=== PATIENT | female | born 1930 | race Hispanic/Latino ===

== ENCOUNTER 2016-10-20 18:00 | Inpatient (IN) | payer MEDICARE ==
[2016-10-20 18:03] VITALS: BMI 36.3
[2016-10-20] MEDS ORDERED: Morphine 4 mg/ml ISec IVP STA (18:45)
[2016-10-20 18:55] LABS: ADD MANUAL DIFF? NO
--- NOTE | 2016-10-20 18:56 | ED PDOC ---
Arrival/HPI - General Chief Complaint: Trauma Time Seen by Provider: 10/20/16 18:34 Historian: Patient - History of Present Illness Narrative History of Present Illness (Text): 10/20/16 18:45 Jennifer Garcia is a 86 year old female, with a history of hypertension, right arm fracture, left hip fracture and peripheral neuropathy, presents to the emergency room for evaluation of right hip pain status post mechanical fall around 17:00. Patient's neighbor found the patient on the floor after hearing a "thud" and called 911. Patient reports that she was turning around to move a dish to the table when she thinks she tripped and fell on the right side of the body. Patient reports that she lightly hit her right side of the head, but denies any loss of consciousness. Patient reports of pain to the right hip and leg. Patient presented to emergency room on 10/16/2016 for right lower extremity pain and was discharged home after negative US study. Denies fever, chills, headache, dizziness, chest pain, SOB, nausea, vomiting, diarrhea, or an other complaints at this time. PMD: . Time/Duration: 1-3 hours Symptom Onset: Sudden Severity Level: Mild Activities at Onset: Significant Context: Home, Slipped Past Medical History - Provider Review Nursing Documentation Reviewed: Yes - Infectious Disease Hx of Infectious Diseases: None - Tetanus Immunization Tetanus Immunization: Unknown - Past Medical History Past Medical History: Non-Contributing - Cardiac Hx Cardiac Disorders: Yes Hx Hypertension: Yes - Pulmonary Hx Respiratory Disorders: No - Neurological Hx Neurological Disorder: No - HEENT Hx HEENT Disorder: No - Renal Hx Renal Disorder: No - Endocrine/Metabolic Hx Endocrine Disorders: No - Hematological/Oncological Hx Blood Disorders: No - Integumentary Hx Dermatological Disorder: No - Musculoskeletal/Rheumatological Hx Musculoskeletal Disorders: Yes Hx Falls: Yes Hx Fractures: Yes (Left shoulder Fx 04/28/14) Other/Comment: Previous Fx: Right arm fracture and Left hip fx ,L1 fracture - Gastrointestinal Hx Gastrointestinal Disorders: Yes Hx Gastroesophageal Reflux: Yes - Genitourinary/Gynecological Hx Genitourinary Disorders: No - Psychiatric Hx Psychophysiologic Disorder: Yes Hx Anxiety: Yes Hx Panic Disorder: Yes Hx Substance Use: No - Past Surgical History Past Surgical History: No Previous - Surgical History Hx Appendectomy: Yes Hx Hysterectomy: Yes - Anesthesia Hx Anesthesia: Yes Hx Anesthesia Reactions: No Hx Malignant Hyperthermia: No - Suicidal Assessment Feels Threatened In Home Enviroment: No Family/Social History - Physician Review Nursing Documentation Reviewed: Yes Family/Social History: No Known Family HX Smoking Status: Never Smoked Hx Alcohol Use: No Hx Substance Use: No Hx Substance Use Treatment: No Allergies/Home Meds Allergies/Adverse Reactions: Allergies ibuprofen [From Advil] Allergy (Verified 10/20/16 18:03) RASH Home Medications: Home Meds Medication Instructions Recorded Confirmed Clonazepam [Klonopin] 0.5 mg PO .AM 01/08/16 10/20/16 Gabapentin [Neurontin] 100 mg PO BID 01/08/16 10/20/16 amLODIPine [Norvasc] 10 mg PO DAILY 01/08/16 10/20/16 Pregabalin [Lyrica] 50 mg PO TID 05/11/16 10/20/16 Calcium Carbonate/Vitamin D3 1 tab PO DAILY 10/16/16 10/20/16 [Caltrate 600 + D Soft Chew Tab] DULoxetine [Cymbalta] 30 mg PO DAILY 10/16/16 10/20/16 Multivitamin [Multivitamins] 1 tab PO DAILY 10/16/16 10/20/16 clonazePAM [Klonopin] 1 mg PO HS 10/16/16 10/20/16 Review of Systems - Physician Review All systems were reviewed & negative as marked: Yes - Review of Systems Constitutional: Normal. absent: Fatigue, Fevers Respiratory: Normal Cardiovascular: Normal Musculoskeletal: Other (right hip and leg pain ) Psychiatric: Normal Physical Exam - Physical Exam Narrative Physical Exam (Text): Constitutional: No acute distress. Head: Normocephalic. Atraumatic. Eyes: PERRL. ENT: Moist mucous membranes. Neck: Supple. Cardiovascular: Regular rate. Chest: No tenderness. Respiratory: Clear to auscultation bilaterally. GI: Soft. Nontender. Nondistended. Back: No CVA tenderness. Musculoskeletal: Right leg shortened and externally rotated. Edematous femur. Skin: No rash. Neurologic: Alert, no focal deficit. Vital Signs Reviewed: Yes Vital Signs Temp Pulse Resp BP Pulse Ox 10/20/16 18:19 97.6 F 70 16 159/68 H 96 Temperature: Afebrile Blood Pressure: Normal Pulse: Regular Respiratory Rate: Normal Appearance: Positive for: Non-Toxic Pain Distress: Mild Mental Status: Positive for: Alert and Oriented X 3 Medical Decision Making ED Course and Treatment: 10/20/16 18:59 Impression: A 86 year old female who presents to the emergency room for evaluation of right hip pain status post mechanical fall. Plan: -- EKG -- CT head -- Labs -- Chest X-ray -- Morphine -- X-ray hip -- Reassess and disposition Progress Notes: 10/20/16 19:45 X-ray shows right hip fracture. 10/20/16 19:51 CT head results reviewed: IMPRESSION: No acute intracranial findings. Right lateral frontotemporal scalp contusion. 10/20/16 20:09 Case discussed with who is aware and agrees with the plan to admit patient to the hospital for hip fracture. Accepts patient under hospitalist service with Dr. Villalta on orthopedic consult. - Lab Interpretations Lab Results: 10/20/16 18:15 10/20/16 18:15 Lab Results 10/20/16 18:15: WBC 6.7, RBC 3.98, Hgb 11.5 L, Hct 33.7 L, MCV 84.7, MCH 28.9, MCHC 34.1, RDW 14.8 H, Plt Count 275, MPV 10.1, Gran % 63.3, Lymph % (Auto) 28.3 , Osborne % (Auto) 6.7 H, Eos % (Auto) 1.6, Baso % (Auto) 0.1, Gran # 4.22, Lymph # 1.9, Osborne # 0.5, Eos # 0.1, Baso # 0.01, PT 11.4, INR 1.06, APTT 28.4, Sodium 139, Potassium 3.8, Chloride 100, Carbon Dioxide 28, Anion Gap 15, BUN 29 H, Creatinine 0.8, Est GFR ( Amer) > 60, Est GFR (Non-Af Amer) > 60, Random Glucose 145 H, Calcium 9.0, Total Bilirubin 0.5, AST 16, ALT 14, Alkaline Phosphatase 77, Total Creatine Kinase 47, Total Protein 8.2, Albumin 4.2, Globulin 4.0, Albumin/Globulin Ratio 1.1, Blood Type O POSITIVE, Antibody Screen Negative, BBK History Checked Patient has bt I have reviewed the lab results: Yes - RAD Interpretation Narrative RAD Interpretations (Text): EXAM: CT Head Without Intravenous Contrast. FINDINGS: Brain: Volume loss. Chronic small vessel white matter ischemic change. 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 No acute hemorrhage. No acute infarct. Calcification of the wall of the distal internal carotid and vertebral arteries. Ventricles: Unremarkable. No ventriculomegaly. Bones/joints: Unremarkable. No acute fracture. Soft tissues: There is mild increased density swelling of the right lateral frontotemporal scalp. Sinuses: Mild ethmoid sinus mucosal thickening. No fluid levels. Mastoid air cells: Unremarkable as visualized. No mastoid effusion. IMPRESSION: No acute intracranial findings. Right lateral frontotemporal scalp contusion. Non acute findings as above. Radiology Orders: 10/20/16 18:43 CHEST ONE VIEW [RAD] Stat HIP MIN 2V W/ PELVIS RT [RAD] Stat 10/20/16 18:44 HEAD W/O CONTRAST [CT] Stat Vice President Safety: Radiologist - EKG Interpretation Interpreted by ED Physician: Yes Type: 12 lead EKG - Medication Orders Current Medication Orders: Acetaminophen (Tylenol 325mg Tab) 650 mg PO Q6 PRN PRN Reason: Fever >100.4 F Amlodipine Besylate (Norvasc) 10 mg PO DAILY ZENOBIA Calcium/Vitamin D (Oscal-D 250 Mg-125 Units Tab) 2 tab PO DAILY ZENOBIA Calcium/Vitamin D (Oscal-D 250 Mg-125 Units Tab) 3 tab PO DAILY ZENOBIA Clonazepam (Klonopin) 0.5 mg PO .AM ZENOBIA PRN Reason: Protocol Clonazepam (Klonopin) 1 mg PO HS ZENOBIA PRN Reason: Protocol Duloxetine HCl (Cymbalta) 30 mg PO DAILY ZENOBIA Gabapentin (Neurontin) 100 mg PO BID ZENOBIA PRN Reason: Protocol Sodium Chloride (Sodium Chloride 0.9%) 1,000 mls @ 50 mls/hr IV .Q20H ZENOBIA Morphine Sulfate (Morphine) 2 mg IVP Q4 PRN PRN Reason: Pain, Mild (1-3) Multivitamins (Thera Tab) 1 tab PO DAILY ZENOBIA Ondansetron HCl (Zofran Inj) 4 mg IVP Q6 PRN PRN Reason: Nausea/Vomiting Pantoprazole Sodium (Protonix Ec Tab) 40 mg PO DAILY ZENOBIA Pregabalin (Lyrica) 50 mg PO TID ZENOBIA Discontinued Medications Morphine Sulfate (Morphine) 4 mg IVP STAT STA Stop: 10/20/16 18:46 Last Admin: 10/20/16 19:00 Dose: 4 MG MAR Pain Assessment Document 10/20/16 19:00 HI (Rec: 10/20/16 19:01 [id number]) Pain Reassessment Is this a pain reassessment? Yes Sleep Is patient sleeping during reassessment? No Presence of Pain Presence of Pain Yes Pain Scale Used Pain Scale Used Numeric IVP Administration Document 10/20/16 19:00 HI (Rec: 10/20/16 19:01 [id number]) Charges for Administration # of IVP Administrations 1 - Scribe Statement The provider has reviewed the documentation as recorded by the Beata Reynoso Provider Attestation: All medical record entries made by the Beata were at my direction and personally dictated by me. I have reviewed the chart and agree that the record accurately reflects my personal performance of the history, physical exam, medical decision making, and the department course for this patient. I have also personally directed, reviewed, and agree with the discharge instructions and disposition. Disposition/Present on Arrival - Present on Arrival Any Indicators Present on Arrival: No History of DVT/PE: No History of Uncontrolled Diabetes: No Urinary Catheter: No History of Decub. Ulcer: No History Surgical Site Infection Following: None - Disposition Have Diagnosis and Disposition been Completed?: Yes Diagnosis: Fracture of hip Disposition: HOSPITALIZED Disposition Time: 19:25 Patient Plan: Admission Condition: STABLE
[2016-10-20 19:08] LABS: ALB/GLOB RATIO 1.1 (1.1-1.8); ALKALINE PHOSPHATASE 77 U/L (38-133); ALT/SGPT 14 U/L (7-56); AST/SGOT 16 U/L (15-39); BILIRUBIN,TOTAL 0.5 mg/dL (0.2-1.3); BLOOD UREA NITROGEN 29 mg/dL (7-21); CARBON DIOXIDE 28 mmol/L (21-33); CHLORIDE 100 mmol/L (98-107); GFR AFRICAN-AMERICAN > 60; GLUCOSE,RANDOM 145 mg/dL (70-110); POTASSIUM 3.8 mmol/L (3.6-5.0); SODIUM 139 mmol/L (132-148); TOTAL PROTEIN 8.2 g/dL (5.8-8.3)
[2016-10-20 19:34] LABS: BASO # 0.01 K/mm3 (0.0-2.0); BASO % 0.1 % (0.0-3.0); EOS # 0.1 (0.0-0.7); EOS % 1.6 % (1.5-5.0); GRAN # 4.22 (1.4-6.5); GRAN % 63.3 % (50.0-68.0); HEMATOCRIT 33.7 % (36.0-48.0); LYMPH # 1.9 (1.2-3.4); LYMPH % 28.3 % (22.0-35.0); MEAN CELL VOLUME 84.7 fL (80.0-105.0); MEAN CORPUSCULAR HEMOGLOBIN 28.9 pg (25.0-35.0); MEAN CORPUSCULAR HGB CONC 34.1 g/dl (31.0-37.0); MEAN PLATELET VOLUME 10.1 fl (7.0-11.0); MONO # 0.5 (0.1-0.6); MONO % 6.7 % (1.0-6.0); PLATELET COUNT 275 10^3/uL (120.0-450.0); RED CELL DISTRIBUTION WIDTH 14.8 % (11.5-14.5); WHITE BLOOD COUNT 6.7 10^3/ul (4.5-11.0)
[2016-10-20 19:42] LABS: INR 1.06 (0.93-1.08); PARTIAL THROMBOPLASTIN TIME 28.4 Seconds (23.7-30.8)
--- NOTE | 2016-10-20 20:54 | CP.PCM.HP ---
<Johnna Braden - Last Filed: 10/20/16 20:48> History of Present Illness - History of Present Illness History of Present Illness: CC: mechanical fall 86 year old female with past medical history of HTN, multiple falls, L hip fx s/ p L hip sx, L shoulder fx, peripheral neuropathy, OA, depression, anxiety, chronic neck and low back pain presents after having mechanical fall at home. Patient states that she was taking something off a table and twisting to put it on the counter behind her when she fell on the right side of her body. She landed on her hip and hit her head lightly. Patient denies any LOC or open lacerations. Patient ambulates with help of walker. Patient's only c/o is mild right hip pain and mild left sided MARIE. Patient does have history of MARIE. Patient denies having any CP, SOB, abd pain, N/V/D/C, dysuria. PMHx: stated above Sx: appendectomy, Left hip sx, hysterectomy Meds: see MAR Social: no tobacco, ETOH or drug use. 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 Adam Present on Admission - Present on Admission Any Indicators Present on Admission: No Review of Systems - Constitutional Constitutional: Headache. absent: Chills, Fever - EENT Eyes: absent: Change in Vision, Other Visual Disturbances Nose/Mouth/Throat: absent: Nasal Congestion, Nasal Discharge, Sore Throat - Cardiovascular Cardiovascular: absent: Chest Pain, Dyspnea, Dyspnea on Exertion, Edema, Leg Edema, Palpitations, Pedal Edema - Respiratory Respiratory: absent: Cough, Dyspnea, Dyspnea on Exertion, Wheezing, Chest Congestion - Gastrointestinal Gastrointestinal: absent: Abdominal Pain, Constipation, Diarrhea, Nausea, Vomiting - Genitourinary Genitourinary: absent: Dysuria, Urinary Frequency - Musculoskeletal Musculoskeletal: Arthralgias (right hip pain ), Back Pain. absent: Numbness, Tingling - Integumentary Integumentary: absent: Lesions, Rash - Neurological Neurological: absent: Dizziness, Numbness, Weakness - Psychiatric Psychiatric: absent: Anxiety, Depression Past Patient History - Infectious Disease Hx of Infectious Diseases: None - Tetanus Immunizations Tetanus Immunization: Unknown - Past Social History Smoking Status: Never Smoked Alcohol: None Drugs: Denies Home Situation {Lives}: Other (mule rider) - CARDIAC Hx Cardiac Disorders: Yes Hx Hypertension: Yes - PULMONARY Hx Respiratory Disorders: No - NEUROLOGICAL Hx Neurological Disorder: No - HEENT Hx HEENT Problems: No - RENAL Hx Chronic Kidney Disease: No - ENDOCRINE/METABOLIC Hx Endocrine Disorders: No - HEMATOLOGICAL/ONCOLOGICAL Hx Blood Disorders: No - INTEGUMENTARY Hx Dermatological Problems: No - MUSCULOSKELETAL/RHEUMATOLOGICAL Hx Musculoskeletal Disorders: Yes Hx Falls: Yes Hx Fractures: Yes (Left shoulder Fx 04/28/14) Other/Comment: Previous Fx: Right arm fracture and Left hip fx ,L1 fracture - GASTROINTESTINAL Hx Gastrointestinal Disorders: Yes Hx Gastroesophageal Reflux: Yes - GENITOURINARY/GYNECOLOGICAL Hx Genitourinary Disorders: No - PSYCHIATRIC Hx Psychophysiologic Disorder: Yes Hx Anxiety: Yes Hx Panic Symptoms: Yes Hx Substance Use: No - SURGICAL HISTORY Hx Appendectomy: Yes Hx Hysterectomy: Yes - ANESTHESIA Hx Anesthesia: Yes Hx Anesthesia Reactions: No Hx Malignant Hyperthermia: No Meds Allergies/Adverse Reactions: Allergies Allergy/AdvReac Type Severity Reaction Status Date / Time ibuprofen [From Advil] Allergy RASH Verified 10/20/16 18:03 Physical Exam - Constitutional Appears: Non-toxic, No Acute Distress - Head Exam Head Exam: ATRAUMATIC, NORMAL INSPECTION - ENT Exam ENT Exam: Mucous Membranes Moist - Respiratory Exam Respiratory Exam: Clear to Auscultation Bilateral, NORMAL BREATHING PATTERN. absent: Rales, Rhonchi, Wheezes - Cardiovascular Exam Cardiovascular Exam: REGULAR RHYTHM, RRR, +S1, +S2. absent: Diastolic murmur, Gallop, Rubs, Systolic Murmur - GI/Abdominal Exam GI & Abdominal Exam: Normal Bowel Sounds, Soft. absent: Distended, Firm, Guarding, Rigid, Tenderness - Extremities Exam Extremities exam: Positive for: joint swelling (right hip swelling and tenderness noted ), tenderness, pedal pulses present. Negative for: calf tenderness, full ROM, pedal edema Additional comments: good sensation in LE B/L - Neurological Exam Neurological exam: Alert, Oriented x3 - Psychiatric Exam Psychiatric exam: Normal Affect, Normal Mood - Skin Skin Exam: Dry, Intact, Normal Color, Warm Results - Vital Signs Recent Vital Signs: Last Vital Signs Temp 97.6 F 10/20/16 18:19 Pulse 70 10/20/16 18:19 Resp 16 10/20/16 18:19 BP 159/68 H 10/20/16 18:19 Pulse Ox 96 10/20/16 18:19 - Labs Result Diagrams: 10/20/16 18:15 10/20/16 18:15 - EKG Data EKG Interpreted by: ER Physician Assessment & Plan - Assessment and Plan (Free Text) Assessment: 86 year old female with past medical history of HTN, multiple falls, L hip fx s/ p L hip sx, L shoulder fx, peripheral neuropathy, OA, depression, anxiety, chronic neck and low back pain is admitted for fracture of right hip. Xray of hip shows fracture. Head CT was negative for acute hemorrhage or fracture but did show right lateral frontotemporal scalp contusion. Plan: 1. Right hip fracture - Will consult orthopedics, Dr. Villalta for further recs - Pain management: Morphine 2 mg IV q4 prn - Zofran prn nausea - Tylenol prn fever - CXR and EKG for pre-op workup - Type and screen ordered - NS 50 cc 2. HTN - will continue to monitor vital signs - continue home medications: Norvasc 3. Peripheral neuropathy - Continue home medications: neurotin and cymbalta and Lyrica 4. History of depression - Continue home medications: Klonipin 1 mg po hs and .5 mg po AM 5. Prophylaxis - SCDs - Protonix - Heart healthy diet - Multi vit, John+vitD Case d/w attending Dr. Hernandez - Date & Time Date: 10/20/16 Time: 20:58 <Gabriel Hernandez - Last Filed: 10/20/16 23:17> Results - Vital Signs Recent Vital Signs: Last Vital Signs Temp 97.6 F 10/20/16 18:19 Pulse 72 10/20/16 21:10 Resp 16 10/20/16 21:10 BP 158/70 H 10/20/16 21:10 Pulse Ox 98 10/20/16 21:10 - Labs Result Diagrams: 10/20/16 18:15 10/20/16 18:15 Attending/Attestation - Attestation I have personally seen and examined this patient.: Yes I have fully participated in the care of the patient.: Yes I have reviewed all pertinent clinical information: Yes Notes (Text): 10/20/16 23:17 Seen when she was in bed # 18 in the ER. Agree with history, physical examination, assessment and plan.
[2016-10-20] MEDS: Sodium Chloride 0.9% 1,000 ML IV SCH (21:36)
[2016-10-20] MEDS: Morphine 2 mg/ml ISec IVP PRN (23:31)
[2016-10-21 01:09] LABS: URINE BILIRUBIN NEGATIVE (NEGATIVE); URINE BLOOD NEGATIVE (NEGATIVE); URINE GLUCOSE (UA) NEGATIVE (NEGATIVE); URINE KETONE NEGATIVE (NEGATIVE); URINE LEUKOCYTE ESTERASE NEGATIVE Leu/uL (NEGATIVE); URINE PROTEIN NEGATIVE mg/dL (<30 mg/dL); URINE UROBILINOGEN 0.2 E.U./dL (<1 E.U./dL)
[2016-10-21 01:14] LABS: URINE APPEARANCE CLEAR (CLEAR); URINE COLOR YELLOW (YELLOW)
[2016-10-21] MEDS: Morphine 2 mg/ml ISec IVP PRN ×3 (03:38→13:55)
[2016-10-21 06:50] LABS: ADD MANUAL DIFF? NO
[2016-10-21 07:01] LABS: INR 1.03 (0.93-1.08); PARTIAL THROMBOPLASTIN TIME 28.1 Seconds (23.7-30.8)
[2016-10-21 07:07] LABS: ALKALINE PHOSPHATASE 67 U/L (38-133); AST/SGOT 16 U/L (15-39); BILIRUBIN,TOTAL 0.5 mg/dL (0.2-1.3); BLOOD UREA NITROGEN 27 mg/dL (7-21); CALCIUM 8.3 mg/dL (8.4-10.5); CARBON DIOXIDE 31 mmol/L (21-33); CHLORIDE 102 mmol/L (98-107); GFR AFRICAN-AMERICAN > 60; GLUCOSE,RANDOM 116 mg/dL (70-110); POTASSIUM 3.9 mmol/L (3.6-5.0); SODIUM 138 mmol/L (132-148); TOTAL PROTEIN 7.1 g/dL (5.8-8.3)
[2016-10-21 07:11] LABS: ALT/SGPT < 6 U/L (7-56)
[2016-10-21 07:16] LABS: BASO # 0.01 K/mm3 (0.0-2.0); BASO % 0.2 % (0.0-3.0); EOS # 0.1 (0.0-0.7); EOS % 0.8 % (1.5-5.0); GRAN # 4.37 (1.4-6.5); GRAN % 65.6 % (50.0-68.0); HEMATOCRIT 29.5 % (36.0-48.0); LYMPH # 1.6 (1.2-3.4); LYMPH % 24.7 % (22.0-35.0); MEAN CELL VOLUME 85.3 fL (80.0-105.0); MEAN CORPUSCULAR HGB CONC 32.9 g/dl (31.0-37.0); MEAN PLATELET VOLUME 9.8 fl (7.0-11.0); MONO # 0.6 (0.1-0.6); MONO % 8.7 % (1.0-6.0); PLATELET COUNT 243 10^3/uL (120.0-450.0); WHITE BLOOD COUNT 6.7 10^3/ul (4.5-11.0)
[2016-10-21 07:19] LABS: FREE T4 1.34 ng/dL (0.78-2.19)
--- NOTE | 2016-10-21 07:21 | CT ---
PROCEDURE: CT HEAD WITHOUT CONTRAST. HISTORY: fall COMPARISON: 05/14/2016. TECHNIQUE: Axial computed tomography images were obtained through the head/brain without intravenous contrast. Radiation dose: Total exam DLP = 774.23 mGy-cm. FINDINGS: HEMORRHAGE: No intracranial hemorrhage. BRAIN: No mass effect or edema. Cortical atrophy, periventricular small vessel disease VENTRICLES: Unremarkable. No hydrocephalus. CALVARIUM: Unremarkable. PARANASAL SINUSES: Unremarkable as visualized. No significant inflammatory changes. MASTOID AIR CELLS: Unremarkable as visualized. No inflammatory changes. OTHER FINDINGS: None. IMPRESSION: No acute intracranial abnormalities. No significant findings to account for the clinical presentation. No significant interval change compared to the prior examination(s). Concordant results (preliminary interpretation) provided by [facility] or Bro. Procedure Completed: 19:18. Preliminary ([facility]) Report: Dictated and Authenticated: 19:39. Final Interpretation: 07:19. October 21, 2016.
[2016-10-21 07:33] LABS: THYROID STIMULATING HORMONE 0.81 mIU/mL (0.46-4.68)
--- NOTE | 2016-10-21 08:38 | RAD ---
PROCEDURE: Right Hip Radiographs. HISTORY: fall COMPARISON: None. FINDINGS: BONES: There is a comminuted intertrochanteric displaced fracture of the right hip. The pelvis is intact JOINTS: Normal. SOFT TISSUES: Normal. OTHER FINDINGS: None. IMPRESSION: Displaced comminuted intertrochanteric fracture of the right hip
--- NOTE | 2016-10-21 08:39 | RAD ---
PROCEDURE: CHEST RADIOGRAPH, 1 VIEW HISTORY: fall COMPARISON: 05/14/2016 FINDINGS: LUNGS: Clear. PLEURA: No pneumothorax or pleural fluid seen. CARDIOVASCULAR: Normal. OSSEOUS STRUCTURES: No significant abnormalities. VISUALIZED UPPER ABDOMEN: Normal. OTHER FINDINGS: None. IMPRESSION: No active disease.
[2016-10-21] MEDS: Calcium-Vit D 250 mg-125 Units Tab UD PO SCH ×2 (09:40→09:41)
[2016-10-21] MEDS: Pantoprazole 40 mg EC Tab PO SCH (09:40)
[2016-10-21] MEDS: Multivitamin Therapeutic Tab PO SCH (09:41)
[2016-10-21] MEDS ORDERED: Non Formulary Medication (Multivitamin [Multivitamins] 1 TAB) PO SCH (10:00)
--- NOTE | 2016-10-21 10:51 | CON ---
DATE: 10/21/2016 INDICATIONS: Preoperative evaluation. This is an 86-year-old woman, known to me, who suffered a mechanical fall and fractured her right hip, was admitted yesterday. Dr. Villalta plans a right hip repair for later this afternoon. She describes a mechanical fall. She slipped while turning at home. She fell with a mild head injury and a fracture of the right hip. There was no syncope, presyncope, lightheadedness, dizziness or vertigo. There was no chest pain, shortness of breath, orthopnea, PND, edema, fever, chills, cough, sputum production, hemoptysis, abdominal pain, nausea, vomiting, diarrhea, constipation , melena. PAST MEDICAL HISTORY: Notable for multiple falls. She has had shoulder surgery and a left hip repair. She has a history of hypertension, peripheral neuropathy, osteoporosis, spinal stenosis, restless legs syndrome, anemia. She has had a hysterectomy and appendectomy. There is no history of rheumatic fever , myocardial infarction, angina, congestive heart failure, arrhythmia, stroke, TIA or gout. There is no history of diabetes. In 05/2016, she underwent an echocardiogram, which revealed normal LV function with mild LVH, mild MR and moderate TR. MEDICATIONS: At the time of admission include aspirin, calcium plus vitamin D, Cymbalta, Klonopin, Lyrica, a multivitamin, Neurontin and Norvasc. ALLERGIES: SHE NOTES AN ALLERGY TO IBUPROFEN. She does not smoke. She does not drink. She lives at home with a friend. She has family nearby. REVIEW OF SYSTEMS: A 10-point otherwise unremarkable except as noted above. FAMILY HISTORY: Noncontributory. PHYSICAL EXAMINATION: GENERAL: She is a well-developed, elderly woman, lying on her bed on 5R, in no acute distress. HEENT: Reveals no neck vein distention, thyromegaly, or carotid bruits. Mucous membranes moist. Conjunctivae pink. NECK: Supple. CHEST: Lung villanueva clear throughout. HEART: Revealed normal first and second heart sounds. There is a soft systolic murmur along the left sternal border. The PMI is not displaced. ABDOMEN: Soft, bowel sounds present. No mass, organomegaly, tenderness, rebound, or guarding. No CVA tenderness. No abdominal aortic aneurysm. EXTREMITIES: Revealed no cyanosis, clubbing, or edema. NEUROLOGIC: She was awake, alert and oriented. PSYCHIATRIC: Normal as to mood and affect. SKIN: Warm and dry. No rash or cellulitis. PSYCHIATRIC: Normal as to mood and affect. LABORATORY AND IMAGING: A portable chest x-ray revealed no active disease. A hip and pelvis x-ray revealed displaced comminuted intertrochanteric fracture of the right hip. CT scan of the head reveals no acute intracranial abnormalities. White count normal, platelet count normal, hemoglobin 9.7, hematocrit 29.5. PT, INR, PTT normal. Electrolytes, BUN, creatinine, blood sugar unremarkable. LFTs unremarkable. Thyroid tests normal. Urinalysis negative. IMPRESSION: The patient is an 86-year-old woman with a mechanical fall and a fracture of the right hip, who is scheduled to undergo elective hip repair by Dr. Villalta later today. The EKG demonstrates regular sinus rhythm with a left anterior hemiblock, poor R-wave progression, nonspecific ST-wave changes. There is a possible septal [place]. There is no change from a previous EKG. At this time, I see no reason why she should not be able to go forward with the planned elective right hip repair. She should be considered an average cardiac risk. I will follow along with you postoperatively and make additional recommendations based on her clinical course. Shaggy Lang MD cc: [id number] TT: 10/21/2016 10:51:36 Confirmation # [id number] Dictation # [id number] [id number]
--- NOTE | 2016-10-21 13:53 | CARD ---
APPROVED REPORT EKG Measurement Heart [id number] <Conclusion> Sinus rhythm with 1st degree AV block Left axis deviation Inferior infarct, age undetermined Possible Anterior infarct, age undetermined Abnormal ECG
--- NOTE | 2016-10-21 16:41 | CP.PCM.PN ---
<Erwin Tijerina - Last Filed: 10/21/16 16:55> Subjective - Date & Time of Evaluation Date of Evaluation: 10/21/16 Time of Evaluation: 09:04 - Subjective Subjective: Pt seen and examined. Pt reports that she has pain in her right hip. Pt denies fever, chills,chest pain,shortness of breath. Objective - Vital Signs/Intake and Output Vital Signs (last 24 hours): Temp Pulse Resp BP Pulse Ox 98.3 F 82 20 153/66 H 96 10/21/16 07:30 10/21/16 07:30 10/21/16 07:30 10/21/16 07:30 10/21/16 07:30 Intake and Output: 10/21/16 10/21/16 06:59 18:59 Intake Total 500 0 Output Total 350 700 Balance 150 -700 - Medications Medications: Current Medications Acetaminophen (Tylenol 325mg Tab) 650 mg PO Q6 PRN PRN Reason: Fever >100.4 F Last Admin: 10/21/16 12:44 Dose: 650 mg Amlodipine Besylate (Norvasc) 10 mg PO DAILY [facility] Last Admin: 10/21/16 09:41 Dose: 10 mg Calcium/Vitamin D (Oscal-D 250 Mg-125 Units Tab) 2 tab PO DAILY [facility] Last Admin: 10/21/16 09:40 Dose: 2 tab Calcium/Vitamin D (Oscal-D 250 Mg-125 Units Tab) 3 tab PO DAILY [facility] Last Admin: 10/21/16 09:41 Dose: Not Given Clonazepam (Klonopin) 0.5 mg PO .AM [facility] PRN Reason: Protocol Last Admin: 10/21/16 09:40 Dose: 0.5 mg Clonazepam (Klonopin) 1 mg PO HS [facility] PRN Reason: Protocol Last Admin: 10/20/16 21:36 Dose: 1 mg Docusate Sodium (Colace) 100 mg PO BID [facility] Duloxetine HCl (Cymbalta) 30 mg PO DAILY [facility] Last Admin: 10/21/16 09:40 Dose: 30 mg Gabapentin (Neurontin) 100 mg PO BID [facility] PRN Reason: Protocol Last Admin: 10/21/16 09:40 Dose: 100 mg Sodium Chloride (Sodium Chloride 0.9%) 1,000 mls @ 50 mls/hr IV .Q20H [facility] Last Admin: 10/20/16 21:36 Dose: 50 mls/hr Morphine Sulfate (Morphine) 2 mg IVP Q4 PRN PRN Reason: Pain, Mild (1-3) Last Admin: 10/21/16 13:55 Dose: 2 mg Multivitamins (Thera Tab) 1 tab PO DAILY [facility] Last Admin: 10/21/16 09:41 Dose: 1 tab Ondansetron HCl (Zofran Inj) 4 mg IVP Q6 PRN PRN Reason: Nausea/Vomiting Pantoprazole Sodium (Protonix Ec Tab) 40 mg PO DAILY [facility] Last Admin: 10/21/16 09:40 Dose: 40 mg Pregabalin (Lyrica) 50 mg PO TID [facility] Last Admin: 10/21/16 13:06 Dose: 50 mg - Labs Labs: 10/21/16 06:30 10/21/16 06:30 PT 11.1 Seconds (9.9-11.8) 10/21/16 06:30 INR 1.03 (0.93-1.08) 10/21/16 06:30 APTT 28.1 Seconds (23.7-30.8) 10/21/16 06:30 - Constitutional Appears: No Acute Distress - Head Exam Head Exam: ATRAUMATIC, NORMOCEPHALIC - Eye Exam Eye Exam: EOMI, PERRL - ENT Exam ENT Exam: Mucous Membranes Moist. absent: Mucous Membranes Dry - Respiratory Exam Respiratory Exam: Clear to Ausculation Bilateral. absent: Rales, Rhonchi, Wheezes - Cardiovascular Exam Cardiovascular Exam: +S1, +S2. absent: Gallop, Rubs, Murmur - GI/Abdominal Exam GI & Abdominal Exam: Soft, Normal Bowel Sounds. absent: Distended, Guarding, Rigid, Tenderness - Extremities Exam Additional comments: Right hip tenderness - Neurological Exam Neurological Exam: Alert, Awake, Oriented x3 - Psychiatric Exam Psychiatric exam: Normal Affect, Normal Mood - Skin Skin Exam: Normal Color, Warm Assessment and Plan - Assessment and Plan (Free Text) Assessment: Right hip fracture Hip/Pelvis X-Ray - Displaced comminuted intertrochanteric fracture of the right hip (please see full report) Orthopedic surgeon, Dr. Villalta, consulted. Help appreciated. Cardiology, Dr. Lang, consulted, for cardiac clearance. EKG - no changes from previous EKG CXR - no active disease Most recent echocardiogram, 05/23/16, revealed EF of 59.3% Head CT - no acute intracranial findings (please see full report) Pt cleared for surgery as per cardiology OR planned for hip fracture repair today at 5 pm HTN Norvasc 10 mg po qd Peripheral neuropathy Neurontin Lyrica History of depression Cymbalta Klonopin Prophylactic Measures SCDs Protonix Multivitamins Calcium Colace for constipation Zofran for nausea <Rangasamy,Ajantha - Last Filed: 10/21/16 17:12> Objective - Vital Signs/Intake and Output Vital Signs (last 24 hours): Temp Pulse Resp BP Pulse Ox 98.3 F 82 20 153/66 H 96 10/21/16 07:30 10/21/16 07:30 10/21/16 07:30 10/21/16 07:30 10/21/16 07:30 Intake and Output: 10/21/16 10/21/16 06:59 18:59 Intake Total 500 0 Output Total 350 700 Balance 150 -700 - Medications Medications: Current Medications Acetaminophen (Tylenol 325mg Tab) 650 mg PO Q6 PRN PRN Reason: Fever >100.4 F Last Admin: 10/21/16 12:44 Dose: 650 mg Amlodipine Besylate (Norvasc) 10 mg PO DAILY [facility] Last Admin: 10/21/16 09:41 Dose: 10 mg Calcium/Vitamin D (Oscal-D 250 Mg-125 Units Tab) 2 tab PO DAILY [facility] Last Admin: 10/21/16 09:40 Dose: 2 tab Calcium/Vitamin D (Oscal-D 250 Mg-125 Units Tab) 3 tab PO DAILY [facility] Last Admin: 10/21/16 09:41 Dose: Not Given Clonazepam (Klonopin) 0.5 mg PO .AM [facility] PRN Reason: Protocol Last Admin: 10/21/16 09:40 Dose: 0.5 mg Clonazepam (Klonopin) 1 mg PO HS [facility] PRN Reason: Protocol Last Admin: 10/20/16 21:36 Dose: 1 mg Docusate Sodium (Colace) 100 mg PO BID [facility] Last Admin: 10/21/16 16:59 Dose: Not Given Duloxetine HCl (Cymbalta) 30 mg PO DAILY [facility] Last Admin: 10/21/16 09:40 Dose: 30 mg Gabapentin (Neurontin) 100 mg PO BID [facility] PRN Reason: Protocol Last Admin: 10/21/16 17:00 Dose: Not Given Sodium Chloride (Sodium Chloride 0.9%) 1,000 mls @ 50 mls/hr IV .Q20H [facility] Last Admin: 10/20/16 21:36 Dose: 50 mls/hr Morphine Sulfate (Morphine) 2 mg IVP Q4 PRN PRN Reason: Pain, Mild (1-3) Last Admin: 10/21/16 13:55 Dose: 2 mg Multivitamins (Thera Tab) 1 tab PO DAILY [facility] Last Admin: 10/21/16 09:41 Dose: 1 tab Ondansetron HCl (Zofran Inj) 4 mg IVP Q6 PRN PRN Reason: Nausea/Vomiting Pantoprazole Sodium (Protonix Ec Tab) 40 mg PO DAILY [facility] Last Admin: 10/21/16 09:40 Dose: 40 mg Pregabalin (Lyrica) 50 mg PO TID [facility] Last Admin: 10/21/16 17:00 Dose: Not Given - Labs Labs: 10/21/16 06:30 10/21/16 06:30 PT 11.1 Seconds (9.9-11.8) 10/21/16 06:30 INR 1.03 (0.93-1.08) 10/21/16 06:30 APTT 28.1 Seconds (23.7-30.8) 10/21/16 06:30 Assessment and Plan - Assessment and Plan (Free Text) Assessment: attending note; patient seen and examined with resident. Patient is a 86-year-old female admitted after a mechanical fall and right hip fracture. plan for ORIF today by Dr. Gamble. chest x-ray, EKG, recent echo normal. patient denies any chest pain, shortness of breath. cardiology evaluation appreciated. hypertension/neuropathy; continue home medications. upon discharge patient will follow-up with PMD Dr. Adam. Attending/Attestation - Attestation I have personally seen and examined this patient.: Yes I have fully participated in the care of the patient.: Yes I have reviewed all pertinent clinical information, including history, physical exam and plan: Yes
[2016-10-21] MEDS ORDERED: Bupivacaine 0.5% Inj(30mL) ONE (16:43)
[2016-10-21] MEDS ORDERED: Midazolam 2 MG/2 ML VIAL ONE (17:36)
[2016-10-21] MEDS ORDERED: Etomidate 20 mg/10ml Inj IV ONE (17:45)
[2016-10-21] MEDS ORDERED: Succinylcholine 200 mg/10 ml Inj IV ONE (17:52)
[2016-10-21] MEDS ORDERED: Lactated Ringer's 1,000 ML IV SCH (20:30)
[2016-10-21] MEDS: HYDROmorphone 0.5 mg/0.5 ml ISec IVP PRN ×2 (20:40→20:55)
[2016-10-21] MEDS ORDERED: HYDROmorphone 1 mg/ml ISec ONE (20:48)
--- NOTE | 2016-10-21 22:35 | OP ---
PROCEDURE DATE: 10/21/2016 PREOPERATIVE DIAGNOSIS: Right hip comminuted intertrochanteric fracture. POSTOPERATIVE DIAGNOSIS: Right hip comminuted intertrochanteric fracture. PROCEDURE: Open reduction internal fixation of a right hip fracture with intramedullary nail. SURGEON: Dr. Villalta ANESTHESIA: General COMPLICATIONS: None ESTIMATED BLOOD LOSS: 100 mL IMPLANT: A Synthes trochanteric entry intramedullary nail. INDICATIONS FOR PROCEDURE: This is an 86-year-old female who presented status post fall with right h ip pain. Clinical examination was consistent with an externally rotated right lower extremity. Pain with passive range of motion of the right hip. Radiographic examination was consistent with a commi nuted right hip intertrochanteric fracture. Recommendations were for open reduction and internal fix ation of the fracture once the patient was medically optimized. The risks, benefits, and alternative s of procedure were discussed with the patient and informed consent was obtained. OPERATIVE PROCEDURE: After surgical site was found and verified in preoperative holding area, the pa tient was taken to the operating room and placed supine on the operating room table. After administr ation of general anesthesia, patient received 2 grams of Ancef IV. The patient was positioned on the fracture table with the right lower extremity in a traction boot. Care was taken to make sure all b gray prominences and nerves were well padded and protected and the C-arm imaging intensifier was broug ht in and provisional reduction was performed. Reduction was checked in both AP and lateral planes. Satisfied, the right lower extremity was prepped and draped in usual sterile fashion. Bony landmark s were identified about the right hip. An approximately 3 cm incision was made proximal to the tip o f the greater trochanter. The soft tissues were dissected bluntly down to the trochanter and the uri depin for our entry hole was placed on the tip of the trochanter. Our position was checked using the C-arm. Satisfied, the guidepin was inserted into the proximal aspect into the medullary canal of th e proximal femur. Again, the position of the guidepin was confirmed using the C-arm. Next, a step d rill was used to drill into the medullary canal of the proximal femur. At this point, the guidepin w as exchanged for a smooth tipped guidewire. The guidewire was recessed to the appropriate depth and the length of our nail was then measured. At this point, the medullary canal of the femur was reamed sequentially up to 12.5 mm. Next, the appropriate length nail was then inserted over the guidewire and recessed to the appropriate depth. This was confirmed using the C-arm as well as our fracture re duction. Through the outrigger jig, the guidepin was inserted on the lateral aspect of the proximal femur through a small incision on the mid aspect of the thigh. The guidepin for our hip screw was th en inserted into roughly the center-center position of the femoral head. This was confirmed using th e C-arm. Satisfied with the position of the guidepin and our reduction, the hole for our hip screw w as then drilled. At this point, the hip screw was then inserted over the guidewire and then locked i nto place by screwing down on the setscrew on the proximal aspect of the femur. At this poin, finall y the nail was then locked statically using 2 screws in the distal aspect of the nail. The jig was r emoved and final x-rays were taken, confirming good fracture reduction as well as good position of th e hardware. All our wounds were irrigated and closed in a layered fashion. A sterile dressing was a pplied. The patient was awakened from the procedure and taken to the recovery room in stable conditi on. Gigi Villalta MD cc: [id number] TT: 10/21/2016 22:35:10
[2016-10-22] MEDS: ceFAZolin 2 GM in Sodium Chloride 0.9% 100 ML IVPB SCH ×2 (01:52→09:21)
[2016-10-22] MEDS: Sodium Chloride 0.9% 1,000 ML IV SCH ×2 (06:19→20:32)
--- NOTE | 2016-10-22 08:23 | CP.PCM.PN ---
Subjective - Date & Time of Evaluation Date of Evaluation: 10/22/16 Time of Evaluation: 08:00 - Subjective Subjective: Stable on 5R s/o ORIF right hip. Sedated. No CP or SOB reported. V/S noted. PE: Lungs clear Cor.: S1S2 Abd.: soft Ext.: no edema Neuro.: sedated. Labs: pending CXR 10/22: Looks OK, not interpreted yet Objective - Vital Signs/Intake and Output Vital Signs (last 24 hours): Temp Pulse Resp BP Pulse Ox 101.1 F H 83 14 150/63 96 10/22/16 06:27 10/21/16 21:15 10/21/16 21:15 10/21/16 21:15 10/21/16 21:15 Intake and Output: 10/22/16 10/22/16 06:59 18:59 Intake Total 0 Output Total 75 Balance -75 - Medications Medications: Current Medications Acetaminophen (Tylenol 325mg Tab) 650 mg PO Q6 PRN PRN Reason: Fever >100.4 F Last Admin: 10/22/16 06:27 Dose: 650 mg Amlodipine Besylate (Norvasc) 10 mg PO DAILY [facility] Last Admin: 10/21/16 09:41 Dose: 10 mg Calcium/Vitamin D (Oscal-D 250 Mg-125 Units Tab) 2 tab PO DAILY [facility] Last Admin: 10/21/16 09:40 Dose: 2 tab Calcium/Vitamin D (Oscal-D 250 Mg-125 Units Tab) 3 tab PO DAILY [facility] Last Admin: 10/21/16 09:41 Dose: Not Given Clonazepam (Klonopin) 0.5 mg PO .AM [facility] PRN Reason: Protocol Last Admin: 10/21/16 09:40 Dose: 0.5 mg Clonazepam (Klonopin) 1 mg PO HS [facility] PRN Reason: Protocol Last Admin: 10/20/16 21:36 Dose: 1 mg Docusate Sodium (Colace) 100 mg PO BID [facility] Last Admin: 10/21/16 16:59 Dose: Not Given Duloxetine HCl (Cymbalta) 30 mg PO DAILY [facility] Last Admin: 10/21/16 09:40 Dose: 30 mg Enoxaparin Sodium (Lovenox) 30 mg SC DAILY [facility] PRN Reason: Protocol Gabapentin (Neurontin) 100 mg PO BID [facility] PRN Reason: Protocol Last Admin: 10/21/16 17:00 Dose: Not Given Sodium Chloride (Sodium Chloride 0.9%) 1,000 mls @ 50 mls/hr IV .Q20H [facility] Last Admin: 10/22/16 06:19 Dose: 50 mls/hr Morphine Sulfate (Morphine) 2 mg IVP Q4 PRN PRN Reason: Pain, Mild (1-3) Last Admin: 10/21/16 13:55 Dose: 2 mg Multivitamins (Thera Tab) 1 tab PO DAILY [facility] Last Admin: 10/21/16 09:41 Dose: 1 tab Ondansetron HCl (Zofran Inj) 4 mg IVP Q6 PRN PRN Reason: Nausea/Vomiting Pantoprazole Sodium (Protonix Ec Tab) 40 mg PO DAILY [facility] Last Admin: 10/21/16 09:40 Dose: 40 mg Pregabalin (Lyrica) 50 mg PO TID [facility] Last Admin: 10/21/16 17:00 Dose: Not Given - Labs Labs: 10/21/16 06:30 10/21/16 06:30 PT 11.1 Seconds (9.9-11.8) 10/21/16 06:30 INR 1.03 (0.93-1.08) 10/21/16 06:30 APTT 28.1 Seconds (23.7-30.8) 10/21/16 06:30 Assessment and Plan - Assessment and Plan (Free Text) Plan: Assessment: Fall at home with fx right hip and mild head trauma S/P ORIF right hip 10/21/16 H/O Falls, shoulder and left hip surgery HBP Abn. ECG PN OA Spinal Stenosis RLS Plan: Await AM labs As per ortho PT
--- NOTE | 2016-10-22 08:31 | RAD ---
HISTORY: FEVER R/O PNA COMPARISON: 10/20/2016 FINDINGS: LUNGS: No active pulmonary disease. PLEURA: No significant pleural effusion identified, no pneumothorax apparent. CARDIOVASCULAR: Normal. OSSEOUS STRUCTURES: No significant abnormalities. VISUALIZED UPPER ABDOMEN: Normal. OTHER FINDINGS: None. IMPRESSION: No active disease.
--- NOTE | 2016-10-22 08:51 | RAD ---
PROCEDURE: Right hip two views HISTORY: post op right hip orif COMPARISON: TECHNIQUE: Portable supine FINDINGS: There is a long intramedullary pan and a compression screw in the right hip IMPRESSION: Internal fixation right intertrochanteric fracture
[2016-10-22] MEDS: Calcium-Vit D 250 mg-125 Units Tab UD PO SCH ×2 (09:17)
[2016-10-22] MEDS: Pantoprazole 40 mg EC Tab PO SCH (09:18)
[2016-10-22] MEDS: Multivitamin Therapeutic Tab PO SCH (09:18)
[2016-10-22] MEDS: Enoxaparin 30 mg Syringe SC SCH (09:21)
[2016-10-22 09:24] LABS: ADD MANUAL DIFF? NO
[2016-10-22 09:30] LABS: GRAN # 8.34 (1.4-6.5); GRAN % 83.6 % (50.0-68.0); LYMPH # 0.9 (1.2-3.4); LYMPH % 8.8 % (22.0-35.0); MEAN CELL VOLUME 84.4 fL (80.0-105.0); MEAN CORPUSCULAR HEMOGLOBIN 28.3 pg (25.0-35.0); MEAN CORPUSCULAR HGB CONC 33.5 g/dl (31.0-37.0); MEAN PLATELET VOLUME 10.2 fl (7.0-11.0); MONO # 0.8 (0.1-0.6); MONO % 7.6 % (1.0-6.0); PLATELET COUNT 210 10^3/uL (120.0-450.0); RED CELL DISTRIBUTION WIDTH 15.1 % (11.5-14.5)
[2016-10-22] MEDS ORDERED: Oxycodone/Acetaminophen 5/325 mg Tab PO PRN (09:31)
[2016-10-22 09:58] LABS: ALKALINE PHOSPHATASE 57 U/L (38-133); ALT/SGPT 14 U/L (7-56); AST/SGOT 27 U/L (15-39); BILIRUBIN,TOTAL 0.6 mg/dL (0.2-1.3); BLOOD UREA NITROGEN 23 mg/dL (7-21); CARBON DIOXIDE 25 mmol/L (21-33); CHLORIDE 107 mmol/L (98-107); GFR AFRICAN-AMERICAN > 60; GLUCOSE,RANDOM 168 mg/dL (70-110); MAGNESIUM 1.8 mg/dL (1.7-2.2); PHOSPHOROUS 3.2 mg/dL (2.5-4.5); SODIUM 138 mmol/L (132-148); TOTAL PROTEIN 6.2 g/dL (5.8-8.3)
[2016-10-22 10:14] LABS: HEMATOCRIT 23.3 % (36.0-48.0)
--- NOTE | 2016-10-22 12:01 | RAD ---
PROCEDURE: Fluoroscopy up to 1 hr. HISTORY: ORIF RT HIP COMPARISON: None. TECHNIQUE: Standard protocol for this study/examination. FINDINGS: Submitted images from the current procedure: 6.0 IMPRESSION: Less than 1 hr fluoroscopic time utilized during performance of the procedure.
--- NOTE | 2016-10-22 13:47 | CT ---
PROCEDURE: CT HEAD WITHOUT CONTRAST. HISTORY: altered mental status COMPARISON: 10/20/2016. TECHNIQUE: Axial computed tomography images were obtained through the head/brain without intravenous contrast. Radiation dose: Total exam DLP = 756.38 mGy-cm. FINDINGS: HEMORRHAGE: No intracranial hemorrhage. BRAIN: Focal, geographic area of low attenuation corresponding to the distribution of a branch vessel of the right anterior cerebral artery consistent with acute, nonhemorrhagic infarct. This represents a new finding compared to the recent CT. VENTRICLES: Unremarkable. No hydrocephalus. CALVARIUM: Unremarkable. PARANASAL SINUSES: Unremarkable as visualized. No significant inflammatory changes. MASTOID AIR CELLS: Unremarkable as visualized. No inflammatory changes. OTHER FINDINGS: None. IMPRESSION: Acute nonhemorrhagic infarct high right parietal region. New finding compared to the prior CT scan performed October 20, 2016 (completed at 19:18.).
[2016-10-22] MEDS ORDERED: Vancomycin 1gm in NS 250ml 250 ML IVPB STA (14:32)
--- NOTE | 2016-10-22 14:39 | CP.PCM.PN ---
<Erwin Tijerina - Last Filed: 10/22/16 15:21> Subjective - Date & Time of Evaluation Date of Evaluation: 10/22/16 Time of Evaluation: 07:15 - Subjective Subjective: Pt seen and examined. Pt very lethargic. Pt miminally responsive to verbal and motor stimuli. ROS unattainable due to pt's clinical condition. Objective - Vital Signs/Intake and Output Vital Signs (last 24 hours): Temp Pulse Resp BP Pulse Ox 100.6 F H 88 22 130/66 91 L 10/22/16 13:19 10/22/16 09:17 10/22/16 07:30 10/22/16 09:17 10/22/16 07:30 Intake and Output: 10/22/16 10/22/16 06:59 18:59 Intake Total 0 240 Output Total 75 Balance -75 240 - Medications Medications: Current Medications Acetaminophen (Tylenol 325mg Tab) 650 mg PO Q6 PRN PRN Reason: Fever >100.4 F Last Admin: 10/22/16 12:19 Dose: 650 mg Amlodipine Besylate (Norvasc) 10 mg PO DAILY [facility] Last Admin: 10/22/16 09:17 Dose: Not Given Calcium/Vitamin D (Oscal-D 250 Mg-125 Units Tab) 2 tab PO DAILY [facility] Last Admin: 10/22/16 09:17 Dose: Not Given Calcium/Vitamin D (Oscal-D 250 Mg-125 Units Tab) 3 tab PO DAILY [facility] Last Admin: 10/22/16 09:17 Dose: Not Given Clonazepam (Klonopin) 0.5 mg PO .AM [facility] PRN Reason: Protocol Last Admin: 10/21/16 09:40 Dose: 0.5 mg Clonazepam (Klonopin) 1 mg PO HS [facility] PRN Reason: Protocol Last Admin: 10/20/16 21:36 Dose: 1 mg Docusate Sodium (Colace) 100 mg PO BID [facility] Last Admin: 10/22/16 09:16 Dose: Not Given Duloxetine HCl (Cymbalta) 30 mg PO DAILY [facility] Last Admin: 10/22/16 09:17 Dose: Not Given Enoxaparin Sodium (Lovenox) 30 mg SC DAILY [facility] PRN Reason: Protocol Last Admin: 10/22/16 09:21 Dose: 30 mg Gabapentin (Neurontin) 100 mg PO BID [facility] PRN Reason: Protocol Last Admin: 10/22/16 09:17 Dose: Not Given Sodium Chloride (Sodium Chloride 0.9%) 1,000 mls @ 50 mls/hr IV .Q20H [facility] Last Admin: 10/22/16 06:19 Dose: 50 mls/hr Vancomycin HCl (Vancomycin 1gm) 250 mls @ 167 mls/hr IVPB STAT STA PRN Reason: Protocol Stop: 10/22/16 16:01 Cefepime HCl (Maxipime 1gm) 100 mls @ 100 mls/hr IVPB Q8 [facility] PRN Reason: Protocol Multivitamins (Thera Tab) 1 tab PO DAILY [facility] Last Admin: 10/22/16 09:18 Dose: Not Given Ondansetron HCl (Zofran Inj) 4 mg IVP Q6 PRN PRN Reason: Nausea/Vomiting Oxycodone/Acetaminophen (Percocet 5/325 Mg Tab) 1 tab PO Q6H PRN PRN Reason: Pain, severe (8-10) Stop: 10/25/16 09:32 Pantoprazole Sodium (Protonix Ec Tab) 40 mg PO DAILY [facility] Last Admin: 10/22/16 09:18 Dose: Not Given Pregabalin (Lyrica) 50 mg PO TID [facility] Last Admin: 10/22/16 12:59 Dose: Not Given - Labs Labs: 10/22/16 09:22 10/22/16 09:22 PT 11.1 Seconds (9.9-11.8) 10/21/16 06:30 INR 1.03 (0.93-1.08) 10/21/16 06:30 APTT 28.1 Seconds (23.7-30.8) 10/21/16 06:30 - Constitutional Appears: Toxic - Head Exam Head Exam: ATRAUMATIC, NORMOCEPHALIC - Eye Exam Eye Exam: absent: EOMI - Respiratory Exam Respiratory Exam: Clear to Ausculation Bilateral. absent: Rhonchi, Wheezes - Cardiovascular Exam Cardiovascular Exam: +S1, +S2. absent: Gallop, Rubs, Murmur - GI/Abdominal Exam GI & Abdominal Exam: Soft. absent: Distended - Extremities Exam Extremities Exam: absent: Pedal Edema - Neurological Exam Neurological Exam: Awake. absent: Alert, Normal Gait, Oriented x3 - Skin Skin Exam: Pallor Assessment and Plan - Assessment and Plan (Free Text) Assessment: Acute Ischemic Stroke Head CT (10/22) - acute nonhemorrhagic infarct high right parietal region Neurology, Dr. Irena Bojorquez, consulted. Help appreciated. Main SBP between 130-140 CT angio of head pending Carotid and vertebral artery duplex u/s pending MRI and MRA contraindicated due to metal object in hips Lipid panel pending HgbA1c pending NPO Speech and swallow eval and treat Asprin 300 mg per rectum Anemia: H/H: 7.8/23.3, decreased from yesterday Transfuse 2 units of prbcs Fever: Tmax 101.1 ID, Dr. Guzman, consulted. Help appreciated. CXR - no active disease Blood cultures, urine cultures, procalcitonin pending Maxipime 1 gm q24h Vancomycin 1 gm Right hip fracture Pt day 1 s/p right hip ORIF with intramedullary dorina; Hip/Pelvis X-Ray - Displaced comminuted intertrochanteric fracture of the right hip (please see full report) Orthopedic surgeon, Dr. Villalta, consulted. Help appreciated. Cardiology, Dr. Lang, consulted, for cardiac clearance. EKG - no changes from previous EKG CXR - no active disease Most recent echocardiogram, 05/23/16, revealed EF of 59.3% HTN Norvasc 10 mg po qd Peripheral neuropathy Neurontin Lyrica History of depression Cymbalta Klonopin Prophylactic Measures SCDs Protonix Multivitamins Calcium Colace for constipation Zofran for nausea <Nevaeh Baugh B - Last Filed: 10/23/16 08:45> Objective - Vital Signs/Intake and Output Vital Signs (last 24 hours): Temp Pulse Resp BP Pulse Ox 101 F H 94 H 18 128/63 94 L 10/22/16 17:11 10/22/16 17:11 10/22/16 17:11 10/22/16 17:11 10/22/16 16:00 Intake and Output: 10/22/16 10/22/16 06:59 18:59 Intake Total 0 240 Output Total 75 Balance -75 240 - Medications Medications: Current Medications Acetaminophen (Tylenol 325mg Tab) 650 mg PO Q6 PRN PRN Reason: Fever >100.4 F Last Admin: 10/22/16 12:19 Dose: 650 mg Acetaminophen (Tylenol 650 Mg Supp) 650 mg RC Q6H PRN PRN Reason: Fever >100.4 F Last Admin: 10/22/16 16:45 Dose: 650 mg Amlodipine Besylate (Norvasc) 10 mg PO DAILY [facility] Last Admin: 10/22/16 09:17 Dose: Not Given Calcium/Vitamin D (Oscal-D 250 Mg-125 Units Tab) 2 tab PO DAILY [facility] Last Admin: 10/22/16 09:17 Dose: Not Given Calcium/Vitamin D (Oscal-D 250 Mg-125 Units Tab) 3 tab PO DAILY [facility] Last Admin: 10/22/16 09:17 Dose: Not Given Clonazepam (Klonopin) 0.5 mg PO .AM [facility] PRN Reason: Protocol Last Admin: 10/21/16 09:40 Dose: 0.5 mg Clonazepam (Klonopin) 1 mg PO HS [facility] PRN Reason: Protocol Last Admin: 10/20/16 21:36 Dose: 1 mg Docusate Sodium (Colace) 100 mg PO BID [facility] Last Admin: 10/22/16 09:16 Dose: Not Given Duloxetine HCl (Cymbalta) 30 mg PO DAILY [facility] Last Admin: 10/22/16 09:17 Dose: Not Given Enoxaparin Sodium (Lovenox) 30 mg SC DAILY [facility] PRN Reason: Protocol Last Admin: 10/22/16 09:21 Dose: 30 mg Gabapentin (Neurontin) 100 mg PO BID [facility] PRN Reason: Protocol Last Admin: 10/22/16 09:17 Dose: Not Given Sodium Chloride (Sodium Chloride 0.9%) 1,000 mls @ 50 mls/hr IV .Q20H [facility] Last Admin: 10/22/16 06:19 Dose: 50 mls/hr Cefepime HCl (Maxipime 1gm) 100 mls @ 100 mls/hr IVPB Q8 [facility] PRN Reason: Protocol Multivitamins (Thera Tab) 1 tab PO DAILY [facility] Last Admin: 10/22/16 09:18 Dose: Not Given Ondansetron HCl (Zofran Inj) 4 mg IVP Q6 PRN PRN Reason: Nausea/Vomiting Oxycodone/Acetaminophen (Percocet 5/325 Mg Tab) 1 tab PO Q6H PRN PRN Reason: Pain, severe (8-10) Stop: 10/25/16 09:32 Pantoprazole Sodium (Protonix Ec Tab) 40 mg PO DAILY [facility] Last Admin: 10/22/16 09:18 Dose: Not Given Pantoprazole Sodium (Protonix Inj) 40 mg IVP DAILY [facility] Pregabalin (Lyrica) 50 mg PO TID [facility] Last Admin: 10/22/16 12:59 Dose: Not Given - Labs Labs: 10/22/16 09:22 10/22/16 09:22 PT 11.1 Seconds (9.9-11.8) 10/21/16 06:30 INR 1.03 (0.93-1.08) 10/21/16 06:30 APTT 28.1 Seconds (23.7-30.8) 10/21/16 06:30 Attending/Attestation - Attestation I have personally seen and examined this patient.: Yes I have fully participated in the care of the patient.: Yes I have reviewed all pertinent clinical information, including history, physical exam and plan: Yes Notes (Text): I have seen and examined patient at bedside with the resident. Agree with the above note with the following additions/exceptions: This is 86 year old female with history of RLS, spinal stenosis, osteoarthritis, HTN, multiple falls who got admitted s/p mechanical fall and developed right hip fracture s/p ORIF on . This morning patient was noted to be lethargic and found to have LUE motor deficit. CT head revealed acute non hemorrhagic infarct of right parietal region. Neuro consulted and recommended CT angio and MRI/ MRA. MR could not be done as she has a metal object post hip surgery. Carotid duplex also ordered. Family, PMD and orthopedics notified. Patient was transferred to telemetry. Neurochecks ordered. Patient was made NPO. All oral meds are held. Ordered speech/ swallow eval. Rectal aspirin given. Hba1c and lipid panel ordered. She was also found to have a drop in Hb post surgery. 2 units prbc ordered. She developed fever as well. [place] culture, CXR and procal ordered. ID consult obtained and patient was started on vanco and cefepime. Dr Nevaeh Baugh
[2016-10-22 15:19] LABS: CHOLESTEROL 102 mg/dL (130-200)
--- NOTE | 2016-10-22 15:53 | CT ---
PROCEDURE: CT Angiography of the Brain. HISTORY: acute stroke COMPARISON: Earlier same day nonenhanced CT TECHNIQUE: CT angiography of the intracranial arteries was performed. Coronal and sagittal maximum intensity projection reformated images were generated. 150 cc of Omni 300 FINDINGS: INTERNAL CEREBRAL ARTERIES: Unremarkable. The skull base, petrous, cavernous and supraclinoid segments are bilaterally widely patient. ANTERIOR CEREBRAL ARTERIES: Unremarkable. A1 and A2 segments are widely patent. Smaller distal branches unremarkable, as visualized. MIDDLE CEREBRAL ARTERIES: Unremarkable. M1 and M2 segments are widely patent. Perisylvian branches grossly symmetric. POSTERIOR CIRCULATION: Basilar Artery: Unremarkable. Distal Vertebral Arteries: Unremarkable. Posterior Cerebral Arteries: Unremarkable. Posterior Inferior Cerebellar Arteries: Unremarkable. ANEURYSM/ VASCULAR MALFORMATIONS: None. OTHER FINDINGS: The right posterior frontal and parietal infarct seen on the precontrast study is also demonstrated on the current exam. IMPRESSION: No evidence of vascular occlusion.
[2016-10-22] MEDS ORDERED: Morphine 2 mg/ml ISec IVP PRN (17:45)
[2016-10-22] MEDS: Cefepime 1gm in NS 100ml 100 ML IVPB SCH ×3 (20:33→21:37)
[2016-10-23] MEDS: Cefepime 1gm in NS 100ml 100 ML IVPB SCH (05:17)
[2016-10-23 06:06] LABS: ADD MANUAL DIFF? NO
[2016-10-23 06:34] LABS: GRAN # 8.17 (1.4-6.5); GRAN % 79.2 % (50.0-68.0); HEMATOCRIT 29.4 % (36.0-48.0); LYMPH # 1.1 (1.2-3.4); MEAN CORPUSCULAR HEMOGLOBIN 28.6 pg (25.0-35.0); MEAN PLATELET VOLUME 10.2 fl (7.0-11.0); MONO % 9.8 % (1.0-6.0); PLATELET COUNT 191 10^3/uL (120.0-450.0); RED CELL DISTRIBUTION WIDTH 14.9 % (11.5-14.5); WHITE BLOOD COUNT 10.3 10^3/ul (4.5-11.0)
[2016-10-23 06:44] LABS: ALB/GLOB RATIO 0.9 (1.1-1.8); ALKALINE PHOSPHATASE 61 U/L (38-133); ALT/SGPT 18 U/L (7-56); AST/SGOT 38 U/L (15-39); BILIRUBIN,TOTAL 1.3 mg/dL (0.2-1.3); BLOOD UREA NITROGEN 23 mg/dL (7-21); CALCIUM 7.9 mg/dL (8.4-10.5); CARBON DIOXIDE 25 mmol/L (21-33); CHLORIDE 111 mmol/L (98-107); GFR AFRICAN-AMERICAN > 60; GLUCOSE,RANDOM 143 mg/dL (70-110); PHOSPHOROUS 2.4 mg/dL (2.5-4.5); POTASSIUM 3.7 mmol/L (3.6-5.0); SODIUM 147 mmol/L (132-148); TOTAL PROTEIN 6.8 g/dL (5.8-8.3)
[2016-10-23] MEDS: Enoxaparin 30 mg Syringe SC SCH (09:36)
[2016-10-23] MEDS: Potassium & Sodium Phosphate PO SCH ×2 (09:37→15:39)
[2016-10-23] MEDS: Sodium Chloride 0.9% 1,000 ML IV SCH (09:39)
--- NOTE | 2016-10-23 11:02 | PN ---
DATE: 10/23/2016 SUBJECTIVE: The patient is seen lying in bed on telemetry. She is barely arousable. She is in no d istress. A CT angiogram was performed yesterday revealing unchanged right posterior frontal and parietal infar ct. She underwent open reduction and internal fixation of her right hip yesterday as well. CURRENT MEDICATIONS: Include Colace, Cymbalta, Lovenox, meropenem, morphine p.r.n., Neutra-Phos, Pro tonix, and IV fluids, as well as vancomycin. OBJECTIVE: GENERAL: She is a very elderly woman who is extremely lethargic at the present time. VITAL SIGNS: Her blood pressure is 118/52 with a pulse of 96 in sinus, occasional PVCs noted. Respi rations are 16. She is afebrile at present. Yesterday, her temperature was 100.8. HEENT: No JVD. CHEST: Bilateral scattered rhonchi. HEART: Systolic murmur is noted at the left sternal border and apex. ABDOMEN: Soft and nontender with normoactive bowel sounds. EXTREMITIES: No edema. DIAGNOSTIC DATA: Potassium is 3.7, BUN and creatinine 23 and 0.8, hemoglobin and hematocrit 10 and 2 9.4 with a white count of 10.3. Platelet count is 191,000. IMPRESSION: 1. Status post recent fall requiring surgical repair of right hip fracture. 2. Altered mental status, etiology uncertain, may be secondary to delayed clearance of sedative. Ho wever, neurology evaluation should be considered. 3. History of hypertension. RECOMMENDATIONS: Current management should be continued. If her mental status does not improve, con sideration should be given to a neurology evaluation. She remains at moderate to high increased risk for postoperative complications given her age and general condition at this time. We will continue to follow along and make further recommendations as appropriate. Yuan Adair MD cc: [id number] TT: 10/23/2016 11:02:20 Confirmation # [id number] Dictation # [id number] [email or web address]
[2016-10-23] MEDS: Meropenem 1 GM in Sodium Chloride 0.9% 100 ML IVPB SCH ×2 (11:13→21:36)
[2016-10-23] MEDS: Vancomycin 1gm in NS 250ml 250 ML IVPB SCH ×2 (11:17→21:37)
--- NOTE | 2016-10-23 13:56 | RAD ---
PROCEDURE: Right Femur Radiographs. HISTORY: rule out gas in tissues COMPARISON: None. TECHNIQUE: AP and Lateral Radiographs of the right femur. FINDINGS: FEMUR: Normal. No fracture. Intramedullary pan SOFT TISSUES: Normal. No evidence of gas in the soft tissues OTHER FINDINGS: None. IMPRESSION: Unremarkable radiographs of the right femur.
--- NOTE | 2016-10-23 13:58 | RAD ---
PROCEDURE: Right hip and proximal femur HISTORY: rule out gas in tissues COMPARISON: TECHNIQUE: Three views FINDINGS: There is an intra medullary pan and compression screw. There is no obvious gas in the soft tissues to suggest infection IMPRESSION: Negative study
--- NOTE | 2016-10-23 15:19 | CP.PCM.CON ---
History of Present Illness - History of Present Illness History of Present Illness: 86 year old female with PMH of HTN, osteoarthritis, anxiety, depression, history of chronic neck and lower back pain, S/P left hip fracture and surgery, S/P left shoulder fracture, S/P appendectomy, S/P hysterectomy was initially brought in to [facility] because of a fall she sustained after she was trying to pick something up from the floor. She fracture her right hip and she underwent intramedullary pan placement for it 3 days ago. She had been clinically stable but was noted to have post-operative fever yesterday. She was also noted to be lethargic and a CT of the head revealed an acute cerebral infarct. Because of the fever, Infectious Diseases consult is requested to further evaluate and manage. Currently, the patient is lethargic, arousable by verbal and tactile stimuli but full review of systems is unobtainable because of the patient's mental status. Social history: she has no history of smoking, no alcohol abuse, no illicit drug use; she lives at home with a campground caretaker and has had no recent travel outside of [place] in the past 3 months Review of Systems - Review of Systems Systems not reviewed;Unavailable: Altered Mental Status Past Patient History - Infectious Disease Hx of Infectious Diseases: None - Tetanus Immunizations Tetanus Immunization: Unknown - Past Social History Smoking Status: Never Smoked - CARDIAC Hx Hypercholesterolemia: Yes Hx Hypertension: Yes - PULMONARY Hx Respiratory Disorders: No - NEUROLOGICAL Hx Neurological Disorder: No - HEENT Hx HEENT Problems: No - RENAL Hx Chronic Kidney Disease: No - ENDOCRINE/METABOLIC Hx Endocrine Disorders: No - HEMATOLOGICAL/ONCOLOGICAL Hx Blood Transfusions: Yes Hx Blood Transfusion Reaction: No - INTEGUMENTARY Hx Dermatological Problems: No - MUSCULOSKELETAL/RHEUMATOLOGICAL Hx Arthritis: Yes Hx Falls: Yes Hx Fractures: Yes - GASTROINTESTINAL Hx Gastroesophageal Reflux: Yes - GENITOURINARY/GYNECOLOGICAL Hx Genitourinary Disorders: No - PSYCHIATRIC Hx Anxiety: Yes Hx Panic Symptoms: Yes - SURGICAL HISTORY Hx Surgeries: Yes - ANESTHESIA Hx Anesthesia Reactions: No Hx Malignant Hyperthermia: No Meds Allergies/Adverse Reactions: Allergies Allergy/AdvReac Type Severity Reaction Status Date / Time ibuprofen [From Advil] Allergy RASH Verified 10/20/16 18:03 - Medications Medications: Current Medications Acetaminophen (Tylenol 325mg Tab) 650 mg PO Q6 PRN PRN Reason: Fever >100.4 F Last Admin: 10/22/16 12:19 Dose: 650 mg Amlodipine Besylate (Norvasc) 10 mg PO DAILY [facility] Last Admin: 10/22/16 09:17 Dose: Not Given Calcium/Vitamin D (Oscal-D 250 Mg-125 Units Tab) 2 tab PO DAILY [facility] Last Admin: 10/22/16 09:17 Dose: Not Given Calcium/Vitamin D (Oscal-D 250 Mg-125 Units Tab) 3 tab PO DAILY [facility] Last Admin: 10/22/16 09:17 Dose: Not Given Clonazepam (Klonopin) 0.5 mg PO .AM [facility] PRN Reason: Protocol Last Admin: 10/21/16 09:40 Dose: 0.5 mg Clonazepam (Klonopin) 1 mg PO HS [facility] PRN Reason: Protocol Last Admin: 10/20/16 21:36 Dose: 1 mg Docusate Sodium (Colace) 100 mg PO BID [facility] Last Admin: 10/22/16 09:16 Dose: Not Given Duloxetine HCl (Cymbalta) 30 mg PO DAILY [facility] Last Admin: 10/22/16 09:17 Dose: Not Given Enoxaparin Sodium (Lovenox) 30 mg SC DAILY [facility] PRN Reason: Protocol Last Admin: 10/22/16 09:21 Dose: 30 mg Gabapentin (Neurontin) 100 mg PO BID [facility] PRN Reason: Protocol Last Admin: 10/22/16 09:17 Dose: Not Given Sodium Chloride (Sodium Chloride 0.9%) 1,000 mls @ 50 mls/hr IV .Q20H [facility] Last Admin: 10/22/16 06:19 Dose: 50 mls/hr Vancomycin HCl (Vancomycin 1gm) 250 mls @ 167 mls/hr IVPB STAT STA PRN Reason: Protocol Stop: 10/22/16 16:01 Cefepime HCl (Maxipime 1gm) 100 mls @ 100 mls/hr IVPB Q8 [facility] PRN Reason: Protocol Multivitamins (Thera Tab) 1 tab PO DAILY [facility] Last Admin: 10/22/16 09:18 Dose: Not Given Ondansetron HCl (Zofran Inj) 4 mg IVP Q6 PRN PRN Reason: Nausea/Vomiting Oxycodone/Acetaminophen (Percocet 5/325 Mg Tab) 1 tab PO Q6H PRN PRN Reason: Pain, severe (8-10) Stop: 10/25/16 09:32 Pantoprazole Sodium (Protonix Ec Tab) 40 mg PO DAILY [facility] Last Admin: 10/22/16 09:18 Dose: Not Given Pregabalin (Lyrica) 50 mg PO TID [facility] Last Admin: 10/22/16 12:59 Dose: Not Given Physical Exam - Constitutional Appears: Other (Lethargic, arousable by verbal and tactile stimuli) - ENT Exam ENT Exam: Mucous Membranes Moist - Neck Exam Neck exam: Negative for: Lymphadenopathy, Meningismus - Respiratory Exam Respiratory Exam: Decreased Breath Sounds - Cardiovascular Exam Cardiovascular Exam: +S1, +S2 - GI/Abdominal Exam GI & Abdominal Exam: Soft. absent: Tenderness - Extremities Exam Additional comments: right hip with dressings in place; there is note of swelling without erythema or bleeding; surgical wounds are closed without any bleeding or discharge Results - Vital Signs Recent Vital Signs: Last Vital Signs Temp 100.6 F H 10/22/16 13:19 Pulse 88 10/22/16 09:17 Resp 22 10/22/16 07:30 BP 130/66 10/22/16 09:17 Pulse Ox 91 L 10/22/16 07:30 - Labs Result Diagrams: 10/23/16 05:30 10/23/16 05:30 Labs: Laboratory Results - last 24 hr 10/22/16 09:22 WBC 10.0 D RBC 2.76 L Hgb 7.8 L Hct 23.3 L MCV 84.4 MCH 28.3 MCHC 33.5 RDW 15.1 H Plt Count 210 MPV 10.2 Gran % 83.6 H Lymph % (Auto) 8.8 L [place] % (Auto) 7.6 H Eos % (Auto) 0.0 L Baso % (Auto) 0.0 Gran # 8.34 H Lymph # 0.9 L [place] # 0.8 H Eos # 0.0 Baso # 0.00 Sodium 138 Potassium 4.0 Chloride 107 Carbon Dioxide 25 Anion Gap 10 BUN 23 H Creatinine 0.7 Est GFR ( Amer) > 60 Est GFR (Non-Af Amer) > 60 Random Glucose 168 H Calcium 8.0 L Phosphorus 3.2 Magnesium 1.8 Total Bilirubin 0.6 AST 27 ALT 14 Alkaline Phosphatase 57 Total Protein 6.2 Albumin 3.0 Globulin 3.1 Albumin/Globulin Ratio 1.0 L Assessment & Plan - Assessment and Plan (Free Text) Plan: Assessment Systemic Inflammatory Response Syndrome, R/O sepsis source to be determined who is presenting with post-op fever (POD #3 S/P intramedullary pan placement for right hip fracture) Acute encephalopathy in a patient with acute cerebral infarct HTN osteoarthritis anxiety depression history of chronic neck and lower back pain S/P left hip fracture and surgery S/P left shoulder fracture S/P appendectomy S/P hysterectomy Plan Started patient on Vancomycin and Merrem pending blood cx, urine cx, CXR, PCT, xray of the right hip area Discussed with Dr. Baugh - will await Neurology evaluation regarding encephalopathy; patient has no signs of meningismus and the fever is not sustained Will follow clinically
--- NOTE | 2016-10-23 18:15 | US ---
HISTORY: Leg pain and swelling. Evaluate for DVT PHYSICIAN(S): Serge Muro MD. TECHNIQUE: Duplex sonography and color-flow Doppler with graded compression were used to evaluate the deep venous systems of both lower extremities. The exam is extremely limited by the patient's inability to cooperate and bandages. The popliteal veins and tibial veins are not well seen FINDINGS: The visualized deep venous systems of both lower extremities are sonographically normal and compressible. Normal wave forms and augmentation are seen. There is no sonographic evidence for deep venous thrombosis in the visualized segments of both lower extremities. IMPRESSION: No sonographic evidence for deep venous thrombosis in the visualized segments of both lower extremities. Very limited study.
--- NOTE | 2016-10-23 18:18 | US ---
PROCEDURE: Bilateral carotid artery duplex ultrasound HISTORY: Carotid stenosis TIA PHYSICIAN(S): Serge Muro MD. TECHNIQUE: Duplex sonography and color-flow Doppler were used to evaluate the carotid bifurcations and limited segments of the vertebral arteries bilaterally. FINDINGS: There is mild smooth heterogeneous plaque noted at the carotid bifurcations bilaterally. The peak systolic velocity in the proximal right internal carotid artery is 94 cm/sec. This corresponds to a 20 to 39% proximal right ICA stenosis. Normal systolic velocities are noted in the proximal right external carotid artery. There is antegrade flow in the small right vertebral artery. The peak systolic velocity in the proximal left internal carotid artery is 73 cm/sec. This corresponds to a 20 to 39% proximal left ICA stenosis. Normal systolic velocities are noted in the proximal left external carotid artery. There is antegrade flow in the dominant left vertebral artery. IMPRESSION: 1. Bilateral 20-39% proximal ICA stenoses. 2. Antegrade flow in both vertebral arteries.
--- NOTE | 2016-10-23 19:41 | CP.PCM.PN ---
<Erwin Tijerina - Last Filed: 10/23/16 19:29> Subjective - Date & Time of Evaluation Date of Evaluation: 10/23/16 Time of Evaluation: 10:43 - Subjective Subjective: Pt seen and examined. Pt lethargic and confused. Pt thinks she is at her brother 's house. ROS unattainable due to pt's clinical condition following stroke. Objective - Vital Signs/Intake and Output Vital Signs (last 24 hours): Temp Pulse Resp BP Pulse Ox 101 F H 97 H 19 156/73 H 96 10/23/16 17:40 10/23/16 18:38 10/23/16 18:38 10/23/16 18:38 10/23/16 18:38 - Medications Medications: Current Medications Acetaminophen (Tylenol 325mg Tab) 650 mg PO Q6 PRN PRN Reason: Fever >100.4 F Last Admin: 10/22/16 12:19 Dose: 650 mg Acetaminophen (Tylenol 650 Mg Supp) 650 mg RC Q6H PRN PRN Reason: Fever >100.4 F Last Admin: 10/22/16 16:45 Dose: 650 mg Amlodipine Besylate (Norvasc) 10 mg PO DAILY [facility] Last Admin: 10/22/16 09:17 Dose: Not Given Calcium/Vitamin D (Oscal-D 250 Mg-125 Units Tab) 2 tab PO DAILY [facility] Last Admin: 10/22/16 09:17 Dose: Not Given Calcium/Vitamin D (Oscal-D 250 Mg-125 Units Tab) 3 tab PO DAILY [facility] Last Admin: 10/22/16 09:17 Dose: Not Given Clonazepam (Klonopin) 0.5 mg PO .AM [facility] PRN Reason: Protocol Last Admin: 10/21/16 09:40 Dose: 0.5 mg Clonazepam (Klonopin) 1 mg PO HS [facility] PRN Reason: Protocol Last Admin: 10/20/16 21:36 Dose: 1 mg Docusate Sodium (Colace) 100 mg PO BID [facility] Last Admin: 10/22/16 09:16 Dose: Not Given Duloxetine HCl (Cymbalta) 30 mg PO DAILY [facility] Last Admin: 10/22/16 09:17 Dose: Not Given Enoxaparin Sodium (Lovenox) 30 mg SC DAILY [facility] PRN Reason: Protocol Last Admin: 10/23/16 09:36 Dose: 30 mg Gabapentin (Neurontin) 100 mg PO BID [facility] PRN Reason: Protocol Last Admin: 10/22/16 09:17 Dose: Not Given Sodium Chloride (Sodium Chloride 0.9%) 1,000 mls @ 125 mls/hr IV .Q8H [facility] Last Admin: 10/23/16 09:39 Dose: 125 mls/hr Meropenem 1 gm/ Sodium (Chloride) 100 mls @ 100 mls/hr IVPB Q8 [facility] PRN Reason: Protocol Stop: 10/30/16 10:29 Last Admin: 10/23/16 11:13 Dose: 100 mls/hr Vancomycin HCl (Vancomycin 1gm) 250 mls @ 167 mls/hr IVPB Q12H [facility] PRN Reason: Protocol Last Admin: 10/23/16 11:17 Dose: 167 mls/hr Morphine Sulfate (Morphine) 2 mg IVP Q4H PRN PRN Reason: Pain, moderate (4-7) Last Admin: 10/22/16 18:02 Dose: 2 mg Multivitamins (Thera Tab) 1 tab PO DAILY [facility] Last Admin: 10/22/16 09:18 Dose: Not Given Ondansetron HCl (Zofran Inj) 4 mg IVP Q6 PRN PRN Reason: Nausea/Vomiting Oxycodone/Acetaminophen (Percocet 5/325 Mg Tab) 1 tab PO Q6H PRN PRN Reason: Pain, severe (8-10) Stop: 10/25/16 09:32 Pantoprazole Sodium (Protonix Ec Tab) 40 mg PO DAILY [facility] Last Admin: 10/22/16 09:18 Dose: Not Given Pantoprazole Sodium (Protonix Inj) 40 mg IVP DAILY [facility] Last Admin: 10/23/16 11:13 Dose: 40 mg Potassium Phos/Sodium Phos (Neutra-Phos) 1 pkt PO TID [facility] Last Admin: 10/23/16 15:39 Dose: Not Given Pregabalin (Lyrica) 50 mg PO TID [facility] Last Admin: 10/22/16 12:59 Dose: Not Given - Labs Labs: 10/23/16 05:30 10/23/16 05:30 PT 11.1 Seconds (9.9-11.8) 10/21/16 06:30 INR 1.03 (0.93-1.08) 10/21/16 06:30 APTT 28.1 Seconds (23.7-30.8) 10/21/16 06:30 - Constitutional Appears: Toxic - Head Exam Head Exam: ATRAUMATIC, NORMOCEPHALIC - Eye Exam Eye Exam: absent: EOMI, PERRL - ENT Exam ENT Exam: Mucous Membranes Dry. absent: Mucous Membranes Moist - Respiratory Exam Respiratory Exam: Clear to Ausculation Bilateral. absent: Rales, Rhonchi, Wheezes - Cardiovascular Exam Cardiovascular Exam: +S1, +S2. absent: Gallop, Rubs, Murmur - GI/Abdominal Exam GI & Abdominal Exam: Soft. absent: Distended, Tenderness - Extremities Exam Extremities Exam: Full ROM. absent: Pedal Edema - Neurological Exam Neurological Exam: Altered, Awake. absent: Alert, CN II-XII Intact, Oriented x3 Neuro motor strength exam: Left Upper Extremity: 0, Right Upper Extremity: 2/1, Left Lower Extremity: 2/1, Right Lower Extremity: 2/1 - Skin Skin Exam: Normal Color, Warm Assessment and Plan - Assessment and Plan (Free Text) Assessment: Acute Ischemic Stroke Head CT (10/22) - acute nonhemorrhagic infarct high right parietal region Neurology, Dr. Irena Bojorquez, consulted. Help appreciated. Main SBP between 130-140 CT angio of head negative (please see full report) Carotid and vertebral artery duplex u/s - bilateral 20-39& b/l proximal ICA stenoses (please see full report) MRI and MRA contraindicated due to metal object in hips Lipid panel pending HgbA1c 5.9 Pt on pureed diet and honey thick liquids, as per dietitian recs Palliative consult - Pt made DNR/DNI. Daughter, health care proxy, was present. Detailed conversation was head with daughter. Pending neuro recommendations Anemia: H/H: 10.0/29.4 Fever: Tmax 101 ID, Dr. Guzman, consulted. Help appreciated. CXR - no active disease procalcitonin 1.41 blood cultures negative after 24 hours urine cultures negative Maxipime 1 gm q24h Vancomycin 1 gm Hip/Pelvis X-Ray- no gas in soft tissue, no evidence of infection (please see full report) Femur X-Ray - unremarkable (please see full report) Right hip fracture Pt day 1 s/p right hip ORIF with intramedullary dorina; Hip/Pelvis X-Ray - Displaced comminuted intertrochanteric fracture of the right hip (please see full report) Orthopedic surgeon, Dr. Villalta, consulted. Help appreciated. Cardiology, Dr. Lang, consulted, for cardiac clearance. EKG - no changes from previous EKG CXR - no active disease Most recent echocardiogram, 05/23/16, revealed EF of 59.3% HTN Norvasc 10 mg po qd Peripheral neuropathy Neurontin Lyrica History of depression Cymbalta Klonopin Prophylactic Measures SCDs Protonix Multivitamins Calcium Colace for constipation Zofran for nausea <Nevaeh Baugh B - Last Filed: 10/24/16 07:54> Objective - Vital Signs/Intake and Output Vital Signs (last 24 hours): Temp Pulse Resp BP Pulse Ox 98.6 F 96 H 20 150/68 97 10/24/16 06:00 10/24/16 06:00 10/24/16 06:00 10/24/16 06:00 10/24/16 06:00 Intake and Output: 10/24/16 10/24/16 06:59 18:59 Intake Total 1935 Output Total 0 Balance 1935 - Medications Medications: Current Medications Acetaminophen (Tylenol 325mg Tab) 650 mg PO Q6 PRN PRN Reason: Fever >100.4 F Last Admin: 10/22/16 12:19 Dose: 650 mg Acetaminophen (Tylenol 650 Mg Supp) 650 mg RC Q6H PRN PRN Reason: Fever >100.4 F Last Admin: 10/23/16 21:37 Dose: 650 mg Amlodipine Besylate (Norvasc) 10 mg PO DAILY [facility] Last Admin: 10/22/16 09:17 Dose: Not Given Aspirin (Ecotrin) 81 mg PO DAILY [facility] Atorvastatin Calcium (Lipitor) 20 mg PO DIN [facility] Calcium/Vitamin D (Oscal-D 250 Mg-125 Units Tab) 2 tab PO DAILY [facility] Last Admin: 10/22/16 09:17 Dose: Not Given Calcium/Vitamin D (Oscal-D 250 Mg-125 Units Tab) 3 tab PO DAILY [facility] Last Admin: 10/22/16 09:17 Dose: Not Given Clonazepam (Klonopin) 0.5 mg PO .AM [facility] PRN Reason: Protocol Last Admin: 10/21/16 09:40 Dose: 0.5 mg Clonazepam (Klonopin) 1 mg PO HS [facility] PRN Reason: Protocol Last Admin: 10/20/16 21:36 Dose: 1 mg Docusate Sodium (Colace) 100 mg PO BID [facility] Last Admin: 10/22/16 09:16 Dose: Not Given Duloxetine HCl (Cymbalta) 30 mg PO DAILY [facility] Last Admin: 10/22/16 09:17 Dose: Not Given Enoxaparin Sodium (Lovenox) 30 mg SC DAILY [facility] PRN Reason: Protocol Last Admin: 10/23/16 09:36 Dose: 30 mg Gabapentin (Neurontin) 100 mg PO BID [facility] PRN Reason: Protocol Last Admin: 10/22/16 09:17 Dose: Not Given Sodium Chloride (Sodium Chloride 0.9%) 1,000 mls @ 125 mls/hr IV .Q8H [facility] Last Admin: 10/23/16 09:39 Dose: 125 mls/hr Meropenem 1 gm/ Sodium (Chloride) 100 mls @ 100 mls/hr IVPB Q8 [facility] PRN Reason: Protocol Stop: 10/30/16 10:29 Last Admin: 10/24/16 05:09 Dose: 100 mls/hr Vancomycin HCl (Vancomycin 1gm) 250 mls @ 167 mls/hr IVPB Q12H [facility] PRN Reason: Protocol Last Admin: 10/23/16 21:37 Dose: 167 mls/hr Morphine Sulfate (Morphine) 2 mg IVP Q4H PRN PRN Reason: Pain, moderate (4-7) Last Admin: 10/22/16 18:02 Dose: 2 mg Multivitamins (Thera Tab) 1 tab PO DAILY [facility] Last Admin: 10/22/16 09:18 Dose: Not Given Ondansetron HCl (Zofran Inj) 4 mg IVP Q6 PRN PRN Reason: Nausea/Vomiting Oxycodone/Acetaminophen (Percocet 5/325 Mg Tab) 1 tab PO Q6H PRN PRN Reason: Pain, severe (8-10) Stop: 10/25/16 09:32 Pantoprazole Sodium (Protonix Ec Tab) 40 mg PO DAILY [facility] Last Admin: 10/22/16 09:18 Dose: Not Given Potassium Phos/Sodium Phos (Neutra-Phos) 1 pkt PO TID [facility] Last Admin: 10/23/16 15:39 Dose: Not Given Pregabalin (Lyrica) 50 mg PO TID [facility] Last Admin: 10/22/16 12:59 Dose: Not Given - Labs Labs: 10/23/16 05:30 10/23/16 05:30 PT 11.1 Seconds (9.9-11.8) 10/21/16 06:30 INR 1.03 (0.93-1.08) 10/21/16 06:30 APTT 28.1 Seconds (23.7-30.8) 10/21/16 06:30 Attending/Attestation - Attestation I have personally seen and examined this patient.: Yes I have fully participated in the care of the patient.: Yes I have reviewed all pertinent clinical information, including history, physical exam and plan: Yes Notes (Text): I have seen and examined patient at bedside with the resident. Agree with the above note with the following additions/exceptions: This is 86 year old female with history of RLS, spinal stenosis, osteoarthritis, HTN, multiple falls who got admitted s/p mechanical fall and developed right hip fracture s/p ORIF on . Yesterday morning patient was noted to be lethargic and found to have LUE motor deficit. CT head revealed acute non hemorrhagic infarct of right parietal region. Neuro consulted and recommended CT angio and carotid duplex which was reviewed. Awaiting for official neuro consult. and MRI/ MRA. MR could not be done as she has a metal object post hip surgery. Swallow eval was done and they recommended puree diet with honey thick liquids. Aspirin and lipitor started. She also was given 2 units post hip surgery. Repeat Hb is 10. Patient is slight more arousable as compare to yesterday. Daughter is at bedside. Palliative care consult obtained and patient was made DNR, DNI and no peg. She also developed SIRS with unknown source currently on vanco and meropenem. Xray of hip area pending. Cultures are negative so far. Procal is 1.4. Dr Nevaeh Baugh
--- NOTE | 2016-10-23 20:08 | CON ---
DATE: 10/23/2016 This is an 86-year-old white female with a past medical history of hypertension, peripheral neuropath y, osteoporosis, spinal stenosis, anemia, restless leg syndrome. The patient had surgery on the left hip several years ago. The patient fell and broke her right hip. The patient had surgery, and now today found to have weakness on the left side of the body. Called to evaluate the patient. PAST MEDICAL HISTORY: As above. MEDICATIONS: Aspirin, Cymbalta, Klonopin, Lyrica, Neurontin, and Norvasc. THE PATIENT IS ALLERGIC TO IBUPROFEN. REVIEW OF SYSTEMS: A 10-point review of system was negative except fracture of the right hip and lef t-sided weakness. ON EXAMINATION: HEENT: Normocephalic, atraumatic. The patient is drowsy, following some 1-step simple commands. Pupils reactive. No facial asymmetry. Tongue midline. MOTOR EXAMINATION: Spontaneous movement of the right upper extremity noted, and weakness of the left side, left upper extremity and left lower extremity; status post surgery on the right. CEREBELLAR: Gait deferred. IMPRESSION: Right hemispheric infarct in the right parietal area causing left-sided weakness. Aura p in progress, and the patient had carotid Doppler. Will follow up the results. After swallowing is cleared will be able to give aspirin 1 p.o. daily. Carroll Bojorquez MD cc: [id number] TT: 10/23/2016 20:08:14 Confirmation # [id number] Dictation # [id number] [email or web address]
[2016-10-24] MEDS: Meropenem 1 GM in Sodium Chloride 0.9% 100 ML IVPB SCH ×3 (05:09→23:26)
[2016-10-24 07:55] LABS: ADD MANUAL DIFF? NO
[2016-10-24 08:07] LABS: BASO # 0.01 K/mm3 (0.0-2.0); BASO % 0.1 % (0.0-3.0); GRAN # 8.53 (1.4-6.5); GRAN % 85.2 % (50.0-68.0); HEMATOCRIT 27.1 % (36.0-48.0); LYMPH # 0.8 (1.2-3.4); LYMPH % 7.6 % (22.0-35.0); MEAN CELL VOLUME 84.7 fL (80.0-105.0); MEAN CORPUSCULAR HEMOGLOBIN 28.8 pg (25.0-35.0); MEAN CORPUSCULAR HGB CONC 33.9 g/dl (31.0-37.0); MEAN PLATELET VOLUME 9.9 fl (7.0-11.0); MONO # 0.7 (0.1-0.6); MONO % 7.1 % (1.0-6.0); PLATELET COUNT 223 10^3/uL (120.0-450.0); RED CELL DISTRIBUTION WIDTH 15.2 % (11.5-14.5)
[2016-10-24 08:19] LABS: ALB/GLOB RATIO 0.9 (1.1-1.8); ALKALINE PHOSPHATASE 68 U/L (38-133); ALT/SGPT 19 U/L (7-56); AST/SGOT 37 U/L (15-39); BILIRUBIN,TOTAL 1.1 mg/dL (0.2-1.3); BLOOD UREA NITROGEN 22 mg/dL (7-21); CALCIUM 7.7 mg/dL (8.4-10.5); CARBON DIOXIDE 23 mmol/L (21-33); CHLORIDE 112 mmol/L (95-110); GFR AFRICAN-AMERICAN > 60; GLUCOSE,RANDOM 142 mg/dL (70-110); SODIUM 148 mmol/L (132-148); TOTAL PROTEIN 6.9 g/dL (5.8-8.3)
--- NOTE | 2016-10-24 08:23 | CP.PCM.PN ---
Subjective - Date & Time of Evaluation Date of Evaluation: 10/24/16 Time of Evaluation: 08:00 - Subjective Subjective: Stable on 2R, s/p CVA, s/p right ORIF. No chest pain or SOB. V/S noted. PE: Lungs clear Cor.: S1S2 Abd.: soft Ext.: no edema Neuro.: weak left arm Labs 10/23 noted. CXR 10/22: NAD BCx2 NG at 24 hrs Urine c+s NG CTs (head) noted. Car. U/S: noted Objective - Vital Signs/Intake and Output Vital Signs (last 24 hours): Temp Pulse Resp BP Pulse Ox 98.6 F 96 H 20 150/68 97 10/24/16 06:00 10/24/16 06:00 10/24/16 06:00 10/24/16 06:00 10/24/16 06:00 Intake and Output: 10/24/16 10/24/16 06:59 18:59 Intake Total 1935 Output Total 0 Balance 1935 - Medications Medications: Current Medications Acetaminophen (Tylenol 325mg Tab) 650 mg PO Q6 PRN PRN Reason: Fever >100.4 F Last Admin: 10/22/16 12:19 Dose: 650 mg Acetaminophen (Tylenol 650 Mg Supp) 650 mg RC Q6H PRN PRN Reason: Fever >100.4 F Last Admin: 10/23/16 21:37 Dose: 650 mg Amlodipine Besylate (Norvasc) 10 mg PO DAILY [facility] Last Admin: 10/22/16 09:17 Dose: Not Given Aspirin (Ecotrin) 81 mg PO DAILY [facility] Atorvastatin Calcium (Lipitor) 20 mg PO DIN [facility] Calcium/Vitamin D (Oscal-D 250 Mg-125 Units Tab) 2 tab PO DAILY [facility] Last Admin: 10/22/16 09:17 Dose: Not Given Calcium/Vitamin D (Oscal-D 250 Mg-125 Units Tab) 3 tab PO DAILY [facility] Last Admin: 10/22/16 09:17 Dose: Not Given Clonazepam (Klonopin) 0.5 mg PO .AM [facility] PRN Reason: Protocol Last Admin: 10/21/16 09:40 Dose: 0.5 mg Clonazepam (Klonopin) 1 mg PO HS [facility] PRN Reason: Protocol Last Admin: 10/20/16 21:36 Dose: 1 mg Docusate Sodium (Colace) 100 mg PO BID [facility] Last Admin: 10/22/16 09:16 Dose: Not Given Duloxetine HCl (Cymbalta) 30 mg PO DAILY [facility] Last Admin: 10/22/16 09:17 Dose: Not Given Enoxaparin Sodium (Lovenox) 30 mg SC DAILY [facility] PRN Reason: Protocol Last Admin: 10/23/16 09:36 Dose: 30 mg Gabapentin (Neurontin) 100 mg PO BID [facility] PRN Reason: Protocol Last Admin: 10/22/16 09:17 Dose: Not Given Sodium Chloride (Sodium Chloride 0.9%) 1,000 mls @ 125 mls/hr IV .Q8H [facility] Last Admin: 10/23/16 09:39 Dose: 125 mls/hr Meropenem 1 gm/ Sodium (Chloride) 100 mls @ 100 mls/hr IVPB Q8 [facility] PRN Reason: Protocol Stop: 10/30/16 10:29 Last Admin: 10/24/16 05:09 Dose: 100 mls/hr Vancomycin HCl (Vancomycin 1gm) 250 mls @ 167 mls/hr IVPB Q12H [facility] PRN Reason: Protocol Last Admin: 10/23/16 21:37 Dose: 167 mls/hr Morphine Sulfate (Morphine) 2 mg IVP Q4H PRN PRN Reason: Pain, moderate (4-7) Last Admin: 10/22/16 18:02 Dose: 2 mg Multivitamins (Thera Tab) 1 tab PO DAILY [facility] Last Admin: 10/22/16 09:18 Dose: Not Given Ondansetron HCl (Zofran Inj) 4 mg IVP Q6 PRN PRN Reason: Nausea/Vomiting Oxycodone/Acetaminophen (Percocet 5/325 Mg Tab) 1 tab PO Q6H PRN PRN Reason: Pain, severe (8-10) Stop: 10/25/16 09:32 Pantoprazole Sodium (Protonix Ec Tab) 40 mg PO DAILY [facility] Last Admin: 10/22/16 09:18 Dose: Not Given Potassium Phos/Sodium Phos (Neutra-Phos) 1 pkt PO TID [facility] Last Admin: 10/23/16 15:39 Dose: Not Given Pregabalin (Lyrica) 50 mg PO TID [facility] Last Admin: 10/22/16 12:59 Dose: Not Given - Labs Labs: 10/24/16 07:30 10/23/16 05:30 PT 11.1 Seconds (9.9-11.8) 10/21/16 06:30 INR 1.03 (0.93-1.08) 10/21/16 06:30 APTT 28.1 Seconds (23.7-30.8) 10/21/16 06:30 Assessment and Plan - Assessment and Plan (Free Text) Plan: Assessment: Fall at home with fx right hip and mild head trauma S/P ORIF right hip 10/21/16 CVA, new H/O Falls, shoulder and left hip surgery HBP Abn. ECG PN OA Spinal Stenosis RLS Plan: As per ortho, neuro., medical team DNR/DNI noted.
--- NOTE | 2016-10-24 08:46 | PQF ANEMIA ---
This form is a permanent part of the medical record Dr. Baugh, Patient had fx right hip and is s/p ORIF. H/H dropped to 7.8/23.3 and was transfused with 2 UPRBC after surgery. Please provided specificity about type and severity of anemia. Clarification of your documentation is requested to better reflect the severity of illness and intensity of treatment of your patient. Indicators present [x] Anemia [x] Drop in H&H from [] 9.7___ to []___7.8/23.3 [x] Hypotension [] GI Bleed [x] Transfusion(s) [] Acute bleed other sites [x] Tachycardia [x] Surgical Procedure Blood Loss (expected not a complication) Other:[] Location in the medical record that reflects the above clinical findings: [ progress note] Treatment Provided: [yes 2 units of prbc] PHYSICIAN'S RESPONSE Based on your medical judgment of the clinical indicators outlined above, are you treating this patient for a known or suspected: [x] Acute blood loss anemia [] Chronic blood loss anemia [] Acute on Chronic blood loss anemia [] Anemia due to malignancy [] Anemia due to chemotherapy or radiation therapy [] Anemia of Chronic Disease, please specify: [] [] Other, please indicate type of anemia []____ [] If Unable to Determine, please check the box, sign and date. Present On Admission (POA) Indicator: [] Present at the time of admission [x] Not present at the time of admission [] Clinically Undetermined In responding to this query, please exercise your independent professional judgment. The fact that a question is asked does not imply that any particular answer is desired or expected. Thank you for your clarification on this documentation. If you have any questions please call:[ ] * Thank you, [ ]Leola Michelle [facility], #[id number] architectural model [employer] KELLIE
--- NOTE | 2016-10-24 08:55 | CP.PCM.CON ---
History of Present Illness - History of Present Illness History of Present Illness: Palliative consult requested by Dr Mimi Baugh Reason: Goals/Advance Care Planning 86 year old who presented to ED after a mechanical fall at home. She injured her right hip and head. She denies LOC. R Hips x ray showed a displaced comminuted intertrochanter fracture. CT of head negative for acute pathology. She had a R ORIF on 10/21/16. On 10/23/16 she was noted to have new left sided weakness, facial droop. Subsequent CT of head showed a right hemispheric infarct in the right parietal area. PMHx:HTN, multiple falls, L hip fracture s/p ORIF, L shoulder fracture, peripheral neuropathy, OA, depression. Social History: Non smoker, no alcohol or drug misuse. She lives with a time analysis clerk home care nurse. Family History: Non contributory. Advance Care Planning: The patent has a health care proxy. Her daughter, Veronika Cruz is health care POA. Review of System: Limited, patient has CVA with expressive aphasia. All systems negative Past Patient History - Infectious Disease Hx of Infectious Diseases: None - Tetanus Immunizations Tetanus Immunization: Unknown - Past Social History Smoking Status: Never Smoked - CARDIAC Hx Hypercholesterolemia: Yes Hx Hypertension: Yes - PULMONARY Hx Respiratory Disorders: No - NEUROLOGICAL Hx Neurological Disorder: No - HEENT Hx HEENT Problems: No - RENAL Hx Chronic Kidney Disease: No - ENDOCRINE/METABOLIC Hx Endocrine Disorders: No - HEMATOLOGICAL/ONCOLOGICAL Hx Blood Transfusions: Yes Hx Blood Transfusion Reaction: No - INTEGUMENTARY Hx Dermatological Problems: No - MUSCULOSKELETAL/RHEUMATOLOGICAL Hx Arthritis: Yes Hx Falls: Yes Hx Fractures: Yes - GASTROINTESTINAL Hx Gastroesophageal Reflux: Yes - GENITOURINARY/GYNECOLOGICAL Hx Genitourinary Disorders: No - PSYCHIATRIC Hx Anxiety: Yes Hx Panic Symptoms: Yes - SURGICAL HISTORY Hx Surgeries: Yes - ANESTHESIA Hx Anesthesia Reactions: No Hx Malignant Hyperthermia: No Meds Allergies/Adverse Reactions: Allergies Allergy/AdvReac Type Severity Reaction Status Date / Time ibuprofen [From Advil] Allergy RASH Verified 10/20/16 18:03 - Medications Medications: Current Medications Acetaminophen (Tylenol 325mg Tab) 650 mg PO Q6 PRN PRN Reason: Fever >100.4 F Last Admin: 10/22/16 12:19 Dose: 650 mg Acetaminophen (Tylenol 650 Mg Supp) 650 mg RC Q6H PRN PRN Reason: Fever >100.4 F Last Admin: 10/23/16 21:37 Dose: 650 mg Amlodipine Besylate (Norvasc) 10 mg PO DAILY [facility] Last Admin: 10/22/16 09:17 Dose: Not Given Aspirin (Ecotrin) 81 mg PO DAILY [facility] Atorvastatin Calcium (Lipitor) 20 mg PO DIN [facility] Calcium/Vitamin D (Oscal-D 250 Mg-125 Units Tab) 2 tab PO DAILY [facility] Last Admin: 10/22/16 09:17 Dose: Not Given Calcium/Vitamin D (Oscal-D 250 Mg-125 Units Tab) 3 tab PO DAILY [facility] Last Admin: 10/22/16 09:17 Dose: Not Given Clonazepam (Klonopin) 0.5 mg PO .AM [facility] PRN Reason: Protocol Last Admin: 10/21/16 09:40 Dose: 0.5 mg Clonazepam (Klonopin) 1 mg PO HS [facility] PRN Reason: Protocol Last Admin: 10/20/16 21:36 Dose: 1 mg Docusate Sodium (Colace) 100 mg PO BID [facility] Last Admin: 10/22/16 09:16 Dose: Not Given Duloxetine HCl (Cymbalta) 30 mg PO DAILY [facility] Last Admin: 10/22/16 09:17 Dose: Not Given Enoxaparin Sodium (Lovenox) 30 mg SC DAILY [facility] PRN Reason: Protocol Last Admin: 10/23/16 09:36 Dose: 30 mg Gabapentin (Neurontin) 100 mg PO BID [facility] PRN Reason: Protocol Last Admin: 10/22/16 09:17 Dose: Not Given Sodium Chloride (Sodium Chloride 0.9%) 1,000 mls @ 125 mls/hr IV .Q8H [facility] Last Admin: 10/23/16 09:39 Dose: 125 mls/hr Meropenem 1 gm/ Sodium (Chloride) 100 mls @ 100 mls/hr IVPB Q8 [facility] PRN Reason: Protocol Stop: 10/30/16 10:29 Last Admin: 10/24/16 05:09 Dose: 100 mls/hr Vancomycin HCl (Vancomycin 1gm) 250 mls @ 167 mls/hr IVPB Q12H [facility] PRN Reason: Protocol Last Admin: 10/23/16 21:37 Dose: 167 mls/hr Morphine Sulfate (Morphine) 2 mg IVP Q4H PRN PRN Reason: Pain, moderate (4-7) Last Admin: 10/22/16 18:02 Dose: 2 mg Multivitamins (Thera Tab) 1 tab PO DAILY [facility] Last Admin: 10/22/16 09:18 Dose: Not Given Ondansetron HCl (Zofran Inj) 4 mg IVP Q6 PRN PRN Reason: Nausea/Vomiting Oxycodone/Acetaminophen (Percocet 5/325 Mg Tab) 1 tab PO Q6H PRN PRN Reason: Pain, severe (8-10) Stop: 10/25/16 09:32 Pantoprazole Sodium (Protonix Ec Tab) 40 mg PO DAILY [facility] Last Admin: 10/22/16 09:18 Dose: Not Given Potassium Phos/Sodium Phos (Neutra-Phos) 1 pkt PO TID [facility] Last Admin: 10/23/16 15:39 Dose: Not Given Pregabalin (Lyrica) 50 mg PO TID [facility] Last Admin: 10/22/16 12:59 Dose: Not Given Physical Exam - Constitutional Appears: No Acute Distress, Chronically Ill - Head Exam Head Exam: NORMAL INSPECTION Additional comments: left facial droop - Eye Exam Eye Exam: Normal appearance, PERRL - ENT Exam ENT Exam: Mucous Membranes Moist, Normal Oropharynx - Neck Exam Neck exam: Positive for: Normal Inspection - Respiratory Exam Respiratory Exam: Decreased Breath Sounds, NORMAL BREATHING PATTERN - Cardiovascular Exam Cardiovascular Exam: REGULAR RHYTHM, +S1, +S2 - GI/Abdominal Exam GI & Abdominal Exam: Normal Bowel Sounds, Soft - Extremities Exam Additional comments: left side weakness - Neurological Exam Neurological exam: Alert Additional comments: oriented to place and self - Skin Skin Exam: Dry, Pallor - Additional Findings Additional findings: Palliative performance scale raing 30% Results - Vital Signs Recent Vital Signs: Last Vital Signs Temp 98.6 F 10/24/16 06:00 Pulse 96 H 10/24/16 06:00 Resp 20 10/24/16 06:00 BP 150/68 10/24/16 06:00 Pulse Ox 97 10/24/16 06:00 - Labs Result Diagrams: 10/24/16 07:30 10/24/16 07:30 Labs: Laboratory Results - last 24 hr 10/22/16 10/24/16 09:22 07:30 WBC 10.0 RBC 3.20 L Hgb 9.2 L Hct 27.1 L MCV 84.7 MCH 28.8 MCHC 33.9 RDW 15.2 H Plt Count 223 MPV 9.9 Gran % 85.2 H Lymph % (Auto) 7.6 L [place] % (Auto) 7.1 H Eos % (Auto) 0.0 L Baso % (Auto) 0.1 Gran # 8.53 H Lymph # 0.8 L [place] # 0.7 H Eos # 0.0 Baso # 0.01 Sodium 148 Chloride 112 H Carbon Dioxide 23 Anion Gap 16 BUN 22 H Creatinine 0.6 Est GFR ( Amer) > 60 Est GFR (Non-Af Amer) > 60 Random Glucose 142 H Hemoglobin A1c 5.9 Calcium 7.7 L Total Bilirubin 1.1 AST 37 ALT 19 Alkaline Phosphatase 68 Total Protein 6.9 Albumin 3.3 Globulin 3.6 Albumin/Globulin Ratio 0.9 L Assessment & Plan - Assessment and Plan (Free Text) Assessment: 86 year old female admitted with right hip fracture after a mechanical fall at home. Sje is s/p rihgt ORIF. She has since suffered a right parietal infarct resulting in left sided weakness. The patient is lethargic, easily rousable , mild expressive aphasia, she able to engages in minimal conversation. She denies pain.She is on modified pureed diet. Daughter and son at bedside. Family understands the extent of patient's illness and is aware her condition may continue to decline.Daughter produced copy of health care proxy. Daughter states patient want to be DNR/DNI. Daughter also states patient does not want feeding tube if unable to eat on her own. I also spoke with patient in her families presence. Patient herself able to comprehend question regarding CPR , mechanical ventilation and feeding tube. Patient states she does not want these interventions. Purpose of POLST explained, questions answered. Family amenable to initiating POLST before discharge. In the interim family requests she be made DNR/DNI now, Time spent with patient and family in discussion of goals of care,resuscitation wishes and advance care planning, 40 minutes. Plan: DNR/DNI. Continue current medical management. Will assist patient/family in establishing future goals of care - Date & Time Date: 10/23/16 Time: 15:30
[2016-10-24] MEDS: Pantoprazole 40 mg EC Tab PO SCH (09:13)
[2016-10-24] MEDS: Enoxaparin 30 mg Syringe SC SCH (09:13)
[2016-10-24] MEDS: Potassium & Sodium Phosphate PO SCH ×3 (09:13→17:21)
[2016-10-24 09:41] LABS: POTASSIUM 2.6 mmol/L (3.6-5.0)
[2016-10-24 09:46] LABS: IRON 19 ug/dL (45-180)
[2016-10-24] MEDS: Sodium Chloride 0.9% 1,000 ML IV SCH ×2 (11:18→19:19)
[2016-10-24] MEDS: Vancomycin 1gm in NS 250ml 250 ML IVPB SCH ×2 (11:19→22:18)
[2016-10-24 13:49] LABS: FOLATE > 20.0 ng/mL
--- NOTE | 2016-10-24 13:54 | CP.PCM.PN ---
<Erwin Tijerina - Last Filed: 10/24/16 14:35> Subjective - Date & Time of Evaluation Date of Evaluation: 10/24/16 Time of Evaluation: 09:27 - Subjective Subjective: Pt seen and examined. Pt still very lethargic. Pt AAOx3. Pt reports that she is not in pain. She denies fever, chills, chest pain, shortness of breath, nausea. Objective - Vital Signs/Intake and Output Vital Signs (last 24 hours): Temp Pulse Resp BP Pulse Ox 98 F 84 18 153/74 H 97 10/24/16 12:00 10/24/16 12:00 10/24/16 12:00 10/24/16 12:00 10/24/16 06:00 Intake and Output: 10/24/16 10/24/16 06:59 18:59 Intake Total 1935 Output Total 0 Balance 1935 - Medications Medications: Current Medications Acetaminophen (Tylenol 325mg Tab) 650 mg PO Q6 PRN PRN Reason: Fever >100.4 F Last Admin: 10/22/16 12:19 Dose: 650 mg Acetaminophen (Tylenol 650 Mg Supp) 650 mg RC Q6H PRN PRN Reason: Fever >100.4 F Last Admin: 10/23/16 21:37 Dose: 650 mg Amlodipine Besylate (Norvasc) 10 mg PO DAILY [facility] Last Admin: 10/22/16 09:17 Dose: Not Given Aspirin (Ecotrin) 81 mg PO DAILY [facility] Last Admin: 10/24/16 09:13 Dose: 81 mg Atorvastatin Calcium (Lipitor) 20 mg PO DIN [facility] Calcium/Vitamin D (Oscal-D 250 Mg-125 Units Tab) 2 tab PO DAILY [facility] Last Admin: 10/22/16 09:17 Dose: Not Given Calcium/Vitamin D (Oscal-D 250 Mg-125 Units Tab) 3 tab PO DAILY [facility] Last Admin: 10/22/16 09:17 Dose: Not Given Clonazepam (Klonopin) 0.5 mg PO .AM [facility] PRN Reason: Protocol Last Admin: 10/21/16 09:40 Dose: 0.5 mg Clonazepam (Klonopin) 1 mg PO HS [facility] PRN Reason: Protocol Last Admin: 10/20/16 21:36 Dose: 1 mg Docusate Sodium (Colace) 100 mg PO BID [facility] Last Admin: 10/22/16 09:16 Dose: Not Given Duloxetine HCl (Cymbalta) 30 mg PO DAILY [facility] Last Admin: 10/22/16 09:17 Dose: Not Given Enoxaparin Sodium (Lovenox) 30 mg SC DAILY [facility] PRN Reason: Protocol Last Admin: 10/24/16 09:13 Dose: 30 mg Gabapentin (Neurontin) 100 mg PO BID [facility] PRN Reason: Protocol Last Admin: 10/22/16 09:17 Dose: Not Given Sodium Chloride (Sodium Chloride 0.9%) 1,000 mls @ 125 mls/hr IV .Q8H [facility] Last Admin: 10/24/16 11:18 Dose: 125 mls/hr Meropenem 1 gm/ Sodium (Chloride) 100 mls @ 100 mls/hr IVPB Q8 [facility] PRN Reason: Protocol Stop: 10/30/16 10:29 Last Admin: 10/24/16 05:09 Dose: 100 mls/hr Vancomycin HCl (Vancomycin 1gm) 250 mls @ 167 mls/hr IVPB Q12H [facility] PRN Reason: Protocol Last Admin: 10/24/16 11:19 Dose: 167 mls/hr Potassium Chloride (Potassium Chloride 10 Meq/100 Ml) 100 mls @ 100 mls/hr IVPB Q2H [facility] Stop: 10/24/16 19:29 Iron Sucrose 100 mg/ Sodium (Chloride) 105 mls @ 210 mls/hr IVPB DAILY [facility] Stop: 10/28/16 10:29 Morphine Sulfate (Morphine) 2 mg IVP Q4H PRN PRN Reason: Pain, moderate (4-7) Last Admin: 10/22/16 18:02 Dose: 2 mg Multivitamins (Thera Tab) 1 tab PO DAILY [facility] Last Admin: 10/22/16 09:18 Dose: Not Given Ondansetron HCl (Zofran Inj) 4 mg IVP Q6 PRN PRN Reason: Nausea/Vomiting Oxycodone/Acetaminophen (Percocet 5/325 Mg Tab) 1 tab PO Q6H PRN PRN Reason: Pain, severe (8-10) Stop: 10/25/16 09:32 Pantoprazole Sodium (Protonix Ec Tab) 40 mg PO DAILY [facility] Last Admin: 10/24/16 09:13 Dose: 40 mg Potassium Phos/Sodium Phos (Neutra-Phos) 1 pkt PO TID [facility] Last Admin: 10/24/16 09:13 Dose: 1 pkt Pregabalin (Lyrica) 50 mg PO TID [facility] Last Admin: 10/22/16 12:59 Dose: Not Given - Labs Labs: 10/24/16 07:30 10/24/16 07:30 PT 11.1 Seconds (9.9-11.8) 10/21/16 06:30 INR 1.03 (0.93-1.08) 10/21/16 06:30 APTT 28.1 Seconds (23.7-30.8) 10/21/16 06:30 - Constitutional Appears: Toxic, No Acute Distress - Head Exam Head Exam: ATRAUMATIC, NORMOCEPHALIC - Eye Exam Eye Exam: absent: EOMI, PERRL - ENT Exam ENT Exam: Mucous Membranes Dry. absent: Mucous Membranes Moist - Respiratory Exam Respiratory Exam: Clear to Ausculation Bilateral. absent: Rales, Rhonchi, Wheezes - GI/Abdominal Exam GI & Abdominal Exam: Soft, Normal Bowel Sounds. absent: Distended, Tenderness - Extremities Exam Extremities Exam: absent: Pedal Edema - Neurological Exam Neurological Exam: Alert, Awake, Motor Sensory Deficit, Oriented x3. absent: CN II-XII Intact Neuro motor strength exam: Left Upper Extremity: 0, Right Upper Extremity: 3, Left Lower Extremity: 2/1, Right Lower Extremity: 2/1 Additional comments: Pt unable to move left upper extremity. Pt does not fully open her eyes. Pupils sluggish. - Skin Skin Exam: Normal Color, Warm Assessment and Plan - Assessment and Plan (Free Text) Assessment: Acute Ischemic Stroke Head CT (10/22) - acute nonhemorrhagic infarct high right parietal region Neurology, Dr. Irena Bojorquez, consulted. Help appreciated. Main SBP between 130-140 CT angio of head negative (please see full report) Carotid and vertebral artery duplex u/s - bilateral 20-39& b/l proximal ICA stenoses (please see full report) MRI and MRA contraindicated due to metal object in hips HgbA1c 5.9 Pt on pureed diet and honey thick liquids, as per dietitian recs Pt on aspirin 81 mg po qd Discussed with daughter and Gregoria Hennessye plans for follow up care after pt is stable for discharge Hypokalemia: K+ 2.6 4 k-riders Anemia: H/H: 9.2.27.1 Iron, TIBC low IV iron Fever: Tmax 101 ID, Dr. Guzman, consulted. Help appreciated. CXR - no active disease procalcitonin 1.41 blood cultures negative after 48 hours urine cultures negative Repeat cultures ordered, repeat CXR Maxipime 1 gm q24h Vancomycin 1 gm Hip/Pelvis X-Ray- no gas in soft tissue, no evidence of infection (please see full report) Femur X-Ray - unremarkable (please see full report) Right hip fracture Pt day 1 s/p right hip ORIF with intramedullary dorina; Hip/Pelvis X-Ray - Displaced comminuted intertrochanteric fracture of the right hip (please see full report) Orthopedic surgeon, Dr. Villalta, consulted. Help appreciated. Cardiology, Dr. Lang, consulted, for cardiac clearance. EKG - no changes from previous EKG CXR - no active disease Most recent echocardiogram, 05/23/16, revealed EF of 59.3% HTN Norvasc 10 mg po qd Peripheral neuropathy Neurontin Lyrica History of depression Cymbalta Klonopin Prophylactic Measures SCDs Protonix Multivitamins Calcium Colace for constipation Zofran for nausea <Nevaeh Baugh - Last Filed: 10/26/16 17:14> Objective - Vital Signs/Intake and Output Vital Signs (last 24 hours): Temp Pulse Resp BP Pulse Ox 98.7 F 77 18 166/89 H 99 10/26/16 12:00 10/26/16 12:00 10/26/16 12:00 10/26/16 12:00 10/26/16 06:00 Intake and Output: 10/26/16 10/26/16 06:59 18:59 Intake Total 1870 Balance 1870 - Medications Medications: Current Medications Acetaminophen (Tylenol 325mg Tab) 650 mg PO Q6 PRN PRN Reason: Fever >100.4 F Last Admin: 10/22/16 12:19 Dose: 650 mg Acetaminophen (Tylenol 650 Mg Supp) 650 mg RC Q6H PRN PRN Reason: Fever >100.4 F Last Admin: 10/25/16 23:30 Dose: 650 mg Amlodipine Besylate (Norvasc) 10 mg PO DAILY [facility] Last Admin: 10/22/16 09:17 Dose: Not Given Aspirin (Ecotrin) 81 mg PO DAILY [facility] Last Admin: 10/26/16 09:34 Dose: 81 mg Atorvastatin Calcium (Lipitor) 20 mg PO DIN [facility] Last Admin: 10/25/16 17:21 Dose: 20 mg Calcium/Vitamin D (Oscal-D 250 Mg-125 Units Tab) 2 tab PO DAILY [facility] Last Admin: 10/22/16 09:17 Dose: Not Given Calcium/Vitamin D (Oscal-D 250 Mg-125 Units Tab) 3 tab PO DAILY [facility] Last Admin: 10/22/16 09:17 Dose: Not Given Clonazepam (Klonopin) 0.5 mg PO .AM [facility] PRN Reason: Protocol Last Admin: 10/21/16 09:40 Dose: 0.5 mg Clonazepam (Klonopin) 1 mg PO HS [facility] PRN Reason: Protocol Last Admin: 10/20/16 21:36 Dose: 1 mg Docusate Sodium (Colace) 100 mg PO BID [facility] Last Admin: 10/22/16 09:16 Dose: Not Given Duloxetine HCl (Cymbalta) 30 mg PO DAILY [facility] Last Admin: 10/22/16 09:17 Dose: Not Given Enoxaparin Sodium (Lovenox) 30 mg SC DAILY [facility] PRN Reason: Protocol Last Admin: 10/26/16 09:34 Dose: 30 mg Gabapentin (Neurontin) 100 mg PO BID [facility] PRN Reason: Protocol Last Admin: 10/22/16 09:17 Dose: Not Given Iron Sucrose 100 mg/ Sodium (Chloride) 105 mls @ 210 mls/hr IVPB DAILY [facility] Stop: 10/28/16 10:29 Last Admin: 10/26/16 12:09 Dose: 210 mls/hr Potassium Chloride 30 meq/ (Dextrose/Sodium Chloride) 1,015 mls @ 125 mls/hr IV .Q8H8M [facility] Last Admin: 10/26/16 12:10 Dose: 125 mls/hr Potassium Phosphate 15 mmole/ (Dextrose) 255 mls @ 42.5 mls/hr IVPB ONCE ONE Stop: 10/26/16 21:41 Megestrol Acetate (Megace) 400 mg PO DAILY [facility] Morphine Sulfate (Morphine) 2 mg IVP Q4H PRN PRN Reason: Pain, moderate (4-7) Last Admin: 10/22/16 18:02 Dose: 2 mg Multivitamins (Thera Tab) 1 tab PO DAILY [facility] Last Admin: 10/22/16 09:18 Dose: Not Given Ondansetron HCl (Zofran Inj) 4 mg IVP Q6 PRN PRN Reason: Nausea/Vomiting Pantoprazole Sodium (Protonix Ec Tab) 40 mg PO DAILY [facility] Last Admin: 10/26/16 09:34 Dose: 40 mg Potassium Phos/Sodium Phos (Neutra-Phos) 1 pkt PO TID [facility] Last Admin: 10/26/16 14:37 Dose: Not Given Pregabalin (Lyrica) 50 mg PO TID [facility] Last Admin: 10/22/16 12:59 Dose: Not Given - Labs Labs: 10/26/16 06:30 10/26/16 06:30 PT 11.1 Seconds (9.9-11.8) 10/21/16 06:30 INR 1.03 (0.93-1.08) 10/21/16 06:30 APTT 28.1 Seconds (23.7-30.8) 10/21/16 06:30 Attending/Attestation - Attestation I have personally seen and examined this patient.: Yes I have fully participated in the care of the patient.: Yes I have reviewed all pertinent clinical information, including history, physical exam and plan: Yes Notes (Text): I have seen and examined patient at bedside with the resident. Agree with the above note with the following additions/exceptions: This is 86 year old female with history of RLS, spinal stenosis, osteoarthritis, HTN, multiple falls who got admitted s/p mechanical fall and developed right hip fracture s/p ORIF on . During hospitalization, she was found to have acute non hemorrhagic infarct. Neuro consulted and recommended CT angio and carotid duplex which was reviewed. MR could not be done as she has a metal object post hip surgery. Swallow eval was done and they recommended puree diet with honey thick liquids. Continue Aspirin and lipitor. She also was given 2 units post hip surgery. Repeat Hb is stable. Patient more arousable as compare to yesterday. Daughter is at bedside. Patient was made DNR/DNI. She also developed SIRS with unknown source currently on vanco and meropenem. Xray of hip and femur was normal. Cultures are negative so far. Procal is 1.4. Dr Nevaeh Baugh
[2016-10-24] MEDS: Potassium Chloride 10 mEq 100 ML IVPB SCH ×4 (14:04→18:29)
--- NOTE | 2016-10-24 14:49 | RAD ---
HISTORY: rule out pneumonia COMPARISON: 10/22/2016 FINDINGS: LUNGS: No active pulmonary disease. PLEURA: No significant pleural effusion identified, no pneumothorax apparent. CARDIOVASCULAR: Normal. OSSEOUS STRUCTURES: No significant abnormalities. VISUALIZED UPPER ABDOMEN: Normal. OTHER FINDINGS: None. IMPRESSION: No active disease.
--- NOTE | 2016-10-24 15:15 | CP.PCM.PN ---
Subjective - Date & Time of Evaluation Date of Evaluation: 10/24/16 Time of Evaluation: 09:20 - Subjective Subjective: Patient still is lethargic, is a little more awake today and follows simple commands, but immediately goes back to sleep after arousal. Had fever yesterday afternoon. No diarrhea. Objective - Vital Signs/Intake and Output Vital Signs (last 24 hours): Temp Pulse Resp BP Pulse Ox 98.6 F 96 H 20 150/68 97 10/24/16 06:00 10/24/16 06:00 10/24/16 06:00 10/24/16 06:00 10/24/16 06:00 Intake and Output: 10/23/16 10/24/16 18:59 06:59 Intake Total 1935 Output Total 0 Balance 1935 - Medications Medications: Current Medications Acetaminophen (Tylenol 325mg Tab) 650 mg PO Q6 PRN PRN Reason: Fever >100.4 F Last Admin: 10/22/16 12:19 Dose: 650 mg Acetaminophen (Tylenol 650 Mg Supp) 650 mg RC Q6H PRN PRN Reason: Fever >100.4 F Last Admin: 10/23/16 21:37 Dose: 650 mg Amlodipine Besylate (Norvasc) 10 mg PO DAILY [facility] Last Admin: 10/22/16 09:17 Dose: Not Given Calcium/Vitamin D (Oscal-D 250 Mg-125 Units Tab) 2 tab PO DAILY [facility] Last Admin: 10/22/16 09:17 Dose: Not Given Calcium/Vitamin D (Oscal-D 250 Mg-125 Units Tab) 3 tab PO DAILY [facility] Last Admin: 10/22/16 09:17 Dose: Not Given Clonazepam (Klonopin) 0.5 mg PO .AM [facility] PRN Reason: Protocol Last Admin: 10/21/16 09:40 Dose: 0.5 mg Clonazepam (Klonopin) 1 mg PO HS [facility] PRN Reason: Protocol Last Admin: 10/20/16 21:36 Dose: 1 mg Docusate Sodium (Colace) 100 mg PO BID [facility] Last Admin: 10/22/16 09:16 Dose: Not Given Duloxetine HCl (Cymbalta) 30 mg PO DAILY [facility] Last Admin: 10/22/16 09:17 Dose: Not Given Enoxaparin Sodium (Lovenox) 30 mg SC DAILY [facility] PRN Reason: Protocol Last Admin: 10/23/16 09:36 Dose: 30 mg Gabapentin (Neurontin) 100 mg PO BID [facility] PRN Reason: Protocol Last Admin: 10/22/16 09:17 Dose: Not Given Sodium Chloride (Sodium Chloride 0.9%) 1,000 mls @ 125 mls/hr IV .Q8H [facility] Last Admin: 10/23/16 09:39 Dose: 125 mls/hr Meropenem 1 gm/ Sodium (Chloride) 100 mls @ 100 mls/hr IVPB Q8 [facility] PRN Reason: Protocol Stop: 10/30/16 10:29 Last Admin: 10/24/16 05:09 Dose: 100 mls/hr Vancomycin HCl (Vancomycin 1gm) 250 mls @ 167 mls/hr IVPB Q12H [facility] PRN Reason: Protocol Last Admin: 10/23/16 21:37 Dose: 167 mls/hr Morphine Sulfate (Morphine) 2 mg IVP Q4H PRN PRN Reason: Pain, moderate (4-7) Last Admin: 10/22/16 18:02 Dose: 2 mg Multivitamins (Thera Tab) 1 tab PO DAILY [facility] Last Admin: 10/22/16 09:18 Dose: Not Given Ondansetron HCl (Zofran Inj) 4 mg IVP Q6 PRN PRN Reason: Nausea/Vomiting Oxycodone/Acetaminophen (Percocet 5/325 Mg Tab) 1 tab PO Q6H PRN PRN Reason: Pain, severe (8-10) Stop: 10/25/16 09:32 Pantoprazole Sodium (Protonix Ec Tab) 40 mg PO DAILY [facility] Last Admin: 10/22/16 09:18 Dose: Not Given Pantoprazole Sodium (Protonix Inj) 40 mg IVP DAILY [facility] Last Admin: 10/23/16 11:13 Dose: 40 mg Potassium Phos/Sodium Phos (Neutra-Phos) 1 pkt PO TID [facility] Last Admin: 10/23/16 15:39 Dose: Not Given Pregabalin (Lyrica) 50 mg PO TID [facility] Last Admin: 10/22/16 12:59 Dose: Not Given - Labs Labs: 10/23/16 05:30 10/23/16 05:30 PT 11.1 Seconds (9.9-11.8) 10/21/16 06:30 INR 1.03 (0.93-1.08) 10/21/16 06:30 APTT 28.1 Seconds (23.7-30.8) 10/21/16 06:30 - Constitutional Appears: Other (still lethargic) - Head Exam Head Exam: NORMAL INSPECTION - Neck Exam Neck Exam: absent: Lymphadenopathy, Meningismus Additional comments: she however prefers to turn her head to the right side - Respiratory Exam Respiratory Exam: Decreased Breath Sounds - Cardiovascular Exam Cardiovascular Exam: +S1, +S2 - GI/Abdominal Exam GI & Abdominal Exam: Soft. absent: Tenderness Assessment and Plan - Assessment and Plan (Free Text) Plan: Assessment Systemic Inflammatory Response Syndrome, R/O sepsis source to be determined who is presenting with post-op fever (POD #4 S/P intramedullary pan placement for right hip fracture) - still with fever Acute encephalopathy in a patient with acute cerebral infarct, slowly improving HTN osteoarthritis anxiety depression history of chronic neck and lower back pain S/P left hip fracture and surgery S/P left shoulder fracture S/P appendectomy S/P hysterectomy Plan continue Vancomycin and Merrem (Day 2); blood cx, urine cx are negative so far; reviewed CXR which does not show infiltrates; PCT is elevated at 1.41 but may be elevated post-op; xray of the right hip area does not show acute pathology reviewed Neurology evaluation regarding encephalopathy; patient has no signs of meningismus and the fever is not sustained - if the patient continues to have fever and we have no identified source, will suggest MRI brain Will continue to follow clinically
[2016-10-25] MEDS: Meropenem 1 GM in Sodium Chloride 0.9% 100 ML IVPB SCH ×3 (06:10→22:29)
[2016-10-25 06:31] LABS: ADD MANUAL DIFF? NO
[2016-10-25 06:40] LABS: EOS % 0.2 % (1.5-5.0); GRAN # 6.53 (1.4-6.5); GRAN % 77.2 % (50.0-68.0); HEMATOCRIT 26.4 % (36.0-48.0); LYMPH # 1.2 (1.2-3.4); MEAN CELL VOLUME 85.7 fL (80.0-105.0); MEAN CORPUSCULAR HEMOGLOBIN 28.9 pg (25.0-35.0); MEAN CORPUSCULAR HGB CONC 33.7 g/dl (31.0-37.0); MEAN PLATELET VOLUME 9.7 fl (7.0-11.0); MONO # 0.7 (0.1-0.6); MONO % 8.6 % (1.0-6.0); PLATELET COUNT 234 10^3/uL (120.0-450.0); RED CELL DISTRIBUTION WIDTH 15.5 % (11.5-14.5); WHITE BLOOD COUNT 8.5 10^3/ul (4.5-11.0)
[2016-10-25 07:09] LABS: ALB/GLOB RATIO 0.9 (1.1-1.8); ALKALINE PHOSPHATASE 80 U/L (38-133); ALT/SGPT 21 U/L (7-56); AST/SGOT 39 U/L (15-39); BILIRUBIN,TOTAL 1.5 mg/dL (0.2-1.3); BLOOD UREA NITROGEN 21 mg/dL (7-21); CALCIUM 7.6 mg/dL (8.4-10.5); CARBON DIOXIDE 27 mmol/L (21-33); CHLORIDE 115 mmol/L (98-107); GFR AFRICAN-AMERICAN > 60; GLUCOSE,RANDOM 134 mg/dL (70-110); MAGNESIUM 2.1 mg/dL (1.7-2.2); SODIUM 150 mmol/L (132-148); TOTAL PROTEIN 6.5 g/dL (5.8-8.3)
[2016-10-25 07:19] LABS: POTASSIUM 2.6 mmol/L (3.6-5.0)
[2016-10-25] MEDS ORDERED: Potassium Chloride 20 mEq/15 ml LIQ UD PO ONE (08:00)
[2016-10-25] MEDS: Potassium Chloride 20 mEq 100 ML IVPB SCH ×2 (08:42→09:49)
[2016-10-25] MEDS ORDERED: Iohexol 350 MG/100 ML VIAL ONE (09:05)
[2016-10-25] MEDS: Pantoprazole 40 mg EC Tab PO SCH (09:48)
[2016-10-25] MEDS: Potassium & Sodium Phosphate PO SCH ×3 (09:48→17:21)
[2016-10-25] MEDS: Enoxaparin 30 mg Syringe SC SCH (09:49)
[2016-10-25] MEDS: Vancomycin 1gm in NS 250ml 250 ML IVPB SCH ×2 (11:12→23:30)
--- NOTE | 2016-10-25 12:10 | CP.PCM.PN ---
<Erwin Tijerina - Last Filed: 10/25/16 12:04> Subjective - Date & Time of Evaluation Date of Evaluation: 10/25/16 Time of Evaluation: 06:55 - Subjective Subjective: Pt seen and examined. Pt still looking lethargic, but a bit more alert than yesterday. Pt is not complaining of pain. Pt denies fever, chills, chest pain, shortness of breath, nausea, and vomiting. Objective - Vital Signs/Intake and Output Vital Signs (last 24 hours): Temp Pulse Resp BP Pulse Ox 97.5 F L 83 18 146/76 97 10/25/16 05:36 10/25/16 05:36 10/25/16 05:36 10/25/16 05:36 10/24/16 06:00 Intake and Output: 10/25/16 10/25/16 06:59 18:59 Intake Total 1180 Balance 1180 - Medications Medications: Current Medications Acetaminophen (Tylenol 325mg Tab) 650 mg PO Q6 PRN PRN Reason: Fever >100.4 F Last Admin: 10/22/16 12:19 Dose: 650 mg Acetaminophen (Tylenol 650 Mg Supp) 650 mg RC Q6H PRN PRN Reason: Fever >100.4 F Last Admin: 10/24/16 23:28 Dose: 650 mg Amlodipine Besylate (Norvasc) 10 mg PO DAILY [facility] Last Admin: 10/22/16 09:17 Dose: Not Given Aspirin (Ecotrin) 81 mg PO DAILY [facility] Last Admin: 10/25/16 09:48 Dose: 81 mg Atorvastatin Calcium (Lipitor) 20 mg PO DIN [facility] Last Admin: 10/24/16 17:21 Dose: 20 mg Calcium/Vitamin D (Oscal-D 250 Mg-125 Units Tab) 2 tab PO DAILY [facility] Last Admin: 10/22/16 09:17 Dose: Not Given Calcium/Vitamin D (Oscal-D 250 Mg-125 Units Tab) 3 tab PO DAILY [facility] Last Admin: 10/22/16 09:17 Dose: Not Given Clonazepam (Klonopin) 0.5 mg PO .AM [facility] PRN Reason: Protocol Last Admin: 10/21/16 09:40 Dose: 0.5 mg Clonazepam (Klonopin) 1 mg PO HS [facility] PRN Reason: Protocol Last Admin: 10/20/16 21:36 Dose: 1 mg Docusate Sodium (Colace) 100 mg PO BID [facility] Last Admin: 10/22/16 09:16 Dose: Not Given Duloxetine HCl (Cymbalta) 30 mg PO DAILY [facility] Last Admin: 10/22/16 09:17 Dose: Not Given Enoxaparin Sodium (Lovenox) 30 mg SC DAILY [facility] PRN Reason: Protocol Last Admin: 10/25/16 09:49 Dose: 30 mg Gabapentin (Neurontin) 100 mg PO BID [facility] PRN Reason: Protocol Last Admin: 10/22/16 09:17 Dose: Not Given Meropenem 1 gm/ Sodium (Chloride) 100 mls @ 100 mls/hr IVPB Q8 [facility] PRN Reason: Protocol Stop: 10/30/16 10:29 Last Admin: 10/25/16 06:10 Dose: 100 mls/hr Vancomycin HCl (Vancomycin 1gm) 250 mls @ 167 mls/hr IVPB Q12H [facility] PRN Reason: Protocol Last Admin: 10/25/16 11:12 Dose: 167 mls/hr Iron Sucrose 100 mg/ Sodium (Chloride) 105 mls @ 210 mls/hr IVPB DAILY [facility] Stop: 10/28/16 10:29 Last Admin: 10/25/16 11:12 Dose: 210 mls/hr Potassium Chloride 30 meq/ (Dextrose/Sodium Chloride) 1,015 mls @ 125 mls/hr IV .Q8H8M [facility] Morphine Sulfate (Morphine) 2 mg IVP Q4H PRN PRN Reason: Pain, moderate (4-7) Last Admin: 10/22/16 18:02 Dose: 2 mg Multivitamins (Thera Tab) 1 tab PO DAILY [facility] Last Admin: 10/22/16 09:18 Dose: Not Given Ondansetron HCl (Zofran Inj) 4 mg IVP Q6 PRN PRN Reason: Nausea/Vomiting Pantoprazole Sodium (Protonix Ec Tab) 40 mg PO DAILY [facility] Last Admin: 10/25/16 09:48 Dose: 40 mg Potassium Phos/Sodium Phos (Neutra-Phos) 1 pkt PO TID [facility] Last Admin: 10/25/16 09:48 Dose: 1 pkt Pregabalin (Lyrica) 50 mg PO TID [facility] Last Admin: 10/22/16 12:59 Dose: Not Given - Labs Labs: 03/17/17 06:00 10/25/16 06:00 PT 11.1 Seconds (9.9-11.8) 10/21/16 06:30 INR 1.03 (0.93-1.08) 10/21/16 06:30 APTT 28.1 Seconds (23.7-30.8) 10/21/16 06:30 - Constitutional Appears: Toxic, No Acute Distress - Head Exam Head Exam: ATRAUMATIC, NORMOCEPHALIC - Eye Exam Eye Exam: absent: EOMI Additional comments: Pupils sluggish - ENT Exam ENT Exam: Mucous Membranes Moist. absent: Mucous Membranes Dry - Respiratory Exam Respiratory Exam: Clear to Ausculation Bilateral. absent: Rales, Rhonchi, Wheezes - Cardiovascular Exam Cardiovascular Exam: +S1, +S2. absent: Gallop, Rubs - GI/Abdominal Exam GI & Abdominal Exam: Soft, Normal Bowel Sounds. absent: Tenderness - Extremities Exam Extremities Exam: Full ROM. absent: Pedal Edema - Neurological Exam Neurological Exam: Awake, Oriented x3 Additional comments: lethargic - Skin Skin Exam: Normal Color, Warm Assessment and Plan - Assessment and Plan (Free Text) Assessment: Acute Ischemic Stroke Head CT (10/22) - acute nonhemorrhagic infarct high right parietal region Neurology, Dr. Irena Bojorquez, consulted. Help appreciated. Main SBP between 130-140 CT angio of head negative (please see full report) Carotid and vertebral artery duplex u/s - bilateral 20-39& b/l proximal ICA stenoses (please see full report) MRI and MRA contraindicated due to metal object in hips HgbA1c 5.9 Pt on pureed diet and honey thick liquids, as per dietitian recs Pt on aspirin 81 mg po qd Discussed with daughter and Gregoria Paramonte plans for follow up care after pt is stable for discharge PT eval recommends subacute rehab upon discharge SIRS: Tmax 101.4 ID, Dr. Guzman, consulted. Help appreciated. Inital CXR - no active disease procalcitonin 1.41 blood cultures negative after 48 hours urine cultures negative Repeat cultures negative after 24 hours Repeat CXR - no active disease Merem 1 gm IV q8h Vancomycin 1 gm qd Hip/Pelvis X-Ray- no gas in soft tissue, no evidence of infection (please see full report) Femur X-Ray - unremarkable (please see full report) Chest/abd/pelvis CT pending Tylenol suppository prn for fever > 100.4 Follow up ID recs Hypokalemia: K+ 2.6 IV Potassium replacement Hypernatremia: Na+ 150 d/c NS IVF Start D51/2 NS 125 cc/hr Anemia: H/H:8.9/26.4 Iron, TIBC low IV iron Stool for occult blood pending Right hip fracture Pt day 3 s/p right hip ORIF with intramedullary nail Hip/Pelvis X-Ray - Displaced comminuted intertrochanteric fracture of the right hip (please see full report) Orthopedic surgeon, Dr. Villalta, consulted. Help appreciated. Cardiology, Dr. Lang, consulted, for cardiac clearance. EKG - no changes from previous EKG CXR - no active disease Most recent echocardiogram, 05/23/16, revealed EF of 59.3% HTN Norvasc 10 mg po qd on hold Peripheral neuropathy Neurontin on hold Lyrica on hold History of depression Cymbalta on hold Klonopin on hold Prophylactic Measures DVT: SCDs, Lovenox 30 mg sc qd GI: Protonix Multivitamins Calcium on hold Colace for constipation Zofran for nausea <Nevaeh Baugh - Last Filed: 10/26/16 17:20> Objective - Vital Signs/Intake and Output Vital Signs (last 24 hours): Temp Pulse Resp BP Pulse Ox 98.7 F 77 18 166/89 H 99 10/26/16 12:00 10/26/16 12:00 10/26/16 12:00 10/26/16 12:00 10/26/16 06:00 Intake and Output: 10/26/16 10/26/16 06:59 18:59 Intake Total 1870 Balance 1870 - Medications Medications: Current Medications Acetaminophen (Tylenol 325mg Tab) 650 mg PO Q6 PRN PRN Reason: Fever >100.4 F Last Admin: 10/22/16 12:19 Dose: 650 mg Acetaminophen (Tylenol 650 Mg Supp) 650 mg RC Q6H PRN PRN Reason: Fever >100.4 F Last Admin: 10/25/16 23:30 Dose: 650 mg Amlodipine Besylate (Norvasc) 10 mg PO DAILY [facility] Last Admin: 10/22/16 09:17 Dose: Not Given Aspirin (Ecotrin) 81 mg PO DAILY [facility] Last Admin: 10/26/16 09:34 Dose: 81 mg Atorvastatin Calcium (Lipitor) 20 mg PO DIN [facility] Last Admin: 10/25/16 17:21 Dose: 20 mg Calcium/Vitamin D (Oscal-D 250 Mg-125 Units Tab) 2 tab PO DAILY [facility] Last Admin: 10/22/16 09:17 Dose: Not Given Calcium/Vitamin D (Oscal-D 250 Mg-125 Units Tab) 3 tab PO DAILY [facility] Last Admin: 10/22/16 09:17 Dose: Not Given Clonazepam (Klonopin) 0.5 mg PO .AM [facility] PRN Reason: Protocol Last Admin: 10/21/16 09:40 Dose: 0.5 mg Clonazepam (Klonopin) 1 mg PO HS [facility] PRN Reason: Protocol Last Admin: 10/20/16 21:36 Dose: 1 mg Docusate Sodium (Colace) 100 mg PO BID [facility] Last Admin: 10/22/16 09:16 Dose: Not Given Duloxetine HCl (Cymbalta) 30 mg PO DAILY [facility] Last Admin: 10/22/16 09:17 Dose: Not Given Enoxaparin Sodium (Lovenox) 30 mg SC DAILY [facility] PRN Reason: Protocol Last Admin: 10/26/16 09:34 Dose: 30 mg Gabapentin (Neurontin) 100 mg PO BID [facility] PRN Reason: Protocol Last Admin: 10/22/16 09:17 Dose: Not Given Iron Sucrose 100 mg/ Sodium (Chloride) 105 mls @ 210 mls/hr IVPB DAILY [facility] Stop: 10/28/16 10:29 Last Admin: 10/26/16 12:09 Dose: 210 mls/hr Potassium Chloride 30 meq/ (Dextrose/Sodium Chloride) 1,015 mls @ 125 mls/hr IV .Q8H8M [facility] Last Admin: 10/26/16 12:10 Dose: 125 mls/hr Potassium Phosphate 15 mmole/ (Dextrose) 255 mls @ 42.5 mls/hr IVPB ONCE ONE Stop: 10/26/16 21:41 Megestrol Acetate (Megace) 400 mg PO DAILY [facility] Morphine Sulfate (Morphine) 2 mg IVP Q4H PRN PRN Reason: Pain, moderate (4-7) Last Admin: 10/22/16 18:02 Dose: 2 mg Multivitamins (Thera Tab) 1 tab PO DAILY [facility] Last Admin: 10/22/16 09:18 Dose: Not Given Ondansetron HCl (Zofran Inj) 4 mg IVP Q6 PRN PRN Reason: Nausea/Vomiting Pantoprazole Sodium (Protonix Ec Tab) 40 mg PO DAILY [facility] Last Admin: 10/26/16 09:34 Dose: 40 mg Potassium Phos/Sodium Phos (Neutra-Phos) 1 pkt PO TID [facility] Last Admin: 10/26/16 14:37 Dose: Not Given Pregabalin (Lyrica) 50 mg PO TID [facility] Last Admin: 10/22/16 12:59 Dose: Not Given - Labs Labs: 10/26/16 06:30 10/26/16 06:30 PT 11.1 Seconds (9.9-11.8) 10/21/16 06:30 INR 1.03 (0.93-1.08) 10/21/16 06:30 APTT 28.1 Seconds (23.7-30.8) 10/21/16 06:30 Attending/Attestation - Attestation I have personally seen and examined this patient.: Yes I have fully participated in the care of the patient.: Yes I have reviewed all pertinent clinical information, including history, physical exam and plan: Yes Notes (Text): I have seen and examined patient at bedside with the resident. Agree with the above note with the following additions/exceptions: This is 86 year old female with history of RLS, spinal stenosis, osteoarthritis, HTN, multiple falls who got admitted s/p mechanical fall and developed right hip fracture s/p ORIF on . During hospitalization, she was found to have acute non hemorrhagic infarct. Neuro consulted and recommended CT angio and carotid duplex which was reviewed. MR could not be done as she has a metal object post hip surgery. Swallow eval was done and they recommended puree diet with honey thick liquids. Continue Aspirin and lipitor. She also was given 2 units post hip surgery. Repeat Hb is stable. Patient more arousable as compare to yesterday. Daughter is at bedside. Patient was made DNR/DNI. She also developed SIRS with unknown source currently on vanco and meropenem. Xray of hip and femur was normal. Cultures are negative so far. Procal is 1.4. PT recommended [facility]. Dr Nevaeh Baugh
[2016-10-25] MEDS: Potassium Chloride 30 MEQ in Dextrose 5%/0.45% NS 1,000 ML IV SCH (13:10)
--- NOTE | 2016-10-25 13:50 | CP.PCM.PN ---
Subjective - Date & Time of Evaluation Date of Evaluation: 10/25/16 Time of Evaluation: 13:45 - Subjective Subjective: ortho dressing change Pt seen lying in bed with family members at bedside. Pt in no acute distress, awake but lethargic Objective - Vital Signs/Intake and Output Vital Signs (last 24 hours): Temp Pulse Resp BP Pulse Ox 97 F L 108 H 18 148/69 97 10/25/16 12:00 10/25/16 12:00 10/25/16 12:00 10/25/16 12:00 10/24/16 06:00 Intake and Output: 10/25/16 10/25/16 06:59 18:59 Intake Total 1180 Balance 1180 - Medications Medications: Current Medications Acetaminophen (Tylenol 325mg Tab) 650 mg PO Q6 PRN PRN Reason: Fever >100.4 F Last Admin: 10/22/16 12:19 Dose: 650 mg Acetaminophen (Tylenol 650 Mg Supp) 650 mg RC Q6H PRN PRN Reason: Fever >100.4 F Last Admin: 10/24/16 23:28 Dose: 650 mg Amlodipine Besylate (Norvasc) 10 mg PO DAILY [facility] Last Admin: 10/22/16 09:17 Dose: Not Given Aspirin (Ecotrin) 81 mg PO DAILY [facility] Last Admin: 10/25/16 09:48 Dose: 81 mg Atorvastatin Calcium (Lipitor) 20 mg PO DIN [facility] Last Admin: 10/24/16 17:21 Dose: 20 mg Calcium/Vitamin D (Oscal-D 250 Mg-125 Units Tab) 2 tab PO DAILY [facility] Last Admin: 10/22/16 09:17 Dose: Not Given Calcium/Vitamin D (Oscal-D 250 Mg-125 Units Tab) 3 tab PO DAILY [facility] Last Admin: 10/22/16 09:17 Dose: Not Given Clonazepam (Klonopin) 0.5 mg PO .AM [facility] PRN Reason: Protocol Last Admin: 10/21/16 09:40 Dose: 0.5 mg Clonazepam (Klonopin) 1 mg PO HS [facility] PRN Reason: Protocol Last Admin: 10/20/16 21:36 Dose: 1 mg Docusate Sodium (Colace) 100 mg PO BID [facility] Last Admin: 10/22/16 09:16 Dose: Not Given Duloxetine HCl (Cymbalta) 30 mg PO DAILY [facility] Last Admin: 10/22/16 09:17 Dose: Not Given Enoxaparin Sodium (Lovenox) 30 mg SC DAILY [facility] PRN Reason: Protocol Last Admin: 10/25/16 09:49 Dose: 30 mg Gabapentin (Neurontin) 100 mg PO BID [facility] PRN Reason: Protocol Last Admin: 10/22/16 09:17 Dose: Not Given Meropenem 1 gm/ Sodium (Chloride) 100 mls @ 100 mls/hr IVPB Q8 [facility] PRN Reason: Protocol Stop: 10/30/16 10:29 Last Admin: 10/25/16 13:10 Dose: 100 mls/hr Vancomycin HCl (Vancomycin 1gm) 250 mls @ 167 mls/hr IVPB Q12H [facility] PRN Reason: Protocol Last Admin: 10/25/16 11:12 Dose: 167 mls/hr Iron Sucrose 100 mg/ Sodium (Chloride) 105 mls @ 210 mls/hr IVPB DAILY [facility] Stop: 10/28/16 10:29 Last Admin: 10/25/16 11:12 Dose: 210 mls/hr Potassium Chloride 30 meq/ (Dextrose/Sodium Chloride) 1,015 mls @ 125 mls/hr IV .Q8H8M [facility] Last Admin: 10/25/16 13:10 Dose: 125 mls/hr Morphine Sulfate (Morphine) 2 mg IVP Q4H PRN PRN Reason: Pain, moderate (4-7) Last Admin: 10/22/16 18:02 Dose: 2 mg Multivitamins (Thera Tab) 1 tab PO DAILY [facility] Last Admin: 10/22/16 09:18 Dose: Not Given Ondansetron HCl (Zofran Inj) 4 mg IVP Q6 PRN PRN Reason: Nausea/Vomiting Pantoprazole Sodium (Protonix Ec Tab) 40 mg PO DAILY [facility] Last Admin: 10/25/16 09:48 Dose: 40 mg Potassium Phos/Sodium Phos (Neutra-Phos) 1 pkt PO TID [facility] Last Admin: 10/25/16 13:09 Dose: 1 pkt Pregabalin (Lyrica) 50 mg PO TID [facility] Last Admin: 10/22/16 12:59 Dose: Not Given - Labs Labs: 10/25/16 06:00 10/25/16 06:00 PT 11.1 Seconds (9.9-11.8) 10/21/16 06:30 INR 1.03 (0.93-1.08) 10/21/16 06:30 APTT 28.1 Seconds (23.7-30.8) 10/21/16 06:30 - Constitutional Appears: Older Than Stated Age, Chronically Ill - Eye Exam Eye Exam: EOMI, Normal appearance - ENT Exam ENT Exam: Mucous Membranes Moist - Neck Exam Neck Exam: Normal Inspection - Respiratory Exam Respiratory Exam: NORMAL BREATHING PATTERN - Cardiovascular Exam Cardiovascular Exam: +S1, +S2 - GI/Abdominal Exam GI & Abdominal Exam: Normal Bowel Sounds - Rectal Exam Rectal Exam: Deferred - Extremities Exam Extremities Exam: Normal Capillary Refill - Neurological Exam Neurological Exam: Awake Neuro motor strength exam: Left Upper Extremity: 2/1, Right Upper Extremity: 4, Left Lower Extremity: 4, Right Lower Extremity: 4 - Psychiatric Exam Psychiatric exam: Flat Affect - Skin Skin Exam: Dry, Intact, Normal Color (right hip incisions intact with zach, no redness, no odor, no drainage ), Warm - Additional Findings Additional findings: left upper arm weakness but pt able to move both lower ext and wiggle toes when asked Assessment and Plan - Assessment and Plan (Free Text) Assessment: 86 year old female who sustained mechanical fall and is post op day #4 for Right ORIF after clinical and radiographic exams were consistent with right hip communited intertrochanteric fx. A/P 1.right hip fx s/p right ORIF - hip incision clean and dry with no odor, drainage, continue progressive p.t with wbat, continue lovenox zach to be removed day #14 postoperatively Dc planning for rehab as per social work 2. Non Hemorrhagic cva- lethargic but more easily arousable as per Neuro/medical team 3. SIRS - as per ID - fever yesterday/ workup in progress, ct abdomen pelvis pending results Discussed with Dr Villalta in rounds, will continue to follow Jacki Aguila, DNP, [employer]
--- NOTE | 2016-10-25 13:54 | CP.PCM.PN ---
Subjective - Date & Time of Evaluation Date of Evaluation: 10/25/16 Time of Evaluation: 09:35 - Subjective Subjective: Patient is still somewhat lethargic, had one episode of fever yesterday, but a little more awake today compared to previous days. Objective - Vital Signs/Intake and Output Vital Signs (last 24 hours): Temp Pulse Resp BP Pulse Ox 97.5 F L 83 18 146/76 97 10/25/16 05:36 10/25/16 05:36 10/25/16 05:36 10/25/16 05:36 10/24/16 06:00 Intake and Output: 10/25/16 10/25/16 06:59 18:59 Intake Total 1180 Balance 1180 - Medications Medications: Current Medications Acetaminophen (Tylenol 325mg Tab) 650 mg PO Q6 PRN PRN Reason: Fever >100.4 F Last Admin: 10/22/16 12:19 Dose: 650 mg Acetaminophen (Tylenol 650 Mg Supp) 650 mg RC Q6H PRN PRN Reason: Fever >100.4 F Last Admin: 10/24/16 23:28 Dose: 650 mg Amlodipine Besylate (Norvasc) 10 mg PO DAILY [facility] Last Admin: 10/22/16 09:17 Dose: Not Given Aspirin (Ecotrin) 81 mg PO DAILY [facility] Last Admin: 10/24/16 09:13 Dose: 81 mg Atorvastatin Calcium (Lipitor) 20 mg PO DIN [facility] Last Admin: 10/24/16 17:21 Dose: 20 mg Calcium/Vitamin D (Oscal-D 250 Mg-125 Units Tab) 2 tab PO DAILY [facility] Last Admin: 10/22/16 09:17 Dose: Not Given Calcium/Vitamin D (Oscal-D 250 Mg-125 Units Tab) 3 tab PO DAILY [facility] Last Admin: 10/22/16 09:17 Dose: Not Given Clonazepam (Klonopin) 0.5 mg PO .AM [facility] PRN Reason: Protocol Last Admin: 10/21/16 09:40 Dose: 0.5 mg Clonazepam (Klonopin) 1 mg PO HS [facility] PRN Reason: Protocol Last Admin: 10/20/16 21:36 Dose: 1 mg Docusate Sodium (Colace) 100 mg PO BID [facility] Last Admin: 10/22/16 09:16 Dose: Not Given Duloxetine HCl (Cymbalta) 30 mg PO DAILY [facility] Last Admin: 10/22/16 09:17 Dose: Not Given Enoxaparin Sodium (Lovenox) 30 mg SC DAILY [facility] PRN Reason: Protocol Last Admin: 10/24/16 09:13 Dose: 30 mg Gabapentin (Neurontin) 100 mg PO BID [facility] PRN Reason: Protocol Last Admin: 10/22/16 09:17 Dose: Not Given Meropenem 1 gm/ Sodium (Chloride) 100 mls @ 100 mls/hr IVPB Q8 [facility] PRN Reason: Protocol Stop: 10/30/16 10:29 Last Admin: 10/25/16 06:10 Dose: 100 mls/hr Vancomycin HCl (Vancomycin 1gm) 250 mls @ 167 mls/hr IVPB Q12H [facility] PRN Reason: Protocol Last Admin: 10/24/16 22:18 Dose: 167 mls/hr Iron Sucrose 100 mg/ Sodium (Chloride) 105 mls @ 210 mls/hr IVPB DAILY [facility] Stop: 10/28/16 10:29 Potassium Chloride 20 meq/ (Sodium Chloride) 1,010 mls @ 125 mls/hr IV .Q8H5M [facility] Potassium Chloride (Potassium Chloride 20 Meq/100 Ml) 100 mls @ 50 mls/hr IVPB Q2H [facility] Stop: 10/25/16 11:59 Last Admin: 10/25/16 08:42 Dose: 50 mls/hr Morphine Sulfate (Morphine) 2 mg IVP Q4H PRN PRN Reason: Pain, moderate (4-7) Last Admin: 10/22/16 18:02 Dose: 2 mg Multivitamins (Thera Tab) 1 tab PO DAILY [facility] Last Admin: 10/22/16 09:18 Dose: Not Given Ondansetron HCl (Zofran Inj) 4 mg IVP Q6 PRN PRN Reason: Nausea/Vomiting Oxycodone/Acetaminophen (Percocet 5/325 Mg Tab) 1 tab PO Q6H PRN PRN Reason: Pain, severe (8-10) Stop: 10/25/16 09:32 Pantoprazole Sodium (Protonix Ec Tab) 40 mg PO DAILY [facility] Last Admin: 10/24/16 09:13 Dose: 40 mg Potassium Phos/Sodium Phos (Neutra-Phos) 1 pkt PO TID [facility] Last Admin: 03/16/17 17:21 Dose: 1 pkt Pregabalin (Lyrica) 50 mg PO TID [facility] Last Admin: 10/22/16 12:59 Dose: Not Given - Labs Labs: 10/25/16 06:00 10/25/16 06:00 PT 11.1 Seconds (9.9-11.8) 10/21/16 06:30 INR 1.03 (0.93-1.08) 10/21/16 06:30 APTT 28.1 Seconds (23.7-30.8) 10/21/16 06:30 - Constitutional Appears: Other (somewhat lethargic) - Head Exam Head Exam: NORMAL INSPECTION - Neck Exam Neck Exam: absent: Lymphadenopathy, Meningismus - Respiratory Exam Respiratory Exam: Decreased Breath Sounds - Cardiovascular Exam Cardiovascular Exam: +S1, +S2 - GI/Abdominal Exam GI & Abdominal Exam: Soft. absent: Tenderness - Neurological Exam Neuro motor strength exam: Left Upper Extremity: 2/1, Right Upper Extremity: 4 Assessment and Plan - Assessment and Plan (Free Text) Plan: Assessment Systemic Inflammatory Response Syndrome, R/O sepsis source to be determined who is presenting with post-op fever (POD #5 S/P intramedullary pan placement for right hip fracture) - still with intermittent fever Acute encephalopathy in a patient with acute cerebral infarct, slowly improving HTN osteoarthritis anxiety depression history of chronic neck and lower back pain S/P left hip fracture and surgery S/P left shoulder fracture S/P appendectomy S/P hysterectomy Plan continue Vancomycin and Merrem (Day 3); blood cx repeated yesterday - follow up results; initial blood and urine cx are negative so far; reviewed CXR which does not show infiltrates; PCT is elevated at 1.41 but may be elevated post-op; xray of the right hip area does not show acute pathology reviewed Neurology evaluation regarding encephalopathy; patient has no signs of meningismus and the fever is not sustained - suggest MRI brain (if feasible with the prosthetic hip on the right) For CT chest, abdomen and pelvis and will follow up results Will continue to follow clinically
--- NOTE | 2016-10-25 14:05 | CT ---
PROCEDURE: CT Chest, Abdomen and Pelvis with intravenous contrast HISTORY: rule out pneumonia, right hip hematoma COMPARISON: 07/23/2015 TECHNIQUE: IV dose administered: 100 cc of Omni 350 Radiation dose: Total exam DLP = 1142 mGy-cm. FINDINGS: CT CHEST WITH CONTRAST: LUNGS: Clear. No nodule, mass or consolidation. MEDIASTINUM: Unremarkable. Normal caliber aorta and pulmonary arterial trunk. No aortic dissection. Normal size heart. LYMPH NODES: Unremarkable. PLEURA: Unremarkable. No pneumothorax. No pleural fluid. BONES: Unremarkable. OTHER FINDINGS: Coronary artery calcifications are seen CT ABDOMEN AND PELVIS: LIVER: Unremarkable. No gross lesion or ductal dilatation. GALLBLADDER AND BILE DUCTS: Unremarkable. PANCREAS: Unremarkable. No gross lesion or ductal dilatation. SPLEEN: Unremarkable. ADRENALS: Unremarkable. No mass. KIDNEYS AND URETERS: Unremarkable. No hydronephrosis. No solid mass. VASCULATURE: Unremarkable. No aortic aneurysm. BOWEL: Unremarkable. No obstruction. No gross mural thickening. APPENDIX: Normal appendix. PERITONEUM: Unremarkable. No free fluid. No free air. LYMPH NODES: Unremarkable. No enlarged lymph nodes. BLADDER: Unremarkable. REPRODUCTIVE: Unremarkable. BONES: Multiple chronic compression fractures OTHER FINDINGS: None. IMPRESSION: No acute findings
[2016-10-26] MEDS: Potassium Chloride 30 MEQ in Dextrose 5%/0.45% NS 1,000 ML IV SCH ×3 (02:18→12:10)
[2016-10-26] MEDS: Meropenem 1 GM in Sodium Chloride 0.9% 100 ML IVPB SCH (05:42)
[2016-10-26 07:09] LABS: ADD MANUAL DIFF? NO
[2016-10-26 07:19] LABS: BASO # 0.01 K/mm3 (0.0-2.0); BASO % 0.2 % (0.0-3.0); EOS # 0.1 (0.0-0.7); EOS % 1.1 % (1.5-5.0); GRAN # 4.66 (1.4-6.5); LYMPH # 1.2 (1.2-3.4); LYMPH % 17.9 % (22.0-35.0); MEAN CELL VOLUME 87.1 fL (80.0-105.0); MEAN CORPUSCULAR HEMOGLOBIN 28.9 pg (25.0-35.0); MEAN CORPUSCULAR HGB CONC 33.2 g/dl (31.0-37.0); MEAN PLATELET VOLUME 9.5 fl (7.0-11.0); MONO # 0.6 (0.1-0.6); MONO % 8.8 % (1.0-6.0); PLATELET COUNT 223 10^3/uL (120.0-450.0); RED CELL DISTRIBUTION WIDTH 15.8 % (11.5-14.5); WHITE BLOOD COUNT 6.5 10^3/ul (4.5-11.0)
[2016-10-26 07:21] LABS: ALB/GLOB RATIO 0.9 (1.1-1.8); ALKALINE PHOSPHATASE 75 U/L (38-133); ALT/SGPT 36 U/L (7-56); AST/SGOT 37 U/L (15-39); BILIRUBIN,TOTAL 1.9 mg/dL (0.2-1.3); BLOOD UREA NITROGEN 19 mg/dL (7-21); CALCIUM 7.4 mg/dL (8.4-10.5); CARBON DIOXIDE 27 mmol/L (21-33); CHLORIDE 115 mmol/L (98-107); GFR AFRICAN-AMERICAN > 60; GLUCOSE,RANDOM 181 mg/dL (70-110); MAGNESIUM 1.9 mg/dL (1.7-2.2); PHOSPHOROUS 2.2 mg/dL (2.5-4.5); POTASSIUM 3.5 mmol/L (3.6-5.0); SODIUM 148 mmol/L (132-148)
[2016-10-26] MEDS: Enoxaparin 30 mg Syringe SC SCH (09:34)
[2016-10-26] MEDS: Pantoprazole 40 mg EC Tab PO SCH (09:34)
[2016-10-26] MEDS: Potassium & Sodium Phosphate PO SCH ×4 (09:34→17:42)
[2016-10-26] MEDS: Vancomycin 1gm in NS 250ml 250 ML IVPB SCH (09:35)
--- NOTE | 2016-10-26 10:10 | PN ---
DATE: 10/26/2016 The patient is in bed, was seen earlier this morning in room 263, bed 1. No fevers and no chills. PHYSICAL EXAMINATION: VITAL SIGNS: Temperature is 97, T-max was 100.3, blood pressure is 151/77, respiratory rate of 20, h eart rate of 94. HEENT: Unremarkable. NECK: Supple. LUNGS: Have decreased breath sounds. HEART: Normal S1, S2. ABDOMEN: Soft, nontender. LABORATORY EXAMINATION: Reveals a white count of 6.5, hemoglobin of 8, platelets of 223. Chemistrie s reveal the BUN of 19, creatinine of 0.6. Last procalcitonin was 0.6. It improved from 1.41. Urin alysis is noted to be negative. Stool occult blood is negative. Microbiology reveals the blood cult ures are no growth. Urine cultures are no growth. The patient had a CAT scan of the chest and CAT s can of the abdomen which revealed no acute findings. ASSESSMENT AND PLAN: An 86-year-old female with systemic inflammatory response syndrome, postoperati ve fevers, postoperative day #6, status post intramedullary pan placement in the right hip, intermitt ent fevers still with acute encephalopathy and with hypertension, osteoarthritis, anxiety, depression , history of chronic neck and lower back pain, appendectomy, hysterectomy, day #4 of vancomycin and m eropenem with negative blood cultures and negative urine cultures and improving procalcitonin with ne gative CAT scan of the chest, the lungs, no evidence of pneumonia, no acute findings in the abdomen. We will discontinue the antibiotics, rule out drug fever. We will follow closely with you. Tian Cuellar MD cc: 350 TT: 10/26/2016 10:09:59 Confirmation # [id number] Dictation # [id number] tn
[2016-10-26 15:04] LABS: PH,URINE 7.5 (4.7-8.0); URINE BILIRUBIN NEGATIVE (NEGATIVE); URINE BLOOD SMALL (NEGATIVE); URINE GLUCOSE (UA) NEGATIVE (NEGATIVE); URINE KETONE NEGATIVE (NEGATIVE); URINE LEUKOCYTE ESTERASE NEGATIVE Leu/uL (NEGATIVE); URINE PROTEIN NEGATIVE mg/dL (<30 mg/dL); URINE UROBILINOGEN 0.2 E.U./dL (<1 E.U./dL)
--- NOTE | 2016-10-26 15:18 | CP.PCM.PN ---
<Erwin Tijerina - Last Filed: 10/26/16 15:40> Subjective - Date & Time of Evaluation Date of Evaluation: 10/26/16 Time of Evaluation: 07:35 - Subjective Subjective: Pt seen and examined. Pt more awake yesterday than today, but still lethargic. Pt slightly confused. Pt denies fever, chills, chest pain, shortness of breath, nausea, and vomiting. Objective - Vital Signs/Intake and Output Vital Signs (last 24 hours): Temp Pulse Resp BP Pulse Ox 98.7 F 77 18 166/89 H 99 10/26/16 12:00 10/26/16 12:00 10/26/16 12:00 10/26/16 12:00 10/26/16 06:00 Intake and Output: 10/26/16 10/26/16 06:59 18:59 Intake Total 1870 Balance 1870 - Medications Medications: Current Medications Acetaminophen (Tylenol 325mg Tab) 650 mg PO Q6 PRN PRN Reason: Fever >100.4 F Last Admin: 10/22/16 12:19 Dose: 650 mg Acetaminophen (Tylenol 650 Mg Supp) 650 mg RC Q6H PRN PRN Reason: Fever >100.4 F Last Admin: 10/25/16 23:30 Dose: 650 mg Amlodipine Besylate (Norvasc) 10 mg PO DAILY [facility] Last Admin: 10/22/16 09:17 Dose: Not Given Aspirin (Ecotrin) 81 mg PO DAILY [facility] Last Admin: 10/26/16 09:34 Dose: 81 mg Atorvastatin Calcium (Lipitor) 20 mg PO DIN [facility] Last Admin: 10/25/16 17:21 Dose: 20 mg Calcium/Vitamin D (Oscal-D 250 Mg-125 Units Tab) 2 tab PO DAILY [facility] Last Admin: 10/22/16 09:17 Dose: Not Given Calcium/Vitamin D (Oscal-D 250 Mg-125 Units Tab) 3 tab PO DAILY [facility] Last Admin: 10/22/16 09:17 Dose: Not Given Clonazepam (Klonopin) 0.5 mg PO .AM [facility] PRN Reason: Protocol Last Admin: 10/21/16 09:40 Dose: 0.5 mg Clonazepam (Klonopin) 1 mg PO HS [facility] PRN Reason: Protocol Last Admin: 10/20/16 21:36 Dose: 1 mg Docusate Sodium (Colace) 100 mg PO BID [facility] Last Admin: 10/22/16 09:16 Dose: Not Given Duloxetine HCl (Cymbalta) 30 mg PO DAILY [facility] Last Admin: 10/22/16 09:17 Dose: Not Given Enoxaparin Sodium (Lovenox) 30 mg SC DAILY [facility] PRN Reason: Protocol Last Admin: 10/26/16 09:34 Dose: 30 mg Gabapentin (Neurontin) 100 mg PO BID [facility] PRN Reason: Protocol Last Admin: 10/22/16 09:17 Dose: Not Given Iron Sucrose 100 mg/ Sodium (Chloride) 105 mls @ 210 mls/hr IVPB DAILY [facility] Stop: 10/28/16 10:29 Last Admin: 10/26/16 12:09 Dose: 210 mls/hr Potassium Chloride 30 meq/ (Dextrose/Sodium Chloride) 1,015 mls @ 125 mls/hr IV .Q8H8M [facility] Last Admin: 10/26/16 12:10 Dose: 125 mls/hr Megestrol Acetate (Megace) 400 mg PO DAILY [facility] Morphine Sulfate (Morphine) 2 mg IVP Q4H PRN PRN Reason: Pain, moderate (4-7) Last Admin: 10/22/16 18:02 Dose: 2 mg Multivitamins (Thera Tab) 1 tab PO DAILY [facility] Last Admin: 10/22/16 09:18 Dose: Not Given Ondansetron HCl (Zofran Inj) 4 mg IVP Q6 PRN PRN Reason: Nausea/Vomiting Pantoprazole Sodium (Protonix Ec Tab) 40 mg PO DAILY [facility] Last Admin: 10/26/16 09:34 Dose: 40 mg Potassium Phos/Sodium Phos (Neutra-Phos) 1 pkt PO TID [facility] Last Admin: 10/26/16 14:37 Dose: Not Given Pregabalin (Lyrica) 50 mg PO TID [facility] Last Admin: 10/22/16 12:59 Dose: Not Given - Labs Labs: 10/26/16 06:30 10/26/16 06:30 PT 11.1 Seconds (9.9-11.8) 10/21/16 06:30 INR 1.03 (0.93-1.08) 10/21/16 06:30 APTT 28.1 Seconds (23.7-30.8) 10/21/16 06:30 - Constitutional Appears: No Acute Distress - Head Exam Head Exam: ATRAUMATIC, NORMOCEPHALIC - Eye Exam Eye Exam: absent: EOMI Additional comments: pupils sluggish - ENT Exam ENT Exam: Mucous Membranes Dry. absent: Mucous Membranes Moist - Respiratory Exam Respiratory Exam: Clear to Ausculation Bilateral. absent: Rales, Rhonchi, Wheezes - Cardiovascular Exam Cardiovascular Exam: +S1, +S2. absent: Gallop, Rubs, Murmur - GI/Abdominal Exam GI & Abdominal Exam: Soft. absent: Tenderness - Extremities Exam Extremities Exam: absent: Pedal Edema - Neurological Exam Neurological Exam: Alert, Awake Neuro motor strength exam: Left Upper Extremity: 0, Right Upper Extremity: 5 - Skin Skin Exam: Normal Color, Warm Assessment and Plan - Assessment and Plan (Free Text) Assessment: Assessment: Acute Ischemic Stroke Head CT (10/22) - acute nonhemorrhagic infarct high right parietal region Neurology, Dr. Irena Bojorquez, consulted. Help appreciated. Main SBP between 130-140 CT angio of head negative (please see full report) Carotid and vertebral artery duplex u/s - bilateral 20-39& b/l proximal ICA stenoses (please see full report) MRI and MRA contraindicated due to metal object in hips HgbA1c 5.9 Pt on pureed diet and honey thick liquids, as per dietitian recs Pt on aspirin 81 mg po qd Discussed with daughter and Gregoria Paramonte plans for follow up care after pt is stable for discharge PT shakila recommends subacute rehab upon discharge Plan accepted to [facility] for [facility] SIRS: Tmax 100.3 ID, Dr. Guzman, consulted. Help appreciated. Inital CXR - no active disease Initial procalcitonin 1.41 Repeat procalcitonin blood cultures negative urine cultures negative Repeat cultures negative Repeat CXR - no active disease Hip/Pelvis X-Ray- no gas in soft tissue, no evidence of infection (please see full report) Femur X-Ray - unremarkable (please see full report) Chest/abd/pelvis CT no acute findings Tylenol suppository prn for fever > 100.4 Antibiotics discontinued as per ID,as there is no source of infection Hyperbilirubinemia: T - bili 1.9 Hepatic U/S pending Hypokalemia: K+ 3.5 IV Potassium replacement Hypernatremia: Na+ 150 d/c NS IVF Start D51/2 NS 125 cc/hr Anemia: H/H:8.3/25.0 Iron, TIBC low IV iron Stool for occult blood negative Right hip fracture Pt day 3 s/p right hip ORIF with intramedullary nail Hip/Pelvis X-Ray - Displaced comminuted intertrochanteric fracture of the right hip (please see full report) Orthopedic surgeon, Dr. Villalta, consulted. Help appreciated. Cardiology, Dr. Lang, consulted, for cardiac clearance. EKG - no changes from previous EKG CXR - no active disease Most recent echocardiogram, 05/23/16, revealed EF of 59.3% HTN Norvasc 10 mg po qd on hold Peripheral neuropathy Neurontin on hold Lyrica on hold History of depression Cymbalta on hold Klonopin on hold Prophylactic Measures DVT: SCDs, Lovenox 30 mg sc qd GI: Protonix Multivitamins Calcium on hold Colace for constipation Zofran for nausea <Nevaeh Baugh - Last Filed: 10/26/16 17:28> Objective - Vital Signs/Intake and Output Vital Signs (last 24 hours): Temp Pulse Resp BP Pulse Ox 98.7 F 77 18 166/89 H 99 10/26/16 12:00 10/26/16 12:00 10/26/16 12:00 10/26/16 12:00 10/26/16 06:00 Intake and Output: 10/26/16 10/26/16 06:59 18:59 Intake Total 1870 Balance 1870 - Medications Medications: Current Medications Acetaminophen (Tylenol 325mg Tab) 650 mg PO Q6 PRN PRN Reason: Fever >100.4 F Last Admin: 10/22/16 12:19 Dose: 650 mg Acetaminophen (Tylenol 650 Mg Supp) 650 mg RC Q6H PRN PRN Reason: Fever >100.4 F Last Admin: 10/25/16 23:30 Dose: 650 mg Amlodipine Besylate (Norvasc) 10 mg PO DAILY [facility] Last Admin: 10/22/16 09:17 Dose: Not Given Aspirin (Ecotrin) 81 mg PO DAILY [facility] Last Admin: 10/26/16 09:34 Dose: 81 mg Atorvastatin Calcium (Lipitor) 20 mg PO DIN [facility] Last Admin: 10/25/16 17:21 Dose: 20 mg Calcium/Vitamin D (Oscal-D 250 Mg-125 Units Tab) 2 tab PO DAILY [facility] Last Admin: 10/22/16 09:17 Dose: Not Given Calcium/Vitamin D (Oscal-D 250 Mg-125 Units Tab) 3 tab PO DAILY [facility] Last Admin: 10/22/16 09:17 Dose: Not Given Clonazepam (Klonopin) 0.5 mg PO .AM [facility] PRN Reason: Protocol Last Admin: 10/21/16 09:40 Dose: 0.5 mg Clonazepam (Klonopin) 1 mg PO HS [facility] PRN Reason: Protocol Last Admin: 10/20/16 21:36 Dose: 1 mg Docusate Sodium (Colace) 100 mg PO BID [facility] Last Admin: 10/22/16 09:16 Dose: Not Given Duloxetine HCl (Cymbalta) 30 mg PO DAILY [facility] Last Admin: 10/22/16 09:17 Dose: Not Given Enoxaparin Sodium (Lovenox) 30 mg SC DAILY [facility] PRN Reason: Protocol Last Admin: 10/26/16 09:34 Dose: 30 mg Gabapentin (Neurontin) 100 mg PO BID [facility] PRN Reason: Protocol Last Admin: 10/22/16 09:17 Dose: Not Given Iron Sucrose 100 mg/ Sodium (Chloride) 105 mls @ 210 mls/hr IVPB DAILY [facility] Stop: 10/28/16 10:29 Last Admin: 10/26/16 12:09 Dose: 210 mls/hr Potassium Chloride 30 meq/ (Dextrose/Sodium Chloride) 1,015 mls @ 125 mls/hr IV .Q8H8M [facility] Last Admin: 10/26/16 12:10 Dose: 125 mls/hr Potassium Phosphate 15 mmole/ (Dextrose) 255 mls @ 42.5 mls/hr IVPB ONCE ONE Stop: 10/26/16 21:41 Megestrol Acetate (Megace) 400 mg PO DAILY [facility] Morphine Sulfate (Morphine) 2 mg IVP Q4H PRN PRN Reason: Pain, moderate (4-7) Last Admin: 10/22/16 18:02 Dose: 2 mg Multivitamins (Thera Tab) 1 tab PO DAILY [facility] Last Admin: 10/22/16 09:18 Dose: Not Given Ondansetron HCl (Zofran Inj) 4 mg IVP Q6 PRN PRN Reason: Nausea/Vomiting Pantoprazole Sodium (Protonix Ec Tab) 40 mg PO DAILY [facility] Last Admin: 10/26/16 09:34 Dose: 40 mg Potassium Phos/Sodium Phos (Neutra-Phos) 1 pkt PO TID [facility] Last Admin: 10/26/16 14:37 Dose: Not Given Pregabalin (Lyrica) 50 mg PO TID [facility] Last Admin: 10/22/16 12:59 Dose: Not Given - Labs Labs: 10/26/16 06:30 10/26/16 06:30 PT 11.1 Seconds (9.9-11.8) 10/21/16 06:30 INR 1.03 (0.93-1.08) 10/21/16 06:30 APTT 28.1 Seconds (23.7-30.8) 10/21/16 06:30 Attending/Attestation - Attestation I have personally seen and examined this patient.: Yes I have fully participated in the care of the patient.: Yes I have reviewed all pertinent clinical information, including history, physical exam and plan: Yes Notes (Text): I have seen and examined patient at bedside with the resident. Agree with the above note with the following additions/exceptions: This is 86 year old female with history of RLS, spinal stenosis, osteoarthritis, HTN, multiple falls who got admitted s/p mechanical fall and developed right hip fracture s/p ORIF on . During hospitalization, she was found to have acute non hemorrhagic infarct. Neuro consulted and recommended CT angio and carotid duplex which was reviewed. MR could not be done as she has a metal object post hip surgery. Swallow eval was done and they recommended puree diet with honey thick liquids. Continue Aspirin and lipitor. She also was given 2 units post hip surgery. Repeat Hb is stable. Patient is alert and awake today. Patient was made DNR/ DNI. She also developed SIRS. All cultures, CT chest, abdomnen and pelvis negative. ID stopped antibiotics today. Xray of hip and femur was normal. PT recommended [facility]. Discussed in detail with the daughter, daughter in law and the grand daughter. Patient has a low appetite. Will start megace. Dr Nevaeh Baugh
[2016-10-26 15:31] LABS: URINE APPEARANCE CLEAR (CLEAR); URINE COLOR YELLOW (YELLOW)
[2016-10-26 15:35] LABS: URINE BACTERIA FEW (NEG); URINE WBC 0 - 2 /hpf (0-6)
[2016-10-26] MEDS ORDERED: Potassium Phosphate 15 MMOLE in Dextrose 5% In Water 250 ML IVPB ONE (15:42)
[2016-10-27] MEDS: Potassium Chloride 30 MEQ in Dextrose 5%/0.45% NS 1,000 ML IV SCH ×3 (03:54→21:55)
[2016-10-27 06:50] VITALS: O2SAT 96
[2016-10-27 07:02] LABS: ADD MANUAL DIFF? NO
[2016-10-27 07:10] LABS: BASO # 0.01 K/mm3 (0.0-2.0); BASO % 0.1 % (0.0-3.0); EOS # 0.1 (0.0-0.7); EOS % 1.2 % (1.5-5.0); GRAN # 6.03 (1.4-6.5); GRAN % 75.2 % (50.0-68.0); HEMATOCRIT 25.6 % (36.0-48.0); LYMPH # 1.3 (1.2-3.4); LYMPH % 16.3 % (22.0-35.0); MEAN CELL VOLUME 87.4 fL (80.0-105.0); MEAN CORPUSCULAR HGB CONC 33.2 g/dl (31.0-37.0); MEAN PLATELET VOLUME 9.3 fl (7.0-11.0); MONO # 0.6 (0.1-0.6); MONO % 7.2 % (1.0-6.0); PLATELET COUNT 242 10^3/uL (120.0-450.0); RED CELL DISTRIBUTION WIDTH 15.5 % (11.5-14.5)
[2016-10-27 07:42] LABS: ALB/GLOB RATIO 0.9 (1.1-1.8); ALKALINE PHOSPHATASE 86 U/L (38-133); ALT/SGPT 51 U/L (7-56); AST/SGOT 40 U/L (15-39); BILIRUBIN,TOTAL 1.7 mg/dL (0.2-1.3); BLOOD UREA NITROGEN 16 mg/dL (7-21); CALCIUM 7.5 mg/dL (8.4-10.5); CARBON DIOXIDE 25 mmol/L (21-33); CHLORIDE 110 mmol/L (98-107); GFR AFRICAN-AMERICAN > 60; GLUCOSE,RANDOM 157 mg/dL (70-110); MAGNESIUM 1.8 mg/dL (1.7-2.2); PHOSPHOROUS 2.7 mg/dL (2.5-4.5); POTASSIUM 3.5 mmol/L (3.6-5.0); SODIUM 144 mmol/L (132-148); TOTAL PROTEIN 6.2 g/dL (5.8-8.3)
[2016-10-27] MEDS ORDERED: Potassium Chloride 20 mEq ER Tab PO ONE (08:02)
[2016-10-27] MEDS: Pantoprazole 40 mg EC Tab PO SCH (09:54)
[2016-10-27] MEDS: Potassium & Sodium Phosphate PO SCH ×3 (10:08→17:42)
[2016-10-27] MEDS: Enoxaparin 30 mg Syringe SC SCH (10:18)
[2016-10-27] MEDS: Megestrol Acetate 40 mg/ml Cup PO SCH (10:33)
--- NOTE | 2016-10-27 10:58 | CP.PCM.PN ---
<Erwin Tijerina - Last Filed: 10/27/16 10:54> Subjective - Date & Time of Evaluation Date of Evaluation: 10/27/16 Time of Evaluation: 07:16 - Subjective Subjective: Pt seen and examined. Pt sitting up in bed and resting comfortably. Pt much less lethargic today. Pt not confused like yesterday. Pt denies headache, pain, fever, chills, chest pain, shortness of breath. Objective - Vital Signs/Intake and Output Vital Signs (last 24 hours): Temp Pulse Resp BP Pulse Ox 99 F 85 20 146/69 96 10/27/16 06:00 10/27/16 06:00 10/27/16 06:00 10/27/16 06:00 10/27/16 06:00 Intake and Output: 10/27/16 10/27/16 06:59 18:59 Intake Total 1800 Output Total 100 Balance 1700 - Medications Medications: Current Medications Acetaminophen (Tylenol 325mg Tab) 650 mg PO Q6 PRN PRN Reason: Fever >100.4 F Last Admin: 10/22/16 12:19 Dose: 650 mg Acetaminophen (Tylenol 650 Mg Supp) 650 mg RC Q6H PRN PRN Reason: Fever >100.4 F Last Admin: 10/26/16 23:14 Dose: 650 mg Amlodipine Besylate (Norvasc) 10 mg PO DAILY [facility] Last Admin: 10/22/16 09:17 Dose: Not Given Aspirin (Ecotrin) 81 mg PO DAILY [facility] Last Admin: 10/27/16 09:54 Dose: 81 mg Atorvastatin Calcium (Lipitor) 20 mg PO DIN [facility] Last Admin: 10/26/16 17:38 Dose: 20 mg Calcium/Vitamin D (Oscal-D 250 Mg-125 Units Tab) 2 tab PO DAILY [facility] Last Admin: 10/22/16 09:17 Dose: Not Given Calcium/Vitamin D (Oscal-D 250 Mg-125 Units Tab) 3 tab PO DAILY [facility] Last Admin: 10/22/16 09:17 Dose: Not Given Clonazepam (Klonopin) 0.5 mg PO .AM [facility] PRN Reason: Protocol Last Admin: 10/21/16 09:40 Dose: 0.5 mg Clonazepam (Klonopin) 1 mg PO HS [facility] PRN Reason: Protocol Last Admin: 10/20/16 21:36 Dose: 1 mg Docusate Sodium (Colace) 100 mg PO BID [facility] Last Admin: 10/22/16 09:16 Dose: Not Given Duloxetine HCl (Cymbalta) 30 mg PO DAILY [facility] Last Admin: 10/27/16 09:53 Dose: 30 mg Enoxaparin Sodium (Lovenox) 30 mg SC DAILY [facility] PRN Reason: Protocol Last Admin: 10/27/16 10:18 Dose: 30 mg Gabapentin (Neurontin) 100 mg PO BID [facility] PRN Reason: Protocol Last Admin: 10/22/16 09:17 Dose: Not Given Iron Sucrose 100 mg/ Sodium (Chloride) 105 mls @ 210 mls/hr IVPB DAILY [facility] Stop: 10/28/16 10:29 Last Admin: 10/27/16 09:57 Dose: 210 mls/hr Potassium Chloride 30 meq/ (Dextrose/Sodium Chloride) 1,015 mls @ 125 mls/hr IV .Q8H8M [facility] Last Admin: 10/27/16 03:54 Dose: 125 mls/hr Megestrol Acetate (Megace) 400 mg PO DAILY [facility] Last Admin: 10/27/16 10:33 Dose: Not Given Multivitamins (Thera Tab) 1 tab PO DAILY [facility] Last Admin: 10/22/16 09:18 Dose: Not Given Ondansetron HCl (Zofran Inj) 4 mg IVP Q6 PRN PRN Reason: Nausea/Vomiting Pantoprazole Sodium (Protonix Ec Tab) 40 mg PO DAILY [facility] Last Admin: 10/27/16 09:54 Dose: 40 mg Potassium Phos/Sodium Phos (Neutra-Phos) 1 pkt PO TID [facility] Last Admin: 10/27/16 10:08 Dose: 1 pkt Pregabalin (Lyrica) 50 mg PO TID [facility] Last Admin: 10/22/16 12:59 Dose: Not Given - Labs Labs: 10/27/16 06:59 10/27/16 06:59 PT 11.1 Seconds (9.9-11.8) 10/21/16 06:30 INR 1.03 (0.93-1.08) 10/21/16 06:30 APTT 28.1 Seconds (23.7-30.8) 10/21/16 06:30 - Constitutional Appears: No Acute Distress - Head Exam Head Exam: ATRAUMATIC, NORMOCEPHALIC - Eye Exam Eye Exam: EOMI Additional comments: pupils sluggish - ENT Exam ENT Exam: Mucous Membranes Dry - Respiratory Exam Respiratory Exam: Clear to Ausculation Bilateral. absent: Rales, Rhonchi, Wheezes - Cardiovascular Exam Cardiovascular Exam: +S1, +S2. absent: Gallop, Rubs, Murmur - GI/Abdominal Exam GI & Abdominal Exam: Soft, Normal Bowel Sounds. absent: Distended, Guarding, Tenderness - Extremities Exam Extremities Exam: absent: Pedal Edema Additional comments: Internally rotated hip, dressing s/p right hip ORIF - Neurological Exam Neurological Exam: Alert, Awake, Oriented x3 - Psychiatric Exam Psychiatric exam: Normal Affect, Normal Mood - Skin Skin Exam: Normal Color, Warm Assessment and Plan - Assessment and Plan (Free Text) Assessment: Acute Ischemic Stroke Head CT (10/22) - acute nonhemorrhagic infarct high right parietal region Neurology, Dr. Irena Bojorquez, consulted. Help appreciated. Main SBP between 130-140 CT angio of head negative (please see full report) Carotid and vertebral artery duplex u/s - bilateral 20-39& b/l proximal ICA stenoses (please see full report) MRI and MRA contraindicated due to metal object in hips HgbA1c 5.9 Pt on pureed diet and honey thick liquids, as per dietitian recs Pt on aspirin 81 mg po qd Discussed with daughter and Gregoria Paramonte plans for follow up care after pt is stable for discharge PT shkaila recommends subacute rehab upon discharge Accepted to [facility] for Friday SIRS: Resolved Afebrile, nontachycardic ID, Dr. Guzman, consulted. Help appreciated. Inital CXR - no active disease Initial procalcitonin 1.41 Repeat procalcitonin blood cultures negative urine cultures negative Repeat cultures negative Repeat CXR - no active disease Hip/Pelvis X-Ray- no gas in soft tissue, no evidence of infection (please see full report) Femur X-Ray - unremarkable (please see full report) Chest/abd/pelvis CT no acute findings Tylenol suppository prn for fever > 100.4 Antibiotics discontinued as per ID,as there is no source of infection Hyperbilirubinemia: T - bili 1.7, trending down from yesterday Hepatic U/S pending Hypokalemia: K+ 3.5 IV Potassium replacement Anemia: H/H:8.5/26.8 Iron, TIBC low IV iron Stool for occult blood negative Right hip fracture Pt day 4 s/p right hip ORIF with intramedullary nail Hip/Pelvis X-Ray - Displaced comminuted intertrochanteric fracture of the right hip (please see full report) Orthopedic surgeon, Dr. Villalta, consulted. Help appreciated. Cardiology, Dr. Lang, consulted, for cardiac clearance. EKG - no changes from previous EKG CXR - no active disease Most recent echocardiogram, 05/23/16, revealed EF of 59.3% HTN Norvasc 10 mg po qd on hold Peripheral neuropathy Neurontin on hold Lyrica on hold History of depression Cymbalta on hold Klonopin on hold Prophylactic Measures DVT: SCDs, Lovenox 30 mg sc qd GI: Protonix Multivitamins Calcium on hold Colace for constipation Zofran for nausea <Nevaeh Baugh B - Last Filed: 10/27/16 13:29> Objective - Vital Signs/Intake and Output Vital Signs (last 24 hours): Temp Pulse Resp BP Pulse Ox 98.6 F 88 18 170/77 H 96 10/27/16 12:00 10/27/16 12:00 10/27/16 12:00 10/27/16 12:00 10/27/16 06:00 Intake and Output: 10/27/16 10/27/16 06:59 18:59 Intake Total 1800 Output Total 100 Balance 1700 - Medications Medications: Current Medications Acetaminophen (Tylenol 325mg Tab) 650 mg PO Q6 PRN PRN Reason: Fever >100.4 F Last Admin: 10/22/16 12:19 Dose: 650 mg Acetaminophen (Tylenol 650 Mg Supp) 650 mg RC Q6H PRN PRN Reason: Fever >100.4 F Last Admin: 10/26/16 23:14 Dose: 650 mg Amlodipine Besylate (Norvasc) 10 mg PO DAILY [facility] Last Admin: 10/22/16 09:17 Dose: Not Given Aspirin (Ecotrin) 81 mg PO DAILY [facility] Last Admin: 10/27/16 09:54 Dose: 81 mg Atorvastatin Calcium (Lipitor) 20 mg PO DIN [facility] Last Admin: 10/26/16 17:38 Dose: 20 mg Calcium/Vitamin D (Oscal-D 250 Mg-125 Units Tab) 2 tab PO DAILY [facility] Last Admin: 10/22/16 09:17 Dose: Not Given Calcium/Vitamin D (Oscal-D 250 Mg-125 Units Tab) 3 tab PO DAILY [facility] Last Admin: 10/22/16 09:17 Dose: Not Given Clonazepam (Klonopin) 0.5 mg PO .AM [facility] PRN Reason: Protocol Last Admin: 10/21/16 09:40 Dose: 0.5 mg Clonazepam (Klonopin) 1 mg PO HS [facility] PRN Reason: Protocol Last Admin: 10/20/16 21:36 Dose: 1 mg Docusate Sodium (Colace) 100 mg PO BID [facility] Last Admin: 10/22/16 09:16 Dose: Not Given Duloxetine HCl (Cymbalta) 30 mg PO DAILY [facility] Last Admin: 10/27/16 09:53 Dose: 30 mg Enoxaparin Sodium (Lovenox) 30 mg SC DAILY [facility] PRN Reason: Protocol Last Admin: 10/27/16 10:18 Dose: 30 mg Gabapentin (Neurontin) 100 mg PO BID [facility] PRN Reason: Protocol Last Admin: 10/22/16 09:17 Dose: Not Given Iron Sucrose 100 mg/ Sodium (Chloride) 105 mls @ 210 mls/hr IVPB DAILY [facility] Stop: 10/28/16 10:29 Last Admin: 10/27/16 09:57 Dose: 210 mls/hr Potassium Chloride 30 meq/ (Dextrose/Sodium Chloride) 1,015 mls @ 125 mls/hr IV .Q8H8M [facility] Last Admin: 10/27/16 03:54 Dose: 125 mls/hr Megestrol Acetate (Megace) 400 mg PO DAILY [facility] Last Admin: 10/27/16 10:33 Dose: Not Given Multivitamins (Thera Tab) 1 tab PO DAILY [facility] Last Admin: 10/22/16 09:18 Dose: Not Given Ondansetron HCl (Zofran Inj) 4 mg IVP Q6 PRN PRN Reason: Nausea/Vomiting Pantoprazole Sodium (Protonix Ec Tab) 40 mg PO DAILY [facility] Last Admin: 10/27/16 09:54 Dose: 40 mg Potassium Phos/Sodium Phos (Neutra-Phos) 1 pkt PO TID [facility] Last Admin: 10/27/16 10:08 Dose: 1 pkt Pregabalin (Lyrica) 50 mg PO TID [facility] Last Admin: 10/22/16 12:59 Dose: Not Given - Labs Labs: 10/27/16 06:59 10/27/16 06:59 PT 11.1 Seconds (9.9-11.8) 10/21/16 06:30 INR 1.03 (0.93-1.08) 10/21/16 06:30 APTT 28.1 Seconds (23.7-30.8) 10/21/16 06:30 Attending/Attestation - Attestation I have personally seen and examined this patient.: Yes I have fully participated in the care of the patient.: Yes I have reviewed all pertinent clinical information, including history, physical exam and plan: Yes Notes (Text): I have seen and examined patient at bedside with the resident. Agree with the above note with the following additions/exceptions: This is 86 year old female with history of RLS, spinal stenosis, osteoarthritis, HTN, multiple falls who got admitted s/p mechanical fall and developed right hip fracture s/p ORIF on . During hospitalization, she was found to have acute non hemorrhagic infarct. Neuro consulted and recommended CT angio and carotid duplex which was reviewed. MR could not be done as she has a metal object post hip surgery. Swallow eval was done and they recommended puree diet with honey thick liquids. Swallow eval was repeated yesterday and there was no change in recommendations. Continue Aspirin and lipitor. She also was given 2 units post hip surgery. Repeat Hb is stable. Patient is alert and awake today. Patient was made DNR/ DNI. She also developed SIRS. All cultures, CT chest, abdomen and pelvis negative. ID stopped antibiotics . Xray of hip and femur was normal. PT recommended [facility]. Patient was able to sit on the chair yesterday. Discussed in detail with the family yesterday. Continue megace for appetite stimulation. Dr Nevaeh Baugh
--- NOTE | 2016-10-27 11:43 | PN ---
DATE: 10/27/2016 The patient is in bed in no acute distress, nontoxic. PHYSICAL EXAMINATION: VITAL SIGNS: Temperature is 99, blood pressure is 140/60, respiratory rate of 18. HEENT: Unremarkable. NECK: Supple. LUNGS: Decreased breath sounds. HEART: Normal S1, S2. ABDOMEN: Soft, nontender. LABORATORY DATA: Reveals a white count of 8000, hemoglobin of 8, platelets of 242, BUN of 16, creati nine of 0.6, procalcitonin 0.6. Urinalysis is noted. Microbiology reveals the blood cultures and ur ine cultures are negative. ASSESSMENT AND PLAN: An 86-year-old female with systemic inflammatory response syndrome, postoperati ve fevers, post-procedure day #7, status post intramedullary pan placement in right hip, intermittent fevers, still with acute encephalopathy, hypertension, osteoarthritis, anxiety, depression, history of chronic neck pain and lower back pain, appendicectomy, hysterectomy, had received 4 days of vancom ycin and meropenem. The patient had a CAT scan of the chest that showed no infiltrates. CAT scan of the abdomen which was negative. Currently, now the patient has been afebrile. Last temperature was at midnight the day before. The patient is off of antibiotics at this point. Possible drug fever i s being entertained. Currently off of antibiotics. We will follow with you. Tian Cuellar MD cc: [id number] TT: 10/27/2016 11:43:12 Confirmation # [id number] Dictation # [id number] riddhi
[2016-10-28] MEDS: Potassium Chloride 30 MEQ in Dextrose 5%/0.45% NS 1,000 ML IV SCH (06:33)
[2016-10-28 06:45] LABS: ADD MANUAL DIFF? NO
[2016-10-28 07:04] LABS: ALB/GLOB RATIO 0.9 (1.1-1.8); ALKALINE PHOSPHATASE 82 U/L (38-133); ALT/SGPT 43 U/L (7-56); AST/SGOT 32 U/L (15-39); BILIRUBIN,TOTAL 1.4 mg/dL (0.2-1.3); BLOOD UREA NITROGEN 14 mg/dL (7-21); CALCIUM 7.8 mg/dL (8.4-10.5); CARBON DIOXIDE 26 mmol/L (21-33); CHLORIDE 109 mmol/L (98-107); GFR AFRICAN-AMERICAN > 60; GLUCOSE,RANDOM 137 mg/dL (70-110); MAGNESIUM 1.8 mg/dL (1.7-2.2); PHOSPHOROUS 2.6 mg/dL (2.5-4.5); POTASSIUM 3.9 mmol/L (3.6-5.0); SODIUM 142 mmol/L (132-148); TOTAL PROTEIN 6.4 g/dL (5.8-8.3)
[2016-10-28 07:11] LABS: BASO # 0.01 K/mm3 (0.0-2.0); BASO % 0.1 % (0.0-3.0); EOS # 0.2 (0.0-0.7); EOS % 1.8 % (1.5-5.0); GRAN # 6.76 (1.4-6.5); GRAN % 78.2 % (50.0-68.0); HEMATOCRIT 27.2 % (36.0-48.0); LYMPH # 1.3 (1.2-3.4); LYMPH % 14.6 % (22.0-35.0); MEAN CELL VOLUME 88.6 fL (80.0-105.0); MEAN CORPUSCULAR HGB CONC 32.7 g/dl (31.0-37.0); MEAN PLATELET VOLUME 9.9 fl (7.0-11.0); MONO # 0.5 (0.1-0.6); MONO % 5.3 % (1.0-6.0); PLATELET COUNT 280 10^3/uL (120.0-450.0); RED CELL DISTRIBUTION WIDTH 15.5 % (11.5-14.5); WHITE BLOOD COUNT 8.7 10^3/ul (4.5-11.0)
--- NOTE | 2016-10-28 09:10 | CP.PCM.PN ---
Subjective - Date & Time of Evaluation Date of Evaluation: 10/28/16 Time of Evaluation: 09:07 - Subjective Subjective: Pt awake, alert. Afebrile R hip: incisions clean and dry no cellulitis thigh soft and non tender NVI distally Ortho stable Plan for subacute rehab Objective - Vital Signs/Intake and Output Vital Signs (last 24 hours): Temp Pulse Resp BP Pulse Ox 98.6 F 79 20 151/81 H 96 10/28/16 06:00 10/28/16 06:00 10/28/16 06:00 10/28/16 06:00 10/27/16 06:00 Intake and Output: 10/28/16 10/28/16 06:59 18:59 Intake Total 60 Balance 60 - Medications Medications: Current Medications Acetaminophen (Tylenol 325mg Tab) 650 mg PO Q6 PRN PRN Reason: Fever >100.4 F Last Admin: 10/22/16 12:19 Dose: 650 mg Acetaminophen (Tylenol 650 Mg Supp) 650 mg RC Q6H PRN PRN Reason: Fever >100.4 F Last Admin: 10/26/16 23:14 Dose: 650 mg Amlodipine Besylate (Norvasc) 10 mg PO DAILY [facility] Last Admin: 10/22/16 09:17 Dose: Not Given Aspirin (Ecotrin) 81 mg PO DAILY [facility] Last Admin: 10/27/16 09:54 Dose: 81 mg Atorvastatin Calcium (Lipitor) 20 mg PO DIN [facility] Last Admin: 10/27/16 17:42 Dose: 20 mg Calcium/Vitamin D (Oscal-D 250 Mg-125 Units Tab) 3 tab PO DAILY [facility] Last Admin: 10/22/16 09:17 Dose: Not Given Clonazepam (Klonopin) 0.5 mg PO .AM [facility] PRN Reason: Protocol Last Admin: 10/21/16 09:40 Dose: 0.5 mg Clonazepam (Klonopin) 1 mg PO HS [facility] PRN Reason: Protocol Last Admin: 10/20/16 21:36 Dose: 1 mg Docusate Sodium (Colace) 100 mg PO BID [facility] Last Admin: 10/22/16 09:16 Dose: Not Given Duloxetine HCl (Cymbalta) 30 mg PO DAILY [facility] Last Admin: 10/27/16 09:53 Dose: 30 mg Enoxaparin Sodium (Lovenox) 30 mg SC DAILY [facility] PRN Reason: Protocol Last Admin: 10/27/16 10:18 Dose: 30 mg Gabapentin (Neurontin) 100 mg PO BID [facility] PRN Reason: Protocol Last Admin: 10/22/16 09:17 Dose: Not Given Iron Sucrose 100 mg/ Sodium (Chloride) 105 mls @ 210 mls/hr IVPB DAILY [facility] Stop: 10/28/16 10:29 Last Admin: 10/27/16 09:57 Dose: 210 mls/hr Potassium Chloride 30 meq/ (Dextrose/Sodium Chloride) 1,015 mls @ 125 mls/hr IV .Q8H8M [facility] Last Admin: 10/28/16 06:33 Dose: 125 mls/hr Megestrol Acetate (Megace) 400 mg PO DAILY [facility] Last Admin: 10/27/16 10:33 Dose: Not Given Multivitamins (Thera Tab) 1 tab PO DAILY [facility] Last Admin: 10/22/16 09:18 Dose: Not Given Ondansetron HCl (Zofran Inj) 4 mg IVP Q6 PRN PRN Reason: Nausea/Vomiting Pantoprazole Sodium (Protonix Ec Tab) 40 mg PO DAILY [facility] Last Admin: 10/27/16 09:54 Dose: 40 mg Potassium Phos/Sodium Phos (Neutra-Phos) 1 pkt PO TID [facility] Last Admin: 10/27/16 17:42 Dose: 1 pkt Pregabalin (Lyrica) 50 mg PO TID [facility] Last Admin: 10/22/16 12:59 Dose: Not Given - Labs Labs: 10/28/16 06:30 10/28/16 06:30 PT 11.1 Seconds (9.9-11.8) 10/21/16 06:30 INR 1.03 (0.93-1.08) 10/21/16 06:30 APTT 28.1 Seconds (23.7-30.8) 10/21/16 06:30
[2016-10-28] MEDS: Megestrol Acetate 40 mg/ml Cup PO SCH (09:45)
[2016-10-28] MEDS: Potassium & Sodium Phosphate PO SCH (09:52)
[2016-10-28] MEDS: Pantoprazole 40 mg EC Tab PO SCH (09:53)
[2016-10-28] MEDS: Calcium-Vit D 250 mg-125 Units Tab UD PO SCH (09:53)
[2016-10-28] MEDS: Enoxaparin 30 mg Syringe SC SCH (09:54)
[2016-10-28 11:34] VITALS: PULSE 77
[2016-10-28 11:47] VITALS: BP 152/71; RESP 18; TEMP 98.9
--- NOTE | 2016-10-28 13:12 | US ---
HISTORY: elevated lfts COMPARISON: None. TECHNIQUE: Sonographic evaluation of the right upper quadrant of the abdomen. FINDINGS: LIVER: Measures 16.9 cm in length. Normal echogenicity of the liver parenchyma. No mass. No intrahepatic bile duct dilatation. GALLBLADDER: Unremarkable. No gallstones. COMMON BILE DUCT: Measures 3 mm. No stones. No dilatation. PANCREAS: Unremarkable as visualized. No mass. No ductal dilatation. RIGHT KIDNEY: Measures 10.7 cm in length. Normal echogenicity. No calculus, mass, or hydronephrosis. AORTA: No aneurysmal dilatation. IVC: Unremarkable. OTHER FINDINGS: None . IMPRESSION: Unremarkable abdominal ultrasound examination. No evidence of biliary obstruction.
--- NOTE | 2016-10-28 15:26 | CP.PCM.PN ---
Subjective - Date & Time of Evaluation Date of Evaluation: 10/28/16 Time of Evaluation: 09:50 - Subjective Subjective: Comfortable in bed, not in distress, no fevers, more awake and alert today, no diarrhea. Objective - Vital Signs/Intake and Output Vital Signs (last 24 hours): Temp Pulse Resp BP Pulse Ox 98.6 F 79 20 151/81 H 96 10/28/16 06:00 10/28/16 06:00 10/28/16 06:00 10/28/16 06:00 10/27/16 06:00 Intake and Output: 10/28/16 10/28/16 06:59 18:59 Intake Total 60 Balance 60 - Medications Medications: Current Medications Acetaminophen (Tylenol 325mg Tab) 650 mg PO Q6 PRN PRN Reason: Fever >100.4 F Last Admin: 10/22/16 12:19 Dose: 650 mg Acetaminophen (Tylenol 650 Mg Supp) 650 mg RC Q6H PRN PRN Reason: Fever >100.4 F Last Admin: 10/26/16 23:14 Dose: 650 mg Amlodipine Besylate (Norvasc) 10 mg PO DAILY [facility] Last Admin: 10/22/16 09:17 Dose: Not Given Aspirin (Ecotrin) 81 mg PO DAILY [facility] Last Admin: 10/27/16 09:54 Dose: 81 mg Atorvastatin Calcium (Lipitor) 20 mg PO DIN [facility] Last Admin: 10/27/16 17:42 Dose: 20 mg Calcium/Vitamin D (Oscal-D 250 Mg-125 Units Tab) 3 tab PO DAILY [facility] Last Admin: 10/22/16 09:17 Dose: Not Given Clonazepam (Klonopin) 0.5 mg PO .AM [facility] PRN Reason: Protocol Last Admin: 10/21/16 09:40 Dose: 0.5 mg Clonazepam (Klonopin) 1 mg PO HS [facility] PRN Reason: Protocol Last Admin: 10/20/16 21:36 Dose: 1 mg Docusate Sodium (Colace) 100 mg PO BID [facility] Last Admin: 10/22/16 09:16 Dose: Not Given Duloxetine HCl (Cymbalta) 30 mg PO DAILY [facility] Last Admin: 10/27/16 09:53 Dose: 30 mg Enoxaparin Sodium (Lovenox) 30 mg SC DAILY [facility] PRN Reason: Protocol Last Admin: 10/27/16 10:18 Dose: 30 mg Gabapentin (Neurontin) 100 mg PO BID [facility] PRN Reason: Protocol Last Admin: 10/22/16 09:17 Dose: Not Given Iron Sucrose 100 mg/ Sodium (Chloride) 105 mls @ 210 mls/hr IVPB DAILY [facility] Stop: 10/28/16 10:29 Last Admin: 10/27/16 09:57 Dose: 210 mls/hr Potassium Chloride 30 meq/ (Dextrose/Sodium Chloride) 1,015 mls @ 125 mls/hr IV .Q8H8M [facility] Last Admin: 10/28/16 06:33 Dose: 125 mls/hr Megestrol Acetate (Megace) 400 mg PO DAILY [facility] Last Admin: 10/27/16 10:33 Dose: Not Given Multivitamins (Thera Tab) 1 tab PO DAILY [facility] Last Admin: 10/22/16 09:18 Dose: Not Given Ondansetron HCl (Zofran Inj) 4 mg IVP Q6 PRN PRN Reason: Nausea/Vomiting Pantoprazole Sodium (Protonix Ec Tab) 40 mg PO DAILY [facility] Last Admin: 10/27/16 09:54 Dose: 40 mg Potassium Phos/Sodium Phos (Neutra-Phos) 1 pkt PO TID [facility] Last Admin: 10/27/16 17:42 Dose: 1 pkt Pregabalin (Lyrica) 50 mg PO TID [facility] Last Admin: 10/22/16 12:59 Dose: Not Given - Labs Labs: 10/28/16 06:30 10/28/16 06:30 PT 11.1 Seconds (9.9-11.8) 10/21/16 06:30 INR 1.03 (0.93-1.08) 10/21/16 06:30 APTT 28.1 Seconds (23.7-30.8) 10/21/16 06:30 - Constitutional Appears: Non-toxic, No Acute Distress - Head Exam Head Exam: NORMAL INSPECTION - ENT Exam ENT Exam: Mucous Membranes Moist - Neck Exam Neck Exam: absent: Lymphadenopathy, Meningismus - Respiratory Exam Respiratory Exam: Decreased Breath Sounds - Cardiovascular Exam Cardiovascular Exam: +S1, +S2 - GI/Abdominal Exam GI & Abdominal Exam: Soft. absent: Tenderness Assessment and Plan - Assessment and Plan (Free Text) Plan: Assessment Systemic Inflammatory Response Syndrome, with no evidence of systemic infection , clinically improved Acute encephalopathy in a patient with acute cerebral infarct, clinically improved HTN osteoarthritis anxiety depression history of chronic neck and lower back pain S/P left hip fracture and surgery S/P left shoulder fracture S/P appendectomy S/P hysterectomy Plan continue to monitor off antibiotics since she is at risk for nosocomial infections
--- NOTE | 2016-10-28 17:27 | CP.PCM.DIS ---
Provider - Provider Date of Admission: 10/20/16 20:10 Attending physician: Nevaeh Baugh MD Primary care physician: Cooper Adam MD Time Spent in preparation of Discharge (in minutes): 47 Hospital Course - Lab Results Lab Results: Micro Results 10/26/16 16:00 Urine,Clean Catch Urine Culture - Final No Growth (<1,000 CFU/ML) 10/24/16 07:45 Blood-Venous Blood Culture - Preliminary NO GROWTH AFTER 4 DAYS 10/24/16 07:45 Blood-Venous Blood Culture - Preliminary NO GROWTH AFTER 4 DAYS 10/22/16 12:30 Blood Blood Culture - Final NO GROWTH AFTER 5 DAYS 10/22/16 12:30 Blood Gram Stain - Final TEST NOT PERFORMED 10/22/16 12:40 Blood Blood Culture - Final NO GROWTH AFTER 5 DAYS 10/22/16 12:40 Blood Gram Stain - Final TEST NOT PERFORMED 10/21/16 00:50 Urine,Clean Catch Urine Culture - Final No Growth (<1,000 CFU/ML) Most Recent Lab Values WBC 8.7 10^3/ul (4.5-11.0) 10/28/16 06:30 RBC 3.07 10^6/uL (3.5-6.1) L 10/28/16 06:30 Hgb 8.9 gm/dL (12.0-16.0) L 10/28/16 06:30 Hct 27.2 % (36.0-48.0) L 10/28/16 06:30 MCV 88.6 fL (80.0-105.0) 10/28/16 06:30 MCH 29.0 pg (25.0-35.0) 10/28/16 06:30 MCHC 32.7 g/dl (31.0-37.0) 10/28/16 06:30 RDW 15.5 % (11.5-14.5) H 10/28/16 06:30 Plt Count 280 10^3/uL (120.0-450.0) 10/28/16 06:30 MPV 9.9 fl (7.0-11.0) 10/28/16 06:30 Gran % 78.2 % (50.0-68.0) H 10/28/16 06:30 Lymph % (Auto) 14.6 % (22.0-35.0) L 10/28/16 06:30 [place] % (Auto) 5.3 % (1.0-6.0) 10/28/16 06:30 Eos % (Auto) 1.8 % (1.5-5.0) 10/28/16 06:30 Baso % (Auto) 0.1 % (0.0-3.0) 10/28/16 06:30 Gran # 6.76 (1.4-6.5) H 10/28/16 06:30 Lymph # 1.3 (1.2-3.4) 10/28/16 06:30 [place] # 0.5 (0.1-0.6) 10/28/16 06:30 Eos # 0.2 (0.0-0.7) 10/28/16 06:30 Baso # 0.01 K/mm3 (0.0-2.0) 10/28/16 06:30 PT 11.1 Seconds (9.9-11.8) 10/21/16 06:30 INR 1.03 (0.93-1.08) 10/21/16 06:30 APTT 28.1 Seconds (23.7-30.8) 10/21/16 06:30 Sodium 142 mmol/L (132-148) 10/28/16 06:30 Potassium 3.9 mmol/L (3.6-5.0) 10/28/16 06:30 Chloride 109 mmol/L (98-107) H 10/28/16 06:30 Carbon Dioxide 26 mmol/L (21-33) 10/28/16 06:30 Anion Gap 11 (10-20) 10/28/16 06:30 BUN 14 mg/dL (7-21) 10/28/16 06:30 Creatinine 0.5 mg/dL (0.5-1.4) 10/28/16 06:30 Est GFR ( Amer) > 60 10/28/16 06:30 Est GFR (Non-Af Amer) > 60 10/28/16 06:30 Random Glucose 137 mg/dL (70-110) H 10/28/16 06:30 Hemoglobin A1c 5.9 % (4.2-6.5) 10/22/16 09:22 Calcium 7.8 mg/dL (8.4-10.5) L 10/28/16 06:30 Phosphorus 2.6 mg/dL (2.5-4.5) 10/28/16 06:30 Magnesium 1.8 mg/dL (1.7-2.2) 10/28/16 06:30 Iron 19 ug/dL (45-180) L 10/24/16 08:00 TIBC 219 ug/dL (265-497) L 10/24/16 08:00 % Saturation 9 % (20-55) L 10/24/16 08:00 Ferritin 152.0 ng/mL 10/24/16 08:00 Total Bilirubin 1.4 mg/dL (0.2-1.3) H 10/28/16 06:30 AST 32 U/L (15-39) 10/28/16 06:30 ALT 43 U/L (7-56) 10/28/16 06:30 Alkaline Phosphatase 82 U/L (38-133) 10/28/16 06:30 Total Creatine Kinase 47 U/L (35-230) 10/20/16 18:15 Total Protein 6.4 g/dL (5.8-8.3) 10/28/16 06:30 Albumin 3.0 g/dL (3.0-4.8) 10/28/16 06:30 Globulin 3.4 gm/dL 10/28/16 06:30 Albumin/Globulin Ratio 0.9 (1.1-1.8) L 10/28/16 06:30 Triglycerides 126 mg/dL (35-160) 10/22/16 09:22 Cholesterol 102 mg/dL (130-200) L 10/22/16 09:22 LDL Cholesterol Direct 37 mg/dL (0-129) 10/22/16 09:22 HDL Cholesterol 33 mg/dL (29-60) 10/22/16 09:22 Vitamin B12 491 pg/mL (239-931) 10/24/16 08:00 Folate > 20.0 ng/mL 10/24/16 08:00 Procalcitonin 0.60 NG/ML (0.19-0.49) H 10/24/16 07:30 Free T4 1.34 ng/dL (0.78-2.19) 10/21/16 06:30 TSH 3rd Generation 0.81 mIU/mL (0.46-4.68) 10/21/16 06:30 Urine Color Yellow (YELLOW) 10/26/16 14:30 Urine Appearance Clear (CLEAR) 10/26/16 14:30 Urine pH 7.5 (4.7-8.0) 10/26/16 14:30 Ur Specific [place] 1.020 (1.005-1.035) 10/26/16 14:30 Urine Protein Negative mg/dL (<30 mg/dL) 10/26/16 14:30 Urine Glucose (UA) Negative mg/dL (NEGATIVE) 10/26/16 14:30 Urine Ketones Negative mg/dL (NEGATIVE) 10/26/16 14:30 Urine Blood Small (NEGATIVE) H 10/26/16 14:30 Urine Nitrate Negative (NEGATIVE) 10/26/16 14:30 Urine Bilirubin Negative (NEGATIVE) 10/26/16 14:30 Urine Urobilinogen 0.2 E.U./dL (<1 E.U./dL) 10/26/16 14:30 Ur Leukocyte Esterase Negative [place]/uL (NEGATIVE) 10/26/16 14:30 Urine RBC 1 - 3 /hpf (0-2) 10/26/16 14:30 Urine WBC 0 - 2 /hpf (0-6) 10/26/16 14:30 Ur Epithelial Cells 1 - 3 /hpf (0-5) 10/26/16 14:30 Urine Bacteria Few (NEG) 10/26/16 14:30 Urine Osmolality 461 mosm/kg (50-645) 10/26/16 14:30 Ur Random Sodium 144 meq/L 10/26/16 14:30 Ur Random Potassium 30.3 meq/L 10/26/16 14:30 Stool Occult Blood Negative (NEGATIVE) 10/25/16 13:10 Blood Type O POSITIVE 10/20/16 18:15 Antibody Screen Negative 10/20/16 18:15 Crossmatch See Detail 10/20/16 18:15 BBK History Checked Patient has bt 10/20/16 18:15 - Hospital Course Hospital Course: HPI: Pt is an 86 year old female with a PMHx of HTN, multiple falls, left hip fracture s/p ORIF, left shoulder fracture, peripheral neuropathy, osteoarthritis , depression, anxiety, chronic neck and low back who pain presented with a right hip fracture after a mechanical fall at home. Hospital Course: Hip/Pelvis X-Ray revealed displaced comminuted intertrochanteric fracture of the right hip (please see full report). Pt received cardiac clearance from corporate communications manager, Dr. Lang, who was consulted. Orthopedic surgery, Dr. Villalta, consulted and Right Hip open reduction, internal fixation was performed. Day 1 post op pt looked altered. 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 Neurology, Dr. Bojorquez was consulted. Pt was started on aspirin and lipitor. CT angio of head was negative (please see full report). Carotid and vertebral artery duplex u/s - bilateral 20-39& b/l proximal ICA stenoses ( please see full report). MRI and MRA were contraindicated due to acute placement of metal object in right hip. Pt also developed fever post operative. Initial procalcitonin was 1.41. Pt was started on antibiotics. Pt had no leukocytosis. Pancultures were negative, and repeat pancultures were negative. Serial chest X-rays revealed no active disease (please see reports). Repeat procalcitonin was 0.60. Pt's antibiotics were discontinued per ID as no source of infection was found. Pt's clinical condition improved throughout hospital couse. Pt remained afebrile for greater than 24 hours. PT was much less confused and awake, alert, oriented to self and place, but not time upon discharge. Pt was accepted to subacute rehab. Discharge Exam - Head Exam Head Exam: NORMAL INSPECTION - Eye Exam Pupil Exam: Miosis - ENT Exam ENT Exam: Mucous Membranes Dry. absent: Mucous Membranes Moist - Respiratory Exam Respiratory Exam: Clear to PA & Lateral. absent: Rales, Rhonchi, Wheezes - Cardiovascular Exam Cardiovascular Exam: +S1, +S2. absent: Gallop, Rubs, Systolic Murmur - GI/Abdominal Exam GI & Abdominal Exam: absent: Distended, Guarding - Extremities Exam Extremities exam: full ROM - Neurological Exam Neurological exam: Alert - Psychiatric Exam Psychiatric exam: Normal Affect, Normal Mood - Skin Skin Exam: Normal Color, Warm Discharge Plan - Discharge Medications Prescriptions: Atorvastatin [Lipitor] 20 mg PO DIN #30 tab - Follow Up Plan Condition: STABLE Disposition: TRANSF TO SNF Patient education suggested?: Yes Instructions: Ischemic Stroke (DC), ORIF of Hip Fracture (DC) Additional Instructions: Please follow up with PMD, Dr. Adam. Please also follow up with neurologist, Dr. Bojorquez, or neurologist of choice, as well as orthopedic surgeon , Dr. Villalta, as soon as possible. Please take Lipitor as prescribed. Please also continue taking baby aspirin daily as well norvasc. Please re start multivitamins and other home medications as per discretion of primary medical doctor. Please return to the hospital if symptoms worsen or new symptoms arise. Referrals: Gigi Villalta MD [Staff Provider] - Cooper Adam MD [Primary Care Provider] -
== END 2016-10-28 14:45 | DRG 480 ==
LOC: ED 18:00 → ERH 20:10 → 5RNO 21:16 → 2RNO 10-22 15:36
PROVIDERS: ADMIT Internal Medicine; ATTEND Hospitalist
PROC: 0QS606Z Reposition Right Upper Femur with Intramedullary Internal Fixation Device, Open Approach (ICD-10-PCS; principal; 2016-10-21 17:30)
PROC: 30233N1 Transfusion of Nonautologous Red Blood Cells into Peripheral Vein, Percutaneous Approach (ICD-10-PCS; 2016-10-22)
DX: S72.141A Displaced intertrochanteric fracture of right femur, initial encounter for closed fracture (principal); I63.9 Cerebral infarction, unspecified; G93.40 Encephalopathy, unspecified; E87.0 Hyperosmolality and hypernatremia; R65.10 Systemic inflammatory response syndrome (SIRS) of non-infectious origin without acute organ dysfunction; G81.94 Hemiplegia, unspecified affecting left nondominant side; D62 Acute posthemorrhagic anemia; S00.03XA Contusion of scalp, initial encounter; R50.82 Postprocedural fever; G62.9 Polyneuropathy, unspecified; I10 Essential (primary) hypertension; F32.9 Major depressive disorder, single episode, unspecified; K59.00 Constipation, unspecified; M54.2 Cervicalgia; M54.5 Low back pain; F41.9 Anxiety disorder, unspecified; R29.725 NIHSS score 25; M48.00 Spinal stenosis, site unspecified; G25.81 Restless legs syndrome; Z66 Do not resuscitate; E87.6 Hypokalemia; R29.6 Repeated falls; M81.0 Age-related osteoporosis without current pathological fracture; W01.0XXA Fall on same level from slipping, tripping and stumbling without subsequent striking against object, initial encounter; Y92.019 Unspecified place in single-family (private) house as the place of occurrence of the external cause; Y93.G1 Activity, food preparation and clean up; Y99.8 Other external cause status; Z88.6 Allergy status to analgesic agent